=== PATIENT | male | born 1950 | race Caucasian/White ===

== ENCOUNTER 2021-06-19 17:12 | Emergency (ER) | payer MEDICARE, MEDICAID, SELFPAY ==
--- NOTE | 2021-06-19 17:31 | ED_ITS ---
HPI - Overdose General Chief Complaint: Overdose Stated Complaint: OD Time Seen by Provider: 06/19/21 17:31 History of Present Illness HPI Narrative: Patient is a 70-year-old male presents today with having overdose on heroin. Patient noted to be apnea. Given Narcan by PD. Patient subs equently woke up sent to [facility] for further evaluation. Patient from home. No fever no chills no cough no congestion or upper respiratory symptoms. Has no complaints at this time. Related Data Allergies Allergy/AdvReac Type Severity Reaction Status Date / Time No Known Allergies Allergy Verified 06/19/21 17:35 Review of Systems Review of Systems: No fever no chills no chest pain No shortness of breath no diaphoresis All systems reviewed otherwise negative [facility] Past Medical History Attestation statement: The following information was validated with the patient. Social History Social History Advance Directives: No Advance Directives Information Provided: Yes Physical Exam Vital Signs: Vital Signs: Last Vital Signs Temp 98.1 F 06/19/21 17:32 Pulse 101 H 06/19/21 17:32 Resp 120 H 06/19/21 17:32 BP 154/71 H 06/19/21 17:32 Pulse Ox 97 06/19/21 17:32 Body Mass Index 34.2 Appearance: Alert. Oriented X3. No acute distress. Eyes: Pupils equal, round and reactive to light. ENT: Pharynx normal. Neck: Normal inspection. Neck supple. No lymph nodes noted. No crepitus CVS: Normal heart rate and rhythm. Pulses normal. Normal S1 and S2 Respiratory: No respiratory distress. Breath sounds normal. No Wheezing. No rales Abdomen: Soft and nontender. No rigidity. No distention. good BS x4 Skin: Skin warm and dry. Normal skin color. Normal skin turgor. Extremities: No lower extremity edema. Neurovascular intact to all extremities. No Lacerations. No Rash Neuro: Oriented X 3. No motor deficit. No sensory deficit. Moving all extermities. No slurred speech MDM - Overdose MDM Narrative Medical decision making narrative: Explained to patient the need to stop using heroin. Patient also need to be monitored for approximately 2 hours. Currently in stable condition. Discharge Plan Discharge Clinical Impression: Opioid abuse Patient Disposition: Home, Self-Care Instructions: Polysubstance Abuse (ED), Narcotic Use Disorder (ED) Additional Instructions: Please stop using heroin. He almost by using heroin tonight. Please go to detox. Referrals: [facility] [Physician] - 2 days
[2021-06-19 17:32] VITALS: BP 154/71; PULSE 101; RESP 120; TEMP 36.7; O2SAT 97; BMI 34.2
--- NOTE | 2021-06-19 17:51 | MHC.RECOVSUP ---
? Reason for consult Recovery Support o Current location: ED18H o Identified substance use concern: Heroin - Overdose - Support ? Intervention: o Community resources provided o Harm reduction discussion ? Plan: <del>o</del> <del>Referral</del> <del>to</del> <del>[facility]</del> <del>o</del> <del>Bed</del> <del>search</del> <del>in</del> <del>progress</del> <del>to</del> <del>o</del> <del>Follow</del> <del>up</del> <del>tomorrow</del> <del>o</del> <del>Patient</del> <del>awaiting</del> <del>crisis</del> <del>evaluation</del> o Patient to follow up with [facility] after discharge ? Additional information:We talk recovery and Harm reduction.. Patient stated that he was lonely.. I gave patient [facility] info and we talk about what goes on there.. Seem interested and stated that he would check it out..
[2021-06-19 18:19] VITALS: BP 166/98; PULSE 74; RESP 16; TEMP 36.6; O2SAT 99
--- NOTE | 2021-06-19 18:32 | MHC.CARE ---
SUDE: Pt is pleasant and cooperative. Pt states he does not use heroin daily and states he is not detoxing therefore wouldn't be interested in detox. Pt reports he is feeling lonely and shares that he lives in [place] with a roommate but they have different lifestyles . Pt reports he has medical issues and a previous failed surgery. He reports he was at [facility] for two years recovering. pt states he has been in a lot of pain and this triggered his use. Pt met with our recovery team, he is interested in [facility] and states he would be interested in therapy.
[2021-06-19] MEDS: Naloxone HCl Nasal TAKE HOME 4 MG SPRAY NOSTRILALT (18:36)
== END 2021-06-19 18:39 | disposition home or self-care (01) ==
LOC: HO.ED 17:48
PROVIDERS: Emergency Provider Emergency Medicine Emergency Medical Services
DX: F11.10 Opioid abuse, uncomplicated (principal)
CPT/HCPCS: 99283

== ENCOUNTER 2024-06-12 06:45 | Outpatient (REF) | payer MEDICARE, MEDICAID, SELFPAY ==
[2024-06-12 07:10] LABS: Basophils Absolute Auto 0.1 X10*3/uL (0.0-0.2); Basophils Percent Auto 0.6 % (0-2); Eosinophils Absolute Auto 0.5 X10*3/uL (0.0-0.4); Eosinophils Percent Auto 3.4 % (0-4); Hematocrit 28.3 % (42.0-52.0); Hemoglobin 9.4 g/dl (14.0-18.0); Imm Gran Abs Auto 0.05 X10*3/uL (0.00-0.03); Imm Gran Pct Auto 0.4 % (0.0-0.4); Lymphocytes Absolute Auto 1.4 X10*3/uL (1.2-4.9); Lymphocytes Percent Auto 10.3 % (20-40); MANUAL DIFF FLAG SCAN; Mean Corpuscular HGB Conc 33.2 g/dl (31.0-36.0); Mean Corpuscular Hemoglobin 32.2 pg (27.0-33.0); Mean Corpuscular Volume 96.9 fL (80.0-98.0); Mean Platelet Volume 10.4 fL (9.4-12.4); Monocytes Percent Auto 14.4 % (2-11); Neutrophils Absolute Auto 9.7 x10*3/uL (2.0-8.3); Neutrophils Percent Auto 70.9 % (45-73); Platelet Count 403 X10*3/uL (160-400); Red Blood Count 2.92 X10*6/uL (4.60-5.80); Red Cell Distribution Width 12.6 % (11.0-16.0); SCAN SMEAR FLAG 1; White Blood Count 13.7 X10*3/uL (4.8-10.8)
[2024-06-12 07:31] LABS: Alanine Aminotransferase 43 U/L (0-40); Albumin Level 2.8 g/dL (3.5-5.0); Alkaline Phosphatase 128 U/L (39-117); Anion Gap 12 (12-20); Aspartate Amino Transferase 36 U/L (5-37); Bilirubin Total 0.5 mg/dL (0.0-1.0); Blood Urea Nitrogen 33 mg/dL (9-16); Calcium 9.1 mg/dL (8.4-10.2); Carbon Dioxide 19 mmol/L (22-29); Chloride 114 mmol/L (96-108); Estimated Glomerular Filt Rate 29; Glucose Random 63 mg/dL (60-115); Potassium 4.5 mmol/L (3.3-5.1); Sodium 140 mmol/L (135-145); Total Protein 5.6 g/dL (6.5-8.0)
[2024-06-12 07:36] LABS: SLIDE REVIEW VERIFIED
== END 2024-06-12 06:46 | disposition home or self-care (01) ==
LOC: HO.MMNH1L 06:45
PROVIDERS: Visit Provider Hospitalist
DX: I10 Essential (primary) hypertension (principal)
CPT/HCPCS: 36415; 80053; 85025

== ENCOUNTER 2024-06-16 06:10 | Outpatient (REF) | payer MEDICARE, MEDICAID, SELFPAY ==
[2024-06-16 06:13] LABS: MANUAL DIFF FLAG NO
[2024-06-16 06:44] LABS: Basophils Absolute Auto 0.1 X10*3/uL (0.0-0.2); Eosinophils Absolute Auto 0.4 X10*3/uL (0.0-0.4); Eosinophils Percent Auto 3.7 % (0-4); Hematocrit 25.8 % (42.0-52.0); Hemoglobin 8.9 g/dl (14.0-18.0); Imm Gran Abs Auto 0.11 X10*3/uL (0.00-0.03); Imm Gran Pct Auto 1.1 % (0.0-0.4); Lymphocytes Absolute Auto 2.3 X10*3/uL (1.2-4.9); Lymphocytes Percent Auto 22.1 % (20-40); Mean Corpuscular HGB Conc 34.5 g/dl (31.0-36.0); Mean Corpuscular Hemoglobin 32.4 pg (27.0-33.0); Mean Corpuscular Volume 93.8 fL (80.0-98.0); Monocytes Absolute Auto 1.5 X10*3/uL (0.1-1.2); Monocytes Percent Auto 14.1 % (2-11); Neutrophils Absolute Auto 6.1 x10*3/uL (2.0-8.3); Platelet Count 507 X10*3/uL (160-400); Red Blood Count 2.75 X10*6/uL (4.60-5.80); Red Cell Distribution Width 12.4 % (11.0-16.0); White Blood Count 10.4 X10*3/uL (4.8-10.8)
[2024-06-16 06:50] LABS: Alanine Aminotransferase 51 U/L (0-40); Albumin Level 2.9 g/dL (3.5-5.0); Alkaline Phosphatase 176 U/L (39-117); Anion Gap 14 (12-20); Aspartate Amino Transferase 42 U/L (5-37); Bilirubin Total 0.5 mg/dL (0.0-1.0); Blood Urea Nitrogen 32 mg/dL (9-16); Calcium 8.9 mg/dL (8.4-10.2); Carbon Dioxide 18 mmol/L (22-29); Chloride 110 mmol/L (96-108); Estimated Glomerular Filt Rate 29; Glucose Random 80 mg/dL (60-115); Potassium 4.4 mmol/L (3.3-5.1); Sodium 138 mmol/L (135-145); Total Protein 5.7 g/dL (6.5-8.0)
[2024-06-16 06:53] LABS: Estimated Average Glucose 94 mg/dL; Hemoglobin A1C 137.3698 umol/L; Hemoglobin A1c % 4.9 % (<6.0); Total Hemoglobin (HGBA1C) 4585.4014 umol/L
== END 2024-06-16 06:11 | disposition home or self-care (01) ==
LOC: HO.MMNH1L 06:10
PROVIDERS: Visit Provider Hospitalist
DX: E11.22 Type 2 diabetes mellitus with diabetic chronic kidney disease (principal); N18.4 Chronic kidney disease, stage 4 (severe); I73.9 Peripheral vascular disease, unspecified
CPT/HCPCS: 36415; 80053; 83036; 85025

== ENCOUNTER 2024-06-19 06:47 | Outpatient (REF) | payer MEDICARE, MEDICAID, SELFPAY ==
[2024-06-19 06:04] LABS: MANUAL DIFF FLAG NO
[2024-06-19 07:23] LABS: Basophils Absolute Auto 0.1 X10*3/uL (0.0-0.2); Basophils Percent Auto 0.8 % (0-2); Eosinophils Absolute Auto 0.5 X10*3/uL (0.0-0.4); Eosinophils Percent Auto 4.4 % (0-4); Hematocrit 27.2 % (42.0-52.0); Hemoglobin 9.2 g/dl (14.0-18.0); Imm Gran Abs Auto 0.11 X10*3/uL (0.00-0.03); Lymphocytes Absolute Auto 2.7 X10*3/uL (1.2-4.9); Lymphocytes Percent Auto 23.6 % (20-40); Mean Corpuscular HGB Conc 33.8 g/dl (31.0-36.0); Mean Corpuscular Hemoglobin 32.2 pg (27.0-33.0); Mean Corpuscular Volume 95.1 fL (80.0-98.0); Mean Platelet Volume 9.8 fL (9.4-12.4); Monocytes Absolute Auto 1.4 X10*3/uL (0.1-1.2); Monocytes Percent Auto 12.1 % (2-11); Neutrophils Absolute Auto 6.6 x10*3/uL (2.0-8.3); Neutrophils Percent Auto 58.1 % (45-73); Platelet Count 644 X10*3/uL (160-400); Red Blood Count 2.86 X10*6/uL (4.60-5.80); Red Cell Distribution Width 12.5 % (11.0-16.0); White Blood Count 11.3 X10*3/uL (4.8-10.8)
[2024-06-19 07:24] LABS: Anion Gap 14 (12-20); Blood Urea Nitrogen 27 mg/dL (9-16); Calcium 9.1 mg/dL (8.4-10.2); Carbon Dioxide 23 mmol/L (22-29); Chloride 109 mmol/L (96-108); Estimated Glomerular Filt Rate 33; Glucose Random 108 mg/dL (60-115); Potassium 4.8 mmol/L (3.3-5.1); Sodium 141 mmol/L (135-145)
[2024-06-19 07:57] LABS: Estimated Average Glucose 94 mg/dL; Hemoglobin A1C 69.5185 umol/L; Hemoglobin A1c % 4.9 % (<6.0); Total Hemoglobin (HGBA1C) 2348.0818 umol/L
== END 2024-06-19 06:48 | disposition home or self-care (01) ==
LOC: HO.MMNH1L 06:47
PROVIDERS: Visit Provider Hospitalist
DX: M48.061 Spinal stenosis, lumbar region without neurogenic claudication (principal); E11.22 Type 2 diabetes mellitus with diabetic chronic kidney disease; N18.9 Chronic kidney disease, unspecified
CPT/HCPCS: 36415; 80048; 83036; 85025

== ENCOUNTER 2024-06-26 06:32 | Outpatient (REF) | payer MEDICARE, MEDICAID, SELFPAY ==
[2024-06-26 07:11] LABS: Basophils Absolute Auto 0.1 X10*3/uL (0.0-0.2); Basophils Percent Auto 0.9 % (0-2); Eosinophils Absolute Auto 0.7 X10*3/uL (0.0-0.4); Eosinophils Percent Auto 5.6 % (0-4); Hematocrit 25.3 % (42.0-52.0); Hemoglobin 8.2 g/dl (14.0-18.0); Imm Gran Abs Auto 0.11 X10*3/uL (0.00-0.03); Imm Gran Pct Auto 0.9 % (0.0-0.4); Lymphocytes Absolute Auto 3.4 X10*3/uL (1.2-4.9); Lymphocytes Percent Auto 26.7 % (20-40); MANUAL DIFF FLAG SCAN; Mean Corpuscular HGB Conc 32.4 g/dl (31.0-36.0); Mean Corpuscular Hemoglobin 31.3 pg (27.0-33.0); Mean Corpuscular Volume 96.6 fL (80.0-98.0); Monocytes Absolute Auto 1.6 X10*3/uL (0.1-1.2); Monocytes Percent Auto 12.4 % (2-11); Neutrophils Absolute Auto 6.8 x10*3/uL (2.0-8.3); Neutrophils Percent Auto 53.5 % (45-73); Platelet Count 590 X10*3/uL (160-400); Red Blood Count 2.62 X10*6/uL (4.60-5.80); Red Cell Distribution Width 12.3 % (11.0-16.0); SCAN SMEAR FLAG 1; White Blood Count 12.8 X10*3/uL (4.8-10.8)
[2024-06-26 07:20] LABS: Anion Gap 13 (12-20); Blood Urea Nitrogen 39 mg/dL (9-16); Calcium 8.6 mg/dL (8.4-10.2); Carbon Dioxide 21 mmol/L (22-29); Chloride 109 mmol/L (96-108); Estimated Glomerular Filt Rate 23; Glucose Random 88 mg/dL (60-115); Potassium 5.2 mmol/L (3.3-5.1); Sodium 138 mmol/L (135-145)
[2024-06-26 07:50] LABS: SLIDE REVIEW VERIFIED
== END 2024-06-26 06:33 | disposition home or self-care (01) ==
LOC: HO.MMNH1L 06:32
PROVIDERS: Visit Provider Hospitalist
DX: I10 Essential (primary) hypertension (principal)
CPT/HCPCS: 36415; 80048; 85025

== ENCOUNTER 2024-06-28 05:39 | Outpatient (REF) | payer MEDICARE, MEDICAID, SELFPAY ==
[2024-06-28 05:41] LABS: MANUAL DIFF FLAG NO
[2024-06-28 06:09] LABS: Basophils Absolute Auto 0.1 X10*3/uL (0.0-0.2); Basophils Percent Auto 1.1 % (0-2); Eosinophils Absolute Auto 0.7 X10*3/uL (0.0-0.4); Eosinophils Percent Auto 6.5 % (0-4); Hematocrit 25.5 % (42.0-52.0); Hemoglobin 8.4 g/dl (14.0-18.0); Imm Gran Abs Auto 0.07 X10*3/uL (0.00-0.03); Imm Gran Pct Auto 0.6 % (0.0-0.4); Lymphocytes Absolute Auto 2.8 X10*3/uL (1.2-4.9); Lymphocytes Percent Auto 25.1 % (20-40); Mean Corpuscular HGB Conc 32.9 g/dl (31.0-36.0); Mean Corpuscular Volume 94.1 fL (80.0-98.0); Mean Platelet Volume 9.9 fL (9.4-12.4); Monocytes Absolute Auto 1.4 X10*3/uL (0.1-1.2); Monocytes Percent Auto 12.4 % (2-11); Neutrophils Percent Auto 54.3 % (45-73); Platelet Count 555 X10*3/uL (160-400); Red Blood Count 2.71 X10*6/uL (4.60-5.80); Red Cell Distribution Width 12.3 % (11.0-16.0)
[2024-06-28 06:47] LABS: Alanine Aminotransferase 17 U/L (0-40); Albumin Level 3.1 g/dL (3.5-5.0); Alkaline Phosphatase 167 U/L (39-117); Anion Gap 14 (12-20); Aspartate Amino Transferase 19 U/L (5-37); Bilirubin Total 0.4 mg/dL (0.0-1.0); Blood Urea Nitrogen 37 mg/dL (9-16); Carbon Dioxide 21 mmol/L (22-29); Chloride 109 mmol/L (96-108); Estimated Glomerular Filt Rate 25; Glucose Random 90 mg/dL (60-115); Potassium 5.5 mmol/L (3.3-5.1); Sodium 138 mmol/L (135-145); Total Protein 5.9 g/dL (6.5-8.0)
== END 2024-06-28 05:40 | disposition home or self-care (01) ==
LOC: HO.MMNH1L 05:39
PROVIDERS: Visit Provider Hospitalist
DX: M48.061 Spinal stenosis, lumbar region without neurogenic claudication (principal); Z47.89 Encounter for other orthopedic aftercare
CPT/HCPCS: 36415; 80053; 85025

== ENCOUNTER 2024-07-03 06:20 | Outpatient (REF) | payer MEDICARE, MEDICAID, SELFPAY ==
[2024-07-03 07:02] LABS: Basophils Absolute Auto 0.1 X10*3/uL (0.0-0.2); Eosinophils Absolute Auto 0.8 X10*3/uL (0.0-0.4); Eosinophils Percent Auto 6.8 % (0-4); Hematocrit 25.3 % (42.0-52.0); Hemoglobin 8.4 g/dl (14.0-18.0); Imm Gran Abs Auto 0.05 X10*3/uL (0.00-0.03); Imm Gran Pct Auto 0.5 % (0.0-0.4); Lymphocytes Absolute Auto 2.1 X10*3/uL (1.2-4.9); Lymphocytes Percent Auto 19.3 % (20-40); MANUAL DIFF FLAG SCAN; Mean Corpuscular HGB Conc 33.2 g/dl (31.0-36.0); Mean Corpuscular Hemoglobin 31.9 pg (27.0-33.0); Mean Corpuscular Volume 96.2 fL (80.0-98.0); Mean Platelet Volume 10.5 fL (9.4-12.4); Monocytes Percent Auto 17.7 % (2-11); Neutrophils Absolute Auto 6.1 x10*3/uL (2.0-8.3); Neutrophils Percent Auto 54.7 % (45-73); Platelet Count 355 X10*3/uL (160-400); Red Blood Count 2.63 X10*6/uL (4.60-5.80); Red Cell Distribution Width 12.2 % (11.0-16.0); SCAN SMEAR FLAG 1; White Blood Count 11.1 X10*3/uL (4.8-10.8)
[2024-07-03 07:12] LABS: Anion Gap 15 (12-20); Blood Urea Nitrogen 48 mg/dL (9-16); Calcium 8.6 mg/dL (8.4-10.2); Carbon Dioxide 17 mmol/L (22-29); Chloride 109 mmol/L (96-108); Estimated Glomerular Filt Rate 23; Glucose Random 78 mg/dL (60-115); Potassium 4.8 mmol/L (3.3-5.1); Sodium 136 mmol/L (135-145)
[2024-07-03 07:36] LABS: SLIDE REVIEW VERIFIED
== END 2024-07-03 06:21 | disposition home or self-care (01) ==
LOC: HO.MMNH1L 06:20
PROVIDERS: Visit Provider Hospitalist
DX: I10 Essential (primary) hypertension (principal)
CPT/HCPCS: 36415; 80048; 85025

== ENCOUNTER 2024-07-06 05:26 | Outpatient (REF) | payer MEDICARE, MEDICAID, SELFPAY ==
[2024-07-06 05:53] LABS: Basophils Absolute Auto 0.1 X10*3/uL (0.0-0.2); Basophils Percent Auto 0.7 % (0-2); Eosinophils Absolute Auto 0.8 X10*3/uL (0.0-0.4); Eosinophils Percent Auto 5.9 % (0-4); Hemoglobin 7.6 g/dl (14.0-18.0); Imm Gran Abs Auto 0.07 X10*3/uL (0.00-0.03); Imm Gran Pct Auto 0.5 % (0.0-0.4); Lymphocytes Absolute Auto 2.3 X10*3/uL (1.2-4.9); Lymphocytes Percent Auto 18.1 % (20-40); MANUAL DIFF FLAG SCAN; Mean Corpuscular Hemoglobin 31.1 pg (27.0-33.0); Mean Corpuscular Volume 94.3 fL (80.0-98.0); Mean Platelet Volume 10.4 fL (9.4-12.4); Monocytes Absolute Auto 1.9 X10*3/uL (0.1-1.2); Monocytes Percent Auto 14.3 % (2-11); Neutrophils Absolute Auto 7.8 x10*3/uL (2.0-8.3); Neutrophils Percent Auto 60.5 % (45-73); Platelet Count 307 X10*3/uL (160-400); Red Blood Count 2.44 X10*6/uL (4.60-5.80); Red Cell Distribution Width 12.2 % (11.0-16.0); SCAN SMEAR FLAG 1
[2024-07-06 06:03] LABS: Anion Gap 14 (12-20); Blood Urea Nitrogen 51 mg/dL (9-16); Calcium 8.1 mg/dL (8.4-10.2); Carbon Dioxide 19 mmol/L (22-29); Chloride 111 mmol/L (96-108); Estimated Glomerular Filt Rate 19; Glucose Random 92 mg/dL (60-115); Potassium 4.8 mmol/L (3.3-5.1); Sodium 139 mmol/L (135-145)
[2024-07-06 06:18] LABS: SLIDE REVIEW VERIFIED
== END 2024-07-06 05:27 | disposition home or self-care (01) ==
LOC: HO.MMNH1L 05:26
PROVIDERS: Visit Provider Internal Medicine
DX: N18.4 Chronic kidney disease, stage 4 (severe) (principal); I73.9 Peripheral vascular disease, unspecified; K21.9 Gastro-esophageal reflux disease without esophagitis
CPT/HCPCS: 36415; 80048; 85025

== ENCOUNTER 2024-07-07 05:27 | Outpatient (REF) | payer MEDICARE, MEDICAID, SELFPAY ==
[2024-07-07 05:53] LABS: Basophils Absolute Auto 0.1 X10*3/uL (0.0-0.2); Eosinophils Absolute Auto 0.8 X10*3/uL (0.0-0.4); Eosinophils Percent Auto 6.3 % (0-4); Hematocrit 23.3 % (42.0-52.0); Hemoglobin 7.7 g/dl (14.0-18.0); Imm Gran Abs Auto 0.05 X10*3/uL (0.00-0.03); Imm Gran Pct Auto 0.4 % (0.0-0.4); Lymphocytes Percent Auto 23.8 % (20-40); MANUAL DIFF FLAG SCAN; Mean Corpuscular Hemoglobin 30.9 pg (27.0-33.0); Mean Corpuscular Volume 93.6 fL (80.0-98.0); Mean Platelet Volume 10.2 fL (9.4-12.4); Monocytes Absolute Auto 1.8 X10*3/uL (0.1-1.2); Monocytes Percent Auto 14.2 % (2-11); Neutrophils Absolute Auto 6.8 x10*3/uL (2.0-8.3); Neutrophils Percent Auto 54.3 % (45-73); Platelet Count 306 X10*3/uL (160-400); Red Blood Count 2.49 X10*6/uL (4.60-5.80); SCAN SMEAR FLAG 1; White Blood Count 12.5 X10*3/uL (4.8-10.8)
[2024-07-07 06:09] LABS: Alanine Aminotransferase 11 U/L (0-40); Albumin Level 2.8 g/dL (3.5-5.0); Alkaline Phosphatase 119 U/L (39-117); Anion Gap 14 (12-20); Aspartate Amino Transferase 17 U/L (5-37); Bilirubin Total 0.5 mg/dL (0.0-1.0); Blood Urea Nitrogen 42 mg/dL (9-16); Calcium 8.5 mg/dL (8.4-10.2); Carbon Dioxide 19 mmol/L (22-29); Chloride 111 mmol/L (96-108); Estimated Glomerular Filt Rate 21; Glucose Random 100 mg/dL (60-115); Potassium 4.6 mmol/L (3.3-5.1); Sodium 139 mmol/L (135-145); Total Protein 5.4 g/dL (6.5-8.0)
[2024-07-07 06:10] LABS: SLIDE REVIEW VERIFIED
== END 2024-07-07 05:28 | disposition home or self-care (01) ==
LOC: HO.MMNH1L 05:27
PROVIDERS: Visit Provider Hospitalist
DX: M48.061 Spinal stenosis, lumbar region without neurogenic claudication (principal); E11.22 Type 2 diabetes mellitus with diabetic chronic kidney disease
CPT/HCPCS: 36415; 80053; 85025

== ENCOUNTER 2024-07-10 06:27 | Outpatient (REF) | payer MEDICARE, MEDICAID, SELFPAY ==
[2024-07-10 07:09] LABS: Basophils Absolute Auto 0.1 X10*3/uL (0.0-0.2); Basophils Percent Auto 0.7 % (0-2); Eosinophils Absolute Auto 1.3 X10*3/uL (0.0-0.4); Eosinophils Percent Auto 9.8 % (0-4); Hematocrit 24.2 % (42.0-52.0); Hemoglobin 8.2 g/dl (14.0-18.0); Imm Gran Abs Auto 0.09 X10*3/uL (0.00-0.03); Imm Gran Pct Auto 0.7 % (0.0-0.4); Lymphocytes Absolute Auto 2.4 X10*3/uL (1.2-4.9); Lymphocytes Percent Auto 17.7 % (20-40); MANUAL DIFF FLAG SCAN; Mean Corpuscular HGB Conc 33.9 g/dl (31.0-36.0); Mean Corpuscular Hemoglobin 31.7 pg (27.0-33.0); Mean Corpuscular Volume 93.4 fL (80.0-98.0); Mean Platelet Volume 10.3 fL (9.4-12.4); Monocytes Absolute Auto 2.2 X10*3/uL (0.1-1.2); Monocytes Percent Auto 15.8 % (2-11); Neutrophils Absolute Auto 7.5 x10*3/uL (2.0-8.3); Neutrophils Percent Auto 55.3 % (45-73); Platelet Count 346 X10*3/uL (160-400); Red Blood Count 2.59 X10*6/uL (4.60-5.80); Red Cell Distribution Width 12.1 % (11.0-16.0); SCAN SMEAR FLAG 1; White Blood Count 13.6 X10*3/uL (4.8-10.8)
[2024-07-10 07:35] LABS: SLIDE REVIEW VERIFIED
[2024-07-10 08:19] LABS: Anion Gap 12 (12-20); Blood Urea Nitrogen 30 mg/dL (9-16); Calcium 8.7 mg/dL (8.4-10.2); Carbon Dioxide 23 mmol/L (22-29); Chloride 108 mmol/L (96-108); Estimated Glomerular Filt Rate 28; Glucose Random 75 mg/dL (60-115); Potassium 4.2 mmol/L (3.3-5.1); Sodium 139 mmol/L (135-145)
== END 2024-07-10 06:28 | disposition home or self-care (01) ==
LOC: HO.MMNH1L 06:27
PROVIDERS: Visit Provider Hospitalist
DX: I10 Essential (primary) hypertension (principal)
CPT/HCPCS: 36415; 80048; 85025

== ENCOUNTER 2024-07-11 05:32 | Outpatient (REF) | payer MEDICARE, MEDICAID, SELFPAY ==
[2024-07-11 05:50] LABS: Basophils Absolute Auto 0.1 X10*3/uL (0.0-0.2); Basophils Percent Auto 0.7 % (0-2); Eosinophils Absolute Auto 1.2 X10*3/uL (0.0-0.4); Eosinophils Percent Auto 8.7 % (0-4); Hematocrit 24.9 % (42.0-52.0); Hemoglobin 8.6 g/dl (14.0-18.0); Imm Gran Abs Auto 0.08 X10*3/uL (0.00-0.03); Imm Gran Pct Auto 0.6 % (0.0-0.4); Lymphocytes Absolute Auto 2.4 X10*3/uL (1.2-4.9); Lymphocytes Percent Auto 17.9 % (20-40); MANUAL DIFF FLAG SCAN; Mean Corpuscular HGB Conc 34.5 g/dl (31.0-36.0); Mean Corpuscular Hemoglobin 31.9 pg (27.0-33.0); Mean Corpuscular Volume 92.2 fL (80.0-98.0); Mean Platelet Volume 10.1 fL (9.4-12.4); Monocytes Absolute Auto 1.9 X10*3/uL (0.1-1.2); Monocytes Percent Auto 14.2 % (2-11); Neutrophils Absolute Auto 7.8 x10*3/uL (2.0-8.3); Neutrophils Percent Auto 57.9 % (45-73); Platelet Count 364 X10*3/uL (160-400); Red Cell Distribution Width 12.1 % (11.0-16.0); SCAN SMEAR FLAG 1; White Blood Count 13.4 X10*3/uL (4.8-10.8)
[2024-07-11 06:06] LABS: Alanine Aminotransferase 15 U/L (0-40); Albumin Level 2.9 g/dL (3.5-5.0); Alkaline Phosphatase 139 U/L (39-117); Anion Gap 10 (12-20); Aspartate Amino Transferase 23 U/L (5-37); Bilirubin Total 0.7 mg/dL (0.0-1.0); Blood Urea Nitrogen 27 mg/dL (9-16); Calcium 8.6 mg/dL (8.4-10.2); Carbon Dioxide 22 mmol/L (22-29); Chloride 110 mmol/L (96-108); Estimated Glomerular Filt Rate 30; Glucose Random 86 mg/dL (60-115); Potassium 4.2 mmol/L (3.3-5.1); Sodium 138 mmol/L (135-145)
[2024-07-11 06:16] LABS: SLIDE REVIEW VERIFIED
== END 2024-07-11 05:33 | disposition home or self-care (01) ==
LOC: HO.MMNH1L 05:32
DX: M48.061 Spinal stenosis, lumbar region without neurogenic claudication (principal); Z47.89 Encounter for other orthopedic aftercare
CPT/HCPCS: 36415; 80053; 85025

== ENCOUNTER 2024-07-14 05:38 | Outpatient (REF) | payer MEDICARE, MEDICAID, SELFPAY ==
[2024-07-14 06:48] LABS: Vancomycin Trough 23.5 mcg/mL (10.0-20.0)
== END 2024-07-14 05:39 | disposition home or self-care (01) ==
LOC: HO.MMNH1L 05:38
PROVIDERS: Visit Provider Internal Medicine
DX: M48.061 Spinal stenosis, lumbar region without neurogenic claudication (principal); Z47.89 Encounter for other orthopedic aftercare
CPT/HCPCS: 36415; 80202; 87040

== ENCOUNTER 2024-07-15 07:57 | Outpatient (REF) | payer MEDICARE, MEDICAID, SELFPAY | END 2024-07-15 07:58 | disposition home or self-care (01) | LOC: HO.MMNH1L 07:57 | DX: M48.061 Spinal stenosis, lumbar region without neurogenic claudication (principal); E11.22 Type 2 diabetes mellitus with diabetic chronic kidney disease | CPT/HCPCS: 36415; 80202 ==

== ENCOUNTER 2024-07-17 06:06 | Outpatient (REF) | payer MEDICARE, MEDICAID, SELFPAY ==
[2024-07-17 06:37] LABS: Basophils Absolute Auto 0.1 X10*3/uL (0.0-0.2); Basophils Percent Auto 1.1 % (0-2); Eosinophils Absolute Auto 0.8 X10*3/uL (0.0-0.4); Eosinophils Percent Auto 6.6 % (0-4); Hematocrit 24.5 % (42.0-52.0); Hemoglobin 8.2 g/dl (14.0-18.0); Imm Gran Abs Auto 0.12 X10*3/uL (0.00-0.03); Lymphocytes Absolute Auto 2.6 X10*3/uL (1.2-4.9); Lymphocytes Percent Auto 21.5 % (20-40); MANUAL DIFF FLAG SCAN; Mean Corpuscular HGB Conc 33.5 g/dl (31.0-36.0); Mean Corpuscular Hemoglobin 31.2 pg (27.0-33.0); Mean Corpuscular Volume 93.2 fL (80.0-98.0); Mean Platelet Volume 9.9 fL (9.4-12.4); Monocytes Absolute Auto 1.7 X10*3/uL (0.1-1.2); Monocytes Percent Auto 14.3 % (2-11); Neutrophils Absolute Auto 6.7 x10*3/uL (2.0-8.3); Neutrophils Percent Auto 55.5 % (45-73); Platelet Count 492 X10*3/uL (160-400); Red Blood Count 2.63 X10*6/uL (4.60-5.80); Red Cell Distribution Width 12.6 % (11.0-16.0); SCAN SMEAR FLAG 1
[2024-07-17 06:56] LABS: Vancomycin Trough 22.9 mcg/mL (10.0-20.0)
[2024-07-17 06:59] LABS: Anion Gap 12 (12-20); Blood Urea Nitrogen 31 mg/dL (9-16); C Reactive Protein 4.44 mg/dL (< or = 0.50); Calcium 8.1 mg/dL (8.4-10.2); Carbon Dioxide 18 mmol/L (22-29); Chloride 114 mmol/L (96-108); Estimated Glomerular Filt Rate 28; Glucose Random 183 mg/dL (60-115); Potassium 3.7 mmol/L (3.3-5.1); Sodium 140 mmol/L (135-145)
[2024-07-17 07:15] LABS: Erythrocyte Sedimentation Rate 91 MM/HR (0-15)
[2024-07-17 07:38] LABS: SLIDE REVIEW VERIFIED
== END 2024-07-17 06:07 | disposition home or self-care (01) ==
LOC: HO.MMNH1L 06:06
DX: M48.061 Spinal stenosis, lumbar region without neurogenic claudication (principal); Z47.89 Encounter for other orthopedic aftercare
CPT/HCPCS: 36415; 80048; 80202; 82550; 85025; 85652; 86140

== ENCOUNTER 2024-07-19 06:54 | Outpatient (REF) | payer MEDICARE, MEDICAID, SELFPAY ==
[2024-07-19 14:39] LABS: Basophils Absolute Auto 0.1 X10*3/uL (0.0-0.2); Basophils Percent Auto 0.8 % (0-2); Eosinophils Absolute Auto 0.4 X10*3/uL (0.0-0.4); Eosinophils Percent Auto 2.6 % (0-4); Hematocrit 24.6 % (42.0-52.0); Hemoglobin 8.3 g/dl (14.0-18.0); Imm Gran Abs Auto 0.09 X10*3/uL (0.00-0.03); Imm Gran Pct Auto 0.6 % (0.0-0.4); Lymphocytes Absolute Auto 2.4 X10*3/uL (1.2-4.9); Lymphocytes Percent Auto 15.1 % (20-40); MANUAL DIFF FLAG SCAN; Mean Corpuscular HGB Conc 33.7 g/dl (31.0-36.0); Mean Corpuscular Hemoglobin 31.4 pg (27.0-33.0); Mean Corpuscular Volume 93.2 fL (80.0-98.0); Mean Platelet Volume 9.6 fL (9.4-12.4); Monocytes Absolute Auto 1.5 X10*3/uL (0.1-1.2); Monocytes Percent Auto 9.7 % (2-11); Neutrophils Absolute Auto 11.1 x10*3/uL (2.0-8.3); Neutrophils Percent Auto 71.2 % (45-73); Platelet Count 557 X10*3/uL (160-400); Red Blood Count 2.64 X10*6/uL (4.60-5.80); Red Cell Distribution Width 12.5 % (11.0-16.0); SCAN SMEAR FLAG 1; White Blood Count 15.6 X10*3/uL (4.8-10.8)
[2024-07-19 14:55] LABS: Alanine Aminotransferase 8 U/L (0-40); Albumin Level 3.1 g/dL (3.5-5.0); Alkaline Phosphatase 129 U/L (39-117); Anion Gap 13 (12-20); Aspartate Amino Transferase 19 U/L (5-37); Bilirubin Total 0.5 mg/dL (0.0-1.0); Blood Urea Nitrogen 36 mg/dL (9-16); C Reactive Protein 5.98 mg/dL (< or = 0.50); Carbon Dioxide 19 mmol/L (22-29); Chloride 111 mmol/L (96-108); Estimated Glomerular Filt Rate 26; Glucose Random 83 mg/dL (60-115); Potassium 4.5 mmol/L (3.3-5.1); Sodium 138 mmol/L (135-145); Total Protein 6.5 g/dL (6.5-8.0)
[2024-07-19 15:01] LABS: Vancomycin Trough 26.1 mcg/mL (10.0-20.0)
[2024-07-19 15:16] LABS: SLIDE REVIEW VERIFIED
[2024-07-19 15:20] LABS: Erythrocyte Sedimentation Rate 119 MM/HR (0-15)
== END 2024-07-19 06:55 | disposition home or self-care (01) ==
LOC: HO.MMNH1L 06:54
DX: M48.061 Spinal stenosis, lumbar region without neurogenic claudication (principal); Z47.89 Encounter for other orthopedic aftercare; N18.4 Chronic kidney disease, stage 4 (severe)
CPT/HCPCS: 36415; 80053; 80202; 82550; 85025; 85652; 86140

== ENCOUNTER 2024-07-21 05:31 | Outpatient (REF) | payer MEDICARE, MEDICAID, SELFPAY ==
[2024-07-21 05:54] LABS: Vancomycin Trough 21.3 mcg/mL (10.0-20.0)
== END 2024-07-21 05:32 | disposition home or self-care (01) ==
LOC: HO.MMNH1L 05:31
DX: M48.061 Spinal stenosis, lumbar region without neurogenic claudication (principal); Z47.89 Encounter for other orthopedic aftercare
CPT/HCPCS: 36415; 80202

== ENCOUNTER 2024-07-24 | Outpatient (REF) | payer MEDICARE, MEDICAID, SELFPAY ==
[2024-07-24 05:39] LABS: MANUAL DIFF FLAG NO
[2024-07-24 06:32] LABS: C Reactive Protein 3.05 mg/dL (< or = 0.50)
[2024-07-24 07:07] LABS: Basophils Absolute Auto 0.1 X10*3/uL (0.0-0.2); Eosinophils Absolute Auto 0.5 X10*3/uL (0.0-0.4); Eosinophils Percent Auto 4.5 % (0-4); Hematocrit 22.4 % (42.0-52.0); Hemoglobin 7.3 g/dl (14.0-18.0); Imm Gran Abs Auto 0.05 X10*3/uL (0.00-0.03); Imm Gran Pct Auto 0.4 % (0.0-0.4); Lymphocytes Absolute Auto 2.7 X10*3/uL (1.2-4.9); Lymphocytes Percent Auto 22.9 % (20-40); Mean Corpuscular HGB Conc 32.6 g/dl (31.0-36.0); Mean Corpuscular Hemoglobin 30.7 pg (27.0-33.0); Mean Corpuscular Volume 94.1 fL (80.0-98.0); Mean Platelet Volume 9.9 fL (9.4-12.4); Monocytes Absolute Auto 1.4 X10*3/uL (0.1-1.2); Monocytes Percent Auto 12.4 % (2-11); Neutrophils Absolute Auto 6.8 x10*3/uL (2.0-8.3); Neutrophils Percent Auto 58.8 % (45-73); Platelet Count 496 X10*3/uL (160-400); Red Blood Count 2.38 X10*6/uL (4.60-5.80); Red Cell Distribution Width 12.7 % (11.0-16.0); White Blood Count 11.6 X10*3/uL (4.8-10.8)
[2024-07-24 07:22] LABS: Anion Gap 12 (12-20); Blood Urea Nitrogen 31 mg/dL (9-16); Calcium 8.6 mg/dL (8.4-10.2); Carbon Dioxide 16 mmol/L (22-29); Chloride 115 mmol/L (96-108); Estimated Glomerular Filt Rate 26; Glucose Random 91 mg/dL (60-115); Potassium 3.8 mmol/L (3.3-5.1); Sodium 139 mmol/L (135-145)
[2024-07-24 07:59] LABS: Erythrocyte Sedimentation Rate 95 MM/HR (0-15)
--- OUTSIDE RECORDS SUMMARY | 2024-08-28 12:06 | XMS_ITS | Patient Health Record ---
Author Organization Vega Ricks MD Address [address] [place] [address] Care Team Providers Care Credit Collection Associate Name Role Phone Katheryn Oliver MD Primary Care Provider Unavailable Vega Ricks Unavailable [phone] REASON FOR REFERRAL No Information MEDICATIONS Medication [...] overlapping lesion of connective and soft tissue (839801862) Problem Cervical spondylosis (M47.812) Active confirmed Cervical spondylosis (810870626) Problem Lumbar spondylosis (M47.816) Active confirmed 950525535 Problem Thoracic spondylosis (M47.814) Active confirmed Thoracic spondylosis (820267225) Problem 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) Active confirmed 724902822 Problem 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) Active confirmed 5530593 Problem 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) Active confirmed 249260208 Problem Flat back syndrome (M40.30) Active confirmed PLAN OF TREATMENT Pending Test Test Name Order Date MRI : Cervical Spines 02/26/2021 MRI : Cervical Spines 07/24/2021 MRI : Cervical Spines 03/19/2021 MRI : Cervical Spines 01/20/2022 X ray : Shoulder, right 05/19/2022 X [...] RATE - ESR 08/15/2020 PROTIME - PT 08/15/2020 PROTIME - PT 08/14/2020 PROTIME - PT 08/16/2020 PROTIME - PT 08/10/2020 PROTIME - PT 2020 PROTIME - PT 08/12/2020 PROTIME - PT 08/11/2020 PROTIME - PT 08/09/2020 PARTIAL THROMBOPLASTIN TIME - PTT 2019 CMP 01/26/2022 CMP 02/10/2022 ELECTROLYTES - LYTES 08/12/2020 PASU PANEL - PASU PANEL 11/21/2020 PASU PANEL - PASU PANEL 06/12/2020 PASU PANEL - PASU PANEL 07/26/2020 PASU PANEL - PASU PANEL 04/28/2022 PASU PANEL - PASU PANEL 08/06/2022 BASIC METABOLIC PANEL - BMP 05/07/2022 BASIC METABOLIC PANEL - BMP 07/07/2018 BASIC METABOLIC PANEL - BMP 08/16/2020 BASIC METABOLIC PANEL - BMP 08/10/2020 BASIC METABOLIC PANEL - BMP 2020 SODIUM - NA 08/09/2020 SODIUM - NA 08/08/2020 SODIUM - NA 05/06/2022 SODIUM - NA 12/02/2020 SODIUM - NA 11/30/2020 SODIUM - NA 11/28/2020 POTASSIUM - K 11/28/2020 POTASSIUM - K 11/30/2020 POTASSIUM - K 12/02/2020 POTASSIUM - K 05/06/2022 POTASSIUM - K 05/06/2022 POTASSIUM - K 08/08/2020 POTASSIUM - K 08/08/2020 POTASSIUM - K 08/09/2020 GLUCOSE - GLU 08/08/2020 BUN - BUN 08/08/2020 BUN - BUN 08/09/2020 BUN - BUN 08/12/2020 BUN - BUN 05/06/2022 BUN - BUN 02/10/2022 BUN - BUN 12/02/2020 BUN - BUN 11/28/2020 CREATININE - CR 11/28/2020 CREATININE - CR 12/02/2020 CREATININE - CR 11/30/2020 CREATININE - CR 02/10/2022 CREATININE - CR 12/01/2020 CREATININE - CR 05/06/2022 CREATININE - CR 08/12/2020 CREATININE - CR 08/09/2020 CREATININE - CR 08/08/2020 CALCIUM - CA 08/09/2020 MAGNESIUM - MG 08/09/2020 MAGNESIUM - MG 08/08/2020 MAGNESIUM - MG 08/12/2020 MAGNESIUM - MG 08/10/2020 MAGNESIUM - MG 2020 MAGNESIUM - MG 08/16/2020 MAGNESIUM - MG 08/14/2020 MAGNESIUM - MG 05/06/2022 MAGNESIUM - MG 11/30/2020 MAGNESIUM - MG 12/02/2020 MAGNESIUM - MG 11/28/2020 MAGNESIUM - MG 11/29/2020 MAGNESIUM - MG 05/07/2022 PHOSPHORUS\,INORGANIC - IP 12/02/2020 HEPATIC PANEL - LFT 11/21/2020 HEPATIC PANEL - LFT 2020 HEPATIC PANEL - LFT 08/09/2020 HEPATIC PANEL - LFT 07/26/2020 ALBUMIN - ALB 08/10/2020 ALBUMIN - ALB 08/12/2020 CREATINE PHOSPHOKINASE - CPK 2020 CREATINE PHOSPHOKINASE - CPK 08/15/2020 URINALYSIS - UA 08/10/2020 URINALYSIS - UA 06/12/2020 URINE SEDIMENT - KUAM 06/12/2020 URINE SEDIMENT - KUAM 08/10/2020 C-REACTIVE PROTEIN - CRPR 08/15/2020 GRAM STAIN - KGST 2020 GRAM STAIN - KGST 08/08/2020 GRAM STAIN - KGST 08/08/2020 BLOOD CULTURE - KB 08/10/2020 BLOOD CULTURE - [facility] 08/10/2020 RED BLOOD CELLS 11/28/2020 GLYCOHGB 04/28/2022 GLYCOHGB 08/06/2022 GLYCOHGB 11/21/2020 GLYCOHGB 07/26/2020 GLYCOHGB 08/09/2020 GLYCOHGB 06/12/2020 BBK SPECIMEN 11/28/2020 BEDSIDE GLUCOSE 11/28/2020 BEDSIDE GLUCOSE 11/29/2020 BEDSIDE GLUCOSE 11/29/2020 BEDSIDE GLUCOSE 11/29/2020 BEDSIDE GLUCOSE 11/29/2020 BEDSIDE GLUCOSE 11/30/2020 BEDSIDE GLUCOSE 11/29/2020 BEDSIDE GLUCOSE 12/02/2020 BEDSIDE GLUCOSE 11/30/2020 BEDSIDE GLUCOSE 11/30/2020 BEDSIDE GLUCOSE 11/30/2020 BEDSIDE GLUCOSE 12/01/2020 BEDSIDE GLUCOSE 12/01/2020 BEDSIDE GLUCOSE 12/01/2020 BEDSIDE GLUCOSE 12/01/2020 BEDSIDE GLUCOSE 12/02/2020 BEDSIDE GLUCOSE 05/05/2022 BEDSIDE GLUCOSE 05/05/2022 BEDSIDE GLUCOSE 05/05/2022 BEDSIDE GLUCOSE 05/05/2022 BEDSIDE GLUCOSE 05/07/2022 BEDSIDE GLUCOSE 05/07/2022 BEDSIDE GLUCOSE 05/06/2022 BEDSIDE GLUCOSE 05/07/2022 BEDSIDE GLUCOSE 05/06/2022 BEDSIDE GLUCOSE 05/06/2022 BEDSIDE GLUCOSE 05/06/2022 BEDSIDE GLUCOSE 07/06/2018 BEDSIDE GLUCOSE 07/07/2018 BEDSIDE GLUCOSE 07/07/2018 BEDSIDE GLUCOSE 07/07/2018 BEDSIDE GLUCOSE 07/07/2018 BEDSIDE GLUCOSE 07/08/2018 BEDSIDE GLUCOSE 07/08/2018 BEDSIDE GLUCOSE 07/08/2018 BEDSIDE GLUCOSE 08/09/2020 BEDSIDE GLUCOSE 08/09/2020 BEDSIDE GLUCOSE 08/09/2020 BEDSIDE GLUCOSE 08/10/2020 BEDSIDE GLUCOSE 08/09/2020 BEDSIDE GLUCOSE 08/08/2020 BEDSIDE GLUCOSE 08/08/2020 BEDSIDE GLUCOSE 11/28/2020 BEDSIDE GLUCOSE 08/16/2020 BEDSIDE GLUCOSE 08/15/2020 BEDSIDE GLUCOSE 08/15/2020 BEDSIDE GLUCOSE 08/16/2020 BEDSIDE GLUCOSE 08/15/2020 BEDSIDE GLUCOSE 08/15/2020 BEDSIDE GLUCOSE 08/14/2020 BEDSIDE GLUCOSE 08/14/2020 BEDSIDE GLUCOSE 08/14/2020 BEDSIDE GLUCOSE 08/14/2020 BEDSIDE GLUCOSE 08/11/2020 BEDSIDE GLUCOSE 08/10/2020 BEDSIDE GLUCOSE 08/10/2020 BEDSIDE GLUCOSE 08/10/2020 BEDSIDE GLUCOSE 08/11/2020 BEDSIDE GLUCOSE 08/11/2020 BEDSIDE GLUCOSE 08/11/2020 BEDSIDE GLUCOSE 2020 BEDSIDE GLUCOSE 2020 BEDSIDE GLUCOSE 2020 BEDSIDE GLUCOSE 2020 BEDSIDE GLUCOSE 2020 BEDSIDE GLUCOSE 2020 BEDSIDE GLUCOSE 08/12/2020 BEDSIDE GLUCOSE 08/12/2020 BEDSIDE GLUCOSE 08/12/2020 BEDSIDE GLUCOSE 08/12/2020 MANUAL DIFF 06/12/2020 MANUAL DIFF 05/06/2022 MRSA/MSSA PCR 04/28/2022 MRSA/MSSA PCR 08/06/2022 MRSA/MSSA PCR 06/12/2020 MRSA/MSSA PCR 07/26/2020 MRSA/MSSA PCR 07/06/2018 MRSA/MSSA PCR 11/21/2020 CT Scan : Cervical Spine 10/12/2022 TS Automated 08/08/2020 TS Automated 05/05/2022 TS Automated 11/28/2020 BMPGFR 11/29/2020 BMPGFR 08/14/2020 BMPGFR 08/15/2020 BMPGFR 08/11/2020 XM 08/08/2020 XM 11/28/2020 TSAPASU 04/28/2022 TSAPASU 08/06/2022 TSAPASU 06/12/2020 TSAPASU 07/26/2020 TSAPASU 11/21/2020 KORT 2020 KORT 08/08/2020 KORT 08/08/2020 KANASTER 08/08/2020 KANASTER 08/08/2020 KANASTER 2020 CERVICAL SPINE 2-3 VIEWS 05/06/2022 PORTABLE CHEST ONE VIEW 08/15/2020 PORTABLE CHEST ONE VIEW 08/15/2020 LUMBAR SPINE 2-3 VIEWS 02/26/2021 MRI SPINE-LUMBAR W _ WO GADO 08/09/2020 MRI SPINE-LUMBAR 02/10/2022 CT CERVICAL SPINE WO CONTRAST 05/22/2022 FLUORO C ARM OR 11/28/2020 FLUORO C ARM OR 05/05/2022 FLUORO C ARM OR 08/08/2020 MRI SPINE,CERVICAL 02/10/2022 DIFFA5 07/26/2020 DIFFA5 11/21/2020 AOT 08/11/2020 AOT 08/08/2020 AOT 08/09/2020 AOT 12/02/2020 AOT 05/06/2022 AOT 05/06/2022 SURG 11/28/2020 SURG 05/05/2022 [id number] 11/28/2020 XR SHOULDER RIGHT 3 VIEWS 05/22/2022 RAPID COVID-19 05/03/2022 RAPID COVID-19 12/01/2020 RAPID COVID-19 08/06/2020 RAPID COVID-19 08/15/2020 Insurance Providers Payer Name Payer Address Payer Phone Subscriber Number Group Number Insured Name Patient Relationship to Insured Coverage Start Date Coverage End Date MEDICARE [address] [place] [address] [phone] [id number] Aleksandr Perez Self - patient is the insured Medicare Advantage through [facility] [id number] Aleksandr Perez Self - patient is the insured [facility] [id number] Aleksandr Perez Self - patient is the insured
== END 2024-07-24 00:01 | disposition home or self-care (01) ==
LOC: HO.MMNH1L
DX: I12.9 Hypertensive chronic kidney disease with stage 1 through stage 4 chronic kidney disease, or unspecified chronic kidney disease (principal); E11.22 Type 2 diabetes mellitus with diabetic chronic kidney disease; N18.9 Chronic kidney disease, unspecified
CPT/HCPCS: 36415; 80048; 82550; 85025; 85652; 86140

== ENCOUNTER 2024-07-25 15:58 | Outpatient (REF) | payer MEDICARE, MEDICAID, SELFPAY ==
[2024-07-25 16:47] LABS: Vancomycin Trough 15.3 mcg/mL (10.0-20.0)
== END 2024-07-25 15:59 | disposition home or self-care (01) ==
LOC: HO.MMNH1L 15:58
DX: M48.061 Spinal stenosis, lumbar region without neurogenic claudication (principal); E11.22 Type 2 diabetes mellitus with diabetic chronic kidney disease
CPT/HCPCS: 36415; 80202

== ENCOUNTER 2024-08-04 05:23 | Outpatient (REF) | payer MEDICARE, MEDICAID, SELFPAY ==
[2024-08-04 05:26] LABS: MANUAL DIFF FLAG NO
[2024-08-04 05:45] LABS: Basophils Absolute Auto 0.1 X10*3/uL (0.0-0.2); Basophils Percent Auto 0.7 % (0-2); Eosinophils Absolute Auto 0.7 X10*3/uL (0.0-0.4); Eosinophils Percent Auto 5.7 % (0-4); Hematocrit 24.3 % (42.0-52.0); Hemoglobin 8.5 g/dl (14.0-18.0); Imm Gran Abs Auto 0.08 X10*3/uL (0.00-0.03); Imm Gran Pct Auto 0.7 % (0.0-0.4); Lymphocytes Absolute Auto 2.8 X10*3/uL (1.2-4.9); Lymphocytes Percent Auto 23.3 % (20-40); Mean Corpuscular Hemoglobin 31.4 pg (27.0-33.0); Mean Corpuscular Volume 89.7 fL (80.0-98.0); Monocytes Absolute Auto 1.5 X10*3/uL (0.1-1.2); Monocytes Percent Auto 12.4 % (2-11); Neutrophils Absolute Auto 6.8 x10*3/uL (2.0-8.3); Neutrophils Percent Auto 57.2 % (45-73); Platelet Count 339 X10*3/uL (160-400); Red Blood Count 2.71 X10*6/uL (4.60-5.80); Red Cell Distribution Width 13.5 % (11.0-16.0); White Blood Count 11.9 X10*3/uL (4.8-10.8)
[2024-08-04 06:02] LABS: Alanine Aminotransferase < 6 U/L (0-40); Albumin Level 2.6 g/dL (3.5-5.0); Alkaline Phosphatase 106 U/L (39-117); Anion Gap 12 (12-20); Aspartate Amino Transferase 21 U/L (5-37); Bilirubin Total 0.3 mg/dL (0.0-1.0); Blood Urea Nitrogen 24 mg/dL (9-16); Calcium 8.3 mg/dL (8.4-10.2); Carbon Dioxide 19 mmol/L (22-29); Chloride 113 mmol/L (96-108); Estimated Glomerular Filt Rate 26; Glucose Random 174 mg/dL (60-115); Potassium 3.6 mmol/L (3.3-5.1); Sodium 140 mmol/L (135-145); Total Protein 5.4 g/dL (6.5-8.0)
== END 2024-08-04 05:24 | disposition home or self-care (01) ==
LOC: HO.MMNH1L 05:23
DX: I10 Essential (primary) hypertension (principal)
CPT/HCPCS: 36415; 80053; 85025

== ENCOUNTER 2024-08-24 05:57 | Outpatient (REF) | payer MEDICARE, MEDICAID, SELFPAY ==
--- OUTSIDE RECORDS SUMMARY | 2024-08-24 06:01 | XMS_ITS | Patient Health Record ---
Author Organization Vega Ricks MD Address [address] [place] [address] Care Team Providers Care Process Engineering Manager Name Role Phone Katheryn Oliver MD Primary Care Provider Unavailable Vega Ricks Unavailable [phone] REASON FOR REFERRAL No Information MEDICATIONS Medication SIG (Take, Route, Fr equency, Duration) Notes Start Date End Date Status Soma Active glipiZIDE Active metFORMIN HCl Active Cartia XT Active KlonoPIN Active oxyCODONE HCl 5 MG 1 tablet as needed O rally every 6 hrs 06/18/2022 Active PROBLEMS Problem Type ICD Code Onset Dates Problem Status W/U Status Risk SNOMED Code Notes Problem 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, 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) Active confirmed Malignant neoplasm, overlapping lesion of connective and soft tissue (244302778) Problem Cervical spondylosis (M47.812) Active confirmed Cervical spondylosis (543666262) Problem Lumbar spondylosis (M47.816) Active confirmed 833730649 Problem Thoracic spondylosis (M47.814) Active confirmed Thoracic spondylosis (270268749) Problem 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) Active confirmed 000218211 Problem 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) Active confirmed 5607557 Problem 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) Active confirmed 879863348 Problem Flat back syndrome (M40.30) Active confirmed PLAN OF TREATMENT Pending Test Test Name Order Date MRI : Cervical Spines 07/24/2021 MRI : Cervical Spines 03/19/2021 MRI : Cervical Spines 01/20/2022 MRI : Cervical Spines 02/26/2021 X ray : Shoulder, right 05/19/2022 X ray : Shoulder, right 10/12/2022 MRI : Lumbar with and without Gadolinium 01/20/2022 COMPLETE BLOOD COUNT W PLT - CBC 020 COMPLETE BLOOD COUNT W PLT - CBC 020 COMPLETE BLOOD COUNT W PLT - CBC 020 COMPLETE BLOOD COUNT W PLT - CBC 020 COMPLETE BLOOD COUNT W PLT - CBC 020 COMPLETE BLOOD COUNT W PLT - CBC 020 COMPLETE BLOOD COUNT W PLT - CBC 020 COMPLETE BLOOD COUNT W PLT - CBC 020 COMPLETE BLOOD COUNT W PLT - CBC 020 COMPLETE BLOOD COUNT W PLT - CBC 021 COMPLETE BLOOD COUNT W PLT - CBC 021 COMPLETE BLOOD COUNT W PLT - CBC 021 COMPLETE BLOOD COUNT W PLT - CBC 021 COMPLETE BLOOD COUNT W PLT - CBC 021 COMPLETE BLOOD COUNT W PLT - CBC 021 COMPLETE BLOOD COUNT W PLT - CBC 021 COMPLETE BLOOD COUNT W PLT - CBC 022 COMPLETE BLOOD COUNT W PLT - CBC 022 CBC WITH AUTO-DIFF - CBCAD 05/07/2022 CBC WITH AUTO-DIFF - CBCAD 02/10/2022 CBC WITH AUTO-DIFF - CBCAD 04/28/2022 CBC WITH AUTO-DIFF - CBCAD 08/14/2020 CBC WITH AUTO-DIFF - CBCAD 01/26/2022 CBC WITH AUTO-DIFF - CBCAD 06/12/2020 SEDIMENTATION RATE - ESR 08/15/2020 PROTIME - PT 08/14/2020 PROTIME - PT 08/16/2020 PROTIME - PT 08/15/2020 PROTIME - PT 2020 PROTIME - PT 08/12/2020 PROTIME - PT 08/11/2020 PROTIME - PT 08/10/2020 PROTIME - PT 08/09/2020 PARTIAL THROMBOPLASTIN TIME - PTT 2019 CMP 01/26/2022 CMP 02/10/2022 ELECTROLYTES - LYTES 08/12/2020 PASU PANEL - PASU PANEL 11/21/2020 PASU PANEL - PASU PANEL 07/26/2020 PASU PANEL - PASU PANEL 06/12/2020 PASU PANEL - PASU PANEL 04/28/2022 PASU PANEL - PASU PANEL 08/06/2022 BASIC METABOLIC PANEL - BMP 05/07/2022 BASIC METABOLIC PANEL - BMP 07/07/2018 BASIC METABOLIC PANEL - BMP 08/16/2020 BASIC METABOLIC PANEL - BMP 2020 BASIC METABOLIC PANEL - BMP 08/10/2020 SODIUM - NA 08/09/2020 SODIUM - NA 08/08/2020 SODIUM - NA 12/02/2020 SODIUM - NA 05/06/2022 SODIUM - NA 11/30/2020 SODIUM - NA 11/28/2020 POTASSIUM - K 11/28/2020 POTASSIUM - K 11/30/2020 POTASSIUM - K 05/06/2022 POTASSIUM - K 12/02/2020 POTASSIUM - K 05/06/2022 POTASSIUM - K 08/08/2020 POTASSIUM - K 08/08/2020 POTASSIUM - K 08/09/2020 GLUCOSE - GLU 08/08/2020 BUN - BUN 08/08/2020 BUN - BUN 08/09/2020 BUN - BUN 08/12/2020 BUN - BUN 12/02/2020 BUN - BUN 02/10/2022 BUN - BUN 05/06/2022 BUN - BUN 11/28/2020 CREATININE - CR 11/28/2020 CREATININE - CR 11/30/2020 CREATININE - CR 12/01/2020 CREATININE - CR 05/06/2022 CREATININE - CR 02/10/2022 CREATININE - CR 12/02/2020 CREATININE - CR 08/12/2020 CREATININE - CR 08/09/2020 CREATININE - CR 08/08/2020 CALCIUM - CA 08/09/2020 MAGNESIUM - MG 08/09/2020 MAGNESIUM - MG 08/08/2020 MAGNESIUM - MG 08/12/2020 MAGNESIUM - MG 2020 MAGNESIUM - MG 08/10/2020 MAGNESIUM - MG 08/16/2020 MAGNESIUM - MG 08/14/2020 MAGNESIUM - MG 12/02/2020 MAGNESIUM - MG 05/06/2022 MAGNESIUM - MG 11/30/2020 MAGNESIUM - MG 11/28/2020 MAGNESIUM - MG 11/29/2020 MAGNESIUM - MG 05/07/2022 PHOSPHORUS\,INORGANIC - IP 12/02/2020 HEPATIC PANEL - LFT 11/21/2020 HEPATIC PANEL - LFT 2020 HEPATIC PANEL - LFT 07/26/2020 HEPATIC PANEL - LFT 08/09/2020 ALBUMIN - ALB 08/12/2020 ALBUMIN - ALB 08/10/2020 CREATINE PHOSPHOKINASE - CPK 2020 CREATINE PHOSPHOKINASE - CPK 08/15/2020 URINALYSIS - UA 08/10/2020 URINALYSIS - UA 06/12/2020 URINE SEDIMENT - KUAM 06/12/2020 URINE SEDIMENT - KUAM 08/10/2020 C-REACTIVE PROTEIN - CRPR 08/15/2020 GRAM STAIN - KGST 2020 GRAM STAIN - KGST 08/08/2020 GRAM STAIN - KGST 08/08/2020 BLOOD CULTURE - KB 08/10/2020 BLOOD CULTURE - [facility] 08/10/2020 RED BLOOD CELLS 11/28/2020 GLYCOHGB 11/21/2020 GLYCOHGB 04/28/2022 GLYCOHGB 08/06/2022 GLYCOHGB 08/09/2020 GLYCOHGB 06/12/2020 GLYCOHGB 07/26/2020 BBK SPECIMEN 11/28/2020 BEDSIDE GLUCOSE 11/28/2020 BEDSIDE GLUCOSE 11/29/2020 BEDSIDE GLUCOSE 11/29/2020 BEDSIDE GLUCOSE 11/29/2020 BEDSIDE GLUCOSE 11/29/2020 BEDSIDE GLUCOSE 11/29/2020 BEDSIDE GLUCOSE 11/30/2020 BEDSIDE GLUCOSE 11/30/2020 BEDSIDE GLUCOSE 11/30/2020 BEDSIDE GLUCOSE 11/30/2020 BEDSIDE GLUCOSE 12/01/2020 BEDSIDE GLUCOSE 12/01/2020 BEDSIDE GLUCOSE 12/01/2020 BEDSIDE GLUCOSE 12/01/2020 BEDSIDE GLUCOSE 12/02/2020 BEDSIDE GLUCOSE 12/02/2020 BEDSIDE GLUCOSE 05/05/2022 BEDSIDE GLUCOSE 05/05/2022 BEDSIDE GLUCOSE 05/05/2022 BEDSIDE GLUCOSE 05/05/2022 BEDSIDE GLUCOSE 05/06/2022 BEDSIDE GLUCOSE 05/07/2022 BEDSIDE GLUCOSE 05/07/2022 BEDSIDE GLUCOSE 05/06/2022 BEDSIDE GLUCOSE 05/07/2022 BEDSIDE GLUCOSE 05/06/2022 BEDSIDE GLUCOSE 05/06/2022 BEDSIDE GLUCOSE 07/06/2018 BEDSIDE GLUCOSE 07/07/2018 BEDSIDE GLUCOSE 07/07/2018 BEDSIDE GLUCOSE 07/07/2018 BEDSIDE GLUCOSE 07/07/2018 BEDSIDE GLUCOSE 07/08/2018 BEDSIDE GLUCOSE 07/08/2018 BEDSIDE GLUCOSE 07/08/2018 BEDSIDE GLUCOSE 08/09/2020 BEDSIDE GLUCOSE 08/09/2020 BEDSIDE GLUCOSE 08/09/2020 BEDSIDE GLUCOSE 08/10/2020 BEDSIDE GLUCOSE 08/09/2020 BEDSIDE GLUCOSE 08/08/2020 BEDSIDE GLUCOSE 08/11/2020 BEDSIDE GLUCOSE 08/11/2020 BEDSIDE GLUCOSE 08/11/2020 BEDSIDE GLUCOSE 08/11/2020 BEDSIDE GLUCOSE 08/10/2020 BEDSIDE GLUCOSE 08/10/2020 BEDSIDE GLUCOSE 08/10/2020 BEDSIDE GLUCOSE 08/08/2020 BEDSIDE GLUCOSE 2020 BEDSIDE GLUCOSE 2020 BEDSIDE GLUCOSE 2020 BEDSIDE GLUCOSE 2020 BEDSIDE GLUCOSE 2020 BEDSIDE GLUCOSE 2020 BEDSIDE GLUCOSE 08/12/2020 BEDSIDE GLUCOSE 08/12/2020 BEDSIDE GLUCOSE 08/12/2020 BEDSIDE GLUCOSE 08/12/2020 BEDSIDE GLUCOSE 08/14/2020 BEDSIDE GLUCOSE 08/14/2020 BEDSIDE GLUCOSE 08/14/2020 BEDSIDE GLUCOSE 08/14/2020 BEDSIDE GLUCOSE 11/28/2020 BEDSIDE GLUCOSE 08/16/2020 BEDSIDE GLUCOSE 08/15/2020 BEDSIDE GLUCOSE 08/15/2020 BEDSIDE GLUCOSE 08/16/2020 BEDSIDE GLUCOSE 08/15/2020 BEDSIDE GLUCOSE 08/15/2020 MANUAL DIFF 06/12/2020 MANUAL DIFF 05/06/2022 MRSA/MSSA PCR 04/28/2022 MRSA/MSSA PCR 08/06/2022 MRSA/MSSA PCR 06/12/2020 MRSA/MSSA PCR 07/26/2020 MRSA/MSSA PCR 07/06/2018 MRSA/MSSA PCR 11/21/2020 CT Scan : Cervical Spine 10/12/2022 TS Automated 08/08/2020 TS Automated 05/05/2022 TS Automated 11/28/2020 BMPGFR 11/29/2020 BMPGFR 08/14/2020 BMPGFR 08/15/2020 BMPGFR 08/11/2020 XM 08/08/2020 XM 11/28/2020 TSAPASU 04/28/2022 TSAPASU 08/06/2022 TSAPASU 07/26/2020 TSAPASU 06/12/2020 TSAPASU 11/21/2020 KORT 2020 KORT 08/08/2020 KORT 08/08/2020 KANASTER 08/08/2020 KANASTER 08/08/2020 KANASTER 2020 CERVICAL SPINE 2-3 VIEWS 05/06/2022 PORTABLE CHEST ONE VIEW 08/15/2020 PORTABLE CHEST ONE VIEW 08/15/2020 LUMBAR SPINE 2-3 VIEWS 02/26/2021 MRI SPINE-LUMBAR W _ WO GADO 08/09/2020 MRI SPINE-LUMBAR 02/10/2022 CT CERVICAL SPINE WO CONTRAST 05/22/2022 FLUORO C ARM OR 05/05/2022 FLUORO C ARM OR 11/28/2020 FLUORO C ARM OR 08/08/2020 MRI SPINE,CERVICAL 02/10/2022 DIFFA5 07/26/2020 DIFFA5 11/21/2020 AOT 08/11/2020 AOT 08/08/2020 AOT 08/09/2020 AOT 12/02/2020 AOT 05/06/2022 AOT 05/06/2022 SURG 05/05/2022 SURG 11/28/2020 [id number] 11/28/2020 XR SHOULDER RIGHT 3 VIEWS 05/22/2022 RAPID COVID-19 12/01/2020 RAPID COVID-19 05/03/2022 RAPID COVID-19 08/06/2020 RAPID COVID-19 08/15/2020 Insurance Providers Payer Name Payer Address Payer Phone Subscriber Number Group Number Insured Name Patient Relationship to Insured Coverage Start Date Coverage End Date MEDICARE [address] [place] [address] [phone] [id number] Aleksandr Perez Self - patient is the insured Medicare Advantage through [facility] [id number] Aleksandr Perez Self - patient is the insured [facility] [id number] Aleksandr Perez Self - patient is the insured
[2024-08-24 06:25] LABS: Alanine Aminotransferase 18 U/L (0-40); Albumin Level 2.9 g/dL (3.5-5.0); Alkaline Phosphatase 116 U/L (39-117); Anion Gap 13 (12-20); Aspartate Amino Transferase 34 U/L (5-37); Bilirubin Total 0.4 mg/dL (0.0-1.0); Blood Urea Nitrogen 36 mg/dL (9-16); Calcium 8.1 mg/dL (8.4-10.2); Carbon Dioxide 22 mmol/L (22-29); Chloride 112 mmol/L (96-108); Estimated Glomerular Filt Rate 32; Glucose Random 149 mg/dL (60-115); Potassium 3.4 mmol/L (3.3-5.1); Sodium 144 mmol/L (135-145); Total Protein 5.9 g/dL (6.5-8.0)
[2024-08-24 07:03] LABS: Basophils Absolute Auto 0.1 X10*3/uL (0.0-0.2); Basophils Percent Auto 1.1 % (0-2); Eosinophils Absolute Auto 0.7 X10*3/uL (0.0-0.4); Eosinophils Percent Auto 6.9 % (0-4); Hematocrit 25.1 % (42.0-52.0); Hemoglobin 8.5 g/dl (14.0-18.0); Imm Gran Abs Auto 0.03 X10*3/uL (0.00-0.03); Imm Gran Pct Auto 0.3 % (0.0-0.4); Lymphocytes Absolute Auto 2.7 X10*3/uL (1.2-4.9); Lymphocytes Percent Auto 26.1 % (20-40); MANUAL DIFF FLAG SCAN; Mean Corpuscular HGB Conc 33.9 g/dl (31.0-36.0); Mean Corpuscular Hemoglobin 30.5 pg (27.0-33.0); Mean Platelet Volume 10.1 fL (9.4-12.4); Monocytes Absolute Auto 1.5 X10*3/uL (0.1-1.2); Monocytes Percent Auto 14.6 % (2-11); Neutrophils Absolute Auto 5.3 x10*3/uL (2.0-8.3); Platelet Count 357 X10*3/uL (160-400); Red Blood Count 2.79 X10*6/uL (4.60-5.80); Red Cell Distribution Width 12.9 % (11.0-16.0); SCAN SMEAR FLAG 1; White Blood Count 10.5 X10*3/uL (4.8-10.8)
[2024-08-24 07:33] LABS: SLIDE REVIEW VERIFIED
== END 2024-08-24 05:58 | disposition home or self-care (01) ==
LOC: HO.MMNH1L 05:57
PROVIDERS: Visit Provider Nurse Practitioner
DX: I10 Essential (primary) hypertension (principal)
CPT/HCPCS: 36415; 80053; 85025

== ENCOUNTER 2024-08-28 07:06 | Outpatient (REF) | payer MEDICARE, MEDICAID, SELFPAY ==
[2024-08-28 06:17] LABS: MANUAL DIFF FLAG NO
[2024-08-28 06:50] LABS: Basophils Absolute Auto 0.1 X10*3/uL (0.0-0.2); Basophils Percent Auto 1.3 % (0-2); Eosinophils Absolute Auto 0.6 X10*3/uL (0.0-0.4); Eosinophils Percent Auto 6.4 % (0-4); Hemoglobin 8.9 g/dl (14.0-18.0); Imm Gran Abs Auto 0.02 X10*3/uL (0.00-0.03); Imm Gran Pct Auto 0.2 % (0.0-0.4); Lymphocytes Absolute Auto 2.8 X10*3/uL (1.2-4.9); Lymphocytes Percent Auto 29.8 % (20-40); Mean Corpuscular Hemoglobin 30.1 pg (27.0-33.0); Mean Corpuscular Volume 91.2 fL (80.0-98.0); Mean Platelet Volume 10.2 fL (9.4-12.4); Monocytes Absolute Auto 1.5 X10*3/uL (0.1-1.2); Monocytes Percent Auto 15.7 % (2-11); Neutrophils Absolute Auto 4.5 x10*3/uL (2.0-8.3); Neutrophils Percent Auto 46.6 % (45-73); Platelet Count 378 X10*3/uL (160-400); Red Blood Count 2.96 X10*6/uL (4.60-5.80); Red Cell Distribution Width 12.9 % (11.0-16.0); White Blood Count 9.5 X10*3/uL (4.8-10.8)
[2024-08-28 07:14] LABS: Alanine Aminotransferase 21 U/L (0-40); Albumin Level 2.9 g/dL (3.5-5.0); Alkaline Phosphatase 136 U/L (39-117); Anion Gap 15 (12-20); Aspartate Amino Transferase 28 U/L (5-37); Bilirubin Total 0.6 mg/dL (0.0-1.0); Blood Urea Nitrogen 29 mg/dL (9-16); Carbon Dioxide 25 mmol/L (22-29); Chloride 108 mmol/L (96-108); Estimated Glomerular Filt Rate 34; Glucose Random 70 mg/dL (60-115); Potassium 3.5 mmol/L (3.3-5.1); Sodium 144 mmol/L (135-145); Total Protein 5.9 g/dL (6.5-8.0)
== END 2024-08-28 07:07 | disposition home or self-care (01) ==
LOC: HO.MMNH1L 07:06
PROVIDERS: Visit Provider Nurse Practitioner
DX: I10 Essential (primary) hypertension (principal)
CPT/HCPCS: 36415; 80053; 85025

== ENCOUNTER 2024-09-04 06:31 | Outpatient (REF) | payer MEDICARE, MEDICAID, SELFPAY ==
[2024-09-04 06:06] LABS: MANUAL DIFF FLAG NO
[2024-09-04 06:23] LABS: Basophils Absolute Auto 0.1 X10*3/uL (0.0-0.2); Basophils Percent Auto 0.6 % (0-2); Eosinophils Absolute Auto 0.1 X10*3/uL (0.0-0.4); Eosinophils Percent Auto 0.5 % (0-4); Hematocrit 24.8 % (42.0-52.0); Hemoglobin 8.4 g/dl (14.0-18.0); Imm Gran Abs Auto 0.07 X10*3/uL (0.00-0.03); Imm Gran Pct Auto 0.6 % (0.0-0.4); Lymphocytes Absolute Auto 1.8 X10*3/uL (1.2-4.9); Lymphocytes Percent Auto 15.9 % (20-40); Mean Corpuscular HGB Conc 33.9 g/dl (31.0-36.0); Mean Corpuscular Hemoglobin 30.5 pg (27.0-33.0); Mean Corpuscular Volume 90.2 fL (80.0-98.0); Mean Platelet Volume 9.8 fL (9.4-12.4); Monocytes Absolute Auto 1.5 X10*3/uL (0.1-1.2); Monocytes Percent Auto 13.3 % (2-11); Neutrophils Absolute Auto 7.8 x10*3/uL (2.0-8.3); Neutrophils Percent Auto 69.1 % (45-73); Platelet Count 352 X10*3/uL (160-400); Red Blood Count 2.75 X10*6/uL (4.60-5.80); Red Cell Distribution Width 12.8 % (11.0-16.0); White Blood Count 11.3 X10*3/uL (4.8-10.8)
[2024-09-04 06:32] LABS: Alanine Aminotransferase 8 U/L (0-40); Albumin Level 2.9 g/dL (3.5-5.0); Alkaline Phosphatase 114 U/L (39-117); Anion Gap 12 (12-20); Aspartate Amino Transferase 16 U/L (5-37); Bilirubin Total 0.3 mg/dL (0.0-1.0); Blood Urea Nitrogen 31 mg/dL (9-16); Carbon Dioxide 25 mmol/L (22-29); Chloride 110 mmol/L (96-108); Estimated Glomerular Filt Rate 35; Glucose Random 136 mg/dL (60-115); Sodium 143 mmol/L (135-145); Total Protein 5.8 g/dL (6.5-8.0)
--- OUTSIDE RECORDS SUMMARY | 2024-09-04 06:33 | XMS_ITS | Patient Health Record ---
Author Organization Vega Ricks MD Address [address] [place] [address] Care Team Providers Care Trust And Estates Attorney Name Role Phone Katheryn Oliver MD Primary Care Provider Unavailable Vega Ricks Unavailable [phone] REASON FOR REFERRAL No Information MEDICATIONS Medication [...] overlapping lesion of connective and soft tissue (044161362) Problem Cervical spondylosis (M47.812) Active confirmed Cervical spondylosis (818975268) Problem Lumbar spondylosis (M47.816) Active confirmed 219448351 Problem Thoracic spondylosis (M47.814) Active confirmed Thoracic spondylosis (982750166) Problem 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) Active confirmed 332840174 Problem 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) Active confirmed 4879070 Problem 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) Active confirmed 937206550 Problem Flat back syndrome (M40.30) Active confirmed PLAN OF TREATMENT Pending Test Test Name Order Date MRI : Cervical Spines 03/19/2021 MRI : Cervical Spines 01/20/2022 MRI : Cervical Spines 07/24/2021 MRI : Cervical Spines 02/26/2021 X ray : Shoulder, right 10/12/2022 X ray : Shoulder, right 05/19/2022 MRI : Lumbar with and without Gadolinium [...] CBCAD 08/14/2020 CBC WITH AUTO-DIFF - CBCAD 06/12/2020 CBC WITH AUTO-DIFF - CBCAD 01/26/2022 SEDIMENTATION RATE - ESR 08/15/2020 PROTIME - [...] CULTURE - KB 08/10/2020 BLOOD CULTURE - [facility] 08/10/2020 RED BLOOD CELLS 11/28/2020 GLYCOHGB 04/28/2022 GLYCOHGB 08/06/2022 GLYCOHGB 11/21/2020 GLYCOHGB 08/09/2020 GLYCOHGB 06/12/2020 GLYCOHGB 07/26/2020 BBK [...] GLUCOSE 05/06/2022 BEDSIDE GLUCOSE 05/06/2022 BEDSIDE GLUCOSE 07/07/2018 BEDSIDE GLUCOSE 07/07/2018 BEDSIDE GLUCOSE 07/07/2018 BEDSIDE GLUCOSE 07/08/2018 BEDSIDE GLUCOSE 07/08/2018 BEDSIDE GLUCOSE 07/08/2018 BEDSIDE GLUCOSE 07/06/2018 BEDSIDE GLUCOSE 07/07/2018 BEDSIDE GLUCOSE 08/09/2020 BEDSIDE GLUCOSE 08/09/2020 BEDSIDE [...] Date MEDICARE [address] [place] [address] [phone] [id number] Aleksandr Perez Self - patient is the insured Medicare Advantage through [facility] [id number] Aleksandr Perez Self - patient is the insured [facility] [id number] Aleksandr Perez Self - patient is the insured
== END 2024-09-04 06:32 | disposition home or self-care (01) ==
LOC: HO.MMNH1L 06:31
PROVIDERS: Visit Provider Nurse Practitioner
DX: I10 Essential (primary) hypertension (principal)
CPT/HCPCS: 36415; 80053; 85025

== ENCOUNTER 2024-09-11 06:06 | Outpatient (REF) | payer MEDICARE, MEDICAID, SELFPAY ==
[2024-09-11 06:06] LABS: MANUAL DIFF FLAG NO
[2024-09-11 06:36] LABS: Basophils Absolute Auto 0.1 X10*3/uL (0.0-0.2); Basophils Percent Auto 0.6 % (0-2); Eosinophils Absolute Auto 0.3 X10*3/uL (0.0-0.4); Hematocrit 24.8 % (42.0-52.0); Hemoglobin 8.3 g/dl (14.0-18.0); Imm Gran Abs Auto 0.05 X10*3/uL (0.00-0.03); Imm Gran Pct Auto 0.5 % (0.0-0.4); Lymphocytes Absolute Auto 2.3 X10*3/uL (1.2-4.9); Lymphocytes Percent Auto 21.2 % (20-40); Mean Corpuscular HGB Conc 33.5 g/dl (31.0-36.0); Mean Corpuscular Hemoglobin 30.2 pg (27.0-33.0); Mean Corpuscular Volume 90.2 fL (80.0-98.0); Mean Platelet Volume 9.6 fL (9.4-12.4); Monocytes Absolute Auto 1.4 X10*3/uL (0.1-1.2); Monocytes Percent Auto 13.1 % (2-11); Neutrophils Absolute Auto 6.8 x10*3/uL (2.0-8.3); Neutrophils Percent Auto 61.6 % (45-73); Platelet Count 354 X10*3/uL (160-400); Red Blood Count 2.75 X10*6/uL (4.60-5.80); Red Cell Distribution Width 13.2 % (11.0-16.0)
[2024-09-11 06:52] LABS: Alanine Aminotransferase 7 U/L (0-40); Albumin Level 2.9 g/dL (3.5-5.0); Alkaline Phosphatase 106 U/L (39-117); Anion Gap 9 (12-20); Aspartate Amino Transferase 16 U/L (5-37); Bilirubin Total 0.4 mg/dL (0.0-1.0); Blood Urea Nitrogen 37 mg/dL (9-16); Calcium 7.8 mg/dL (8.4-10.2); Carbon Dioxide 24 mmol/L (22-29); Chloride 114 mmol/L (96-108); Estimated Glomerular Filt Rate 34; Glucose Random 127 mg/dL (60-115); Potassium 3.9 mmol/L (3.3-5.1); Sodium 143 mmol/L (135-145); Total Protein 5.6 g/dL (6.5-8.0)
== END 2024-09-11 06:07 | disposition home or self-care (01) ==
LOC: HO.MMNH3L 06:06
PROVIDERS: Visit Provider Nurse Practitioner
DX: I10 Essential (primary) hypertension (principal)
CPT/HCPCS: 36415; 80053; 85025

== ENCOUNTER 2024-09-25 06:09 | Outpatient (REF) | payer MEDICARE, MEDICAID, SELFPAY ==
[2024-09-25 06:00] LABS: MANUAL DIFF FLAG NO
[2024-09-25 07:01] LABS: Basophils Absolute Auto 0.1 X10*3/uL (0.0-0.2); Basophils Percent Auto 0.8 % (0-2); Eosinophils Absolute Auto 0.3 X10*3/uL (0.0-0.4); Eosinophils Percent Auto 2.8 % (0-4); Hematocrit 30.2 % (42.0-52.0); Hemoglobin 10.2 g/dl (14.0-18.0); Imm Gran Abs Auto 0.05 X10*3/uL (0.00-0.03); Imm Gran Pct Auto 0.4 % (0.0-0.4); Lymphocytes Absolute Auto 2.6 X10*3/uL (1.2-4.9); Lymphocytes Percent Auto 22.2 % (20-40); Mean Corpuscular HGB Conc 33.8 g/dl (31.0-36.0); Mean Corpuscular Hemoglobin 30.4 pg (27.0-33.0); Mean Corpuscular Volume 90.1 fL (80.0-98.0); Mean Platelet Volume 9.5 fL (9.4-12.4); Monocytes Absolute Auto 1.3 X10*3/uL (0.1-1.2); Monocytes Percent Auto 11.1 % (2-11); Neutrophils Absolute Auto 7.2 x10*3/uL (2.0-8.3); Neutrophils Percent Auto 62.7 % (45-73); Platelet Count 274 X10*3/uL (160-400); Red Blood Count 3.35 X10*6/uL (4.60-5.80); Red Cell Distribution Width 13.5 % (11.0-16.0); White Blood Count 11.5 X10*3/uL (4.8-10.8)
[2024-09-25 07:12] LABS: Alanine Aminotransferase 27 U/L (0-40); Albumin Level 3.4 g/dL (3.5-5.0); Alkaline Phosphatase 146 U/L (39-117); Anion Gap 12 (12-20); Aspartate Amino Transferase 29 U/L (5-37); Bilirubin Total 0.7 mg/dL (0.0-1.0); Blood Urea Nitrogen 48 mg/dL (9-16); Calcium 8.3 mg/dL (8.4-10.2); Carbon Dioxide 20 mmol/L (22-29); Chloride 116 mmol/L (96-108); Estimated Glomerular Filt Rate 37; Glucose Random 88 mg/dL (60-115); Potassium 4.3 mmol/L (3.3-5.1); Sodium 144 mmol/L (135-145); Total Protein 6.8 g/dL (6.5-8.0)
== END 2024-09-25 06:10 | disposition home or self-care (01) ==
LOC: HO.MMNH3L 06:09
PROVIDERS: Visit Provider Nurse Practitioner
DX: I10 Essential (primary) hypertension (principal)
CPT/HCPCS: 36415; 80053; 85025

== ENCOUNTER 2024-10-27 05:40 | Outpatient (REF) | payer MEDICARE, MEDICAID, SELFPAY ==
[2024-10-27 05:43] LABS: MANUAL DIFF FLAG NO
[2024-10-27 06:04] LABS: Basophils Absolute Auto 0.1 X10*3/uL (0.0-0.2); Basophils Percent Auto 0.9 % (0-2); Eosinophils Absolute Auto 0.4 X10*3/uL (0.0-0.4); Hematocrit 27.8 % (42.0-52.0); Hemoglobin 9.4 g/dl (14.0-18.0); Imm Gran Abs Auto 0.04 X10*3/uL (0.00-0.03); Imm Gran Pct Auto 0.4 % (0.0-0.4); Lymphocytes Absolute Auto 2.1 X10*3/uL (1.2-4.9); Lymphocytes Percent Auto 21.7 % (20-40); Mean Corpuscular HGB Conc 33.8 g/dl (31.0-36.0); Mean Corpuscular Hemoglobin 31.6 pg (27.0-33.0); Mean Corpuscular Volume 93.6 fL (80.0-98.0); Mean Platelet Volume 9.7 fL (9.4-12.4); Monocytes Absolute Auto 1.4 X10*3/uL (0.1-1.2); Monocytes Percent Auto 15.2 % (2-11); Neutrophils Absolute Auto 5.5 x10*3/uL (2.0-8.3); Neutrophils Percent Auto 57.8 % (45-73); Platelet Count 297 X10*3/uL (160-400); Red Blood Count 2.97 X10*6/uL (4.60-5.80); Red Cell Distribution Width 14.2 % (11.0-16.0); White Blood Count 9.5 X10*3/uL (4.8-10.8)
[2024-10-27 06:28] LABS: Alanine Aminotransferase 35 U/L (0-40); Albumin Level 2.9 g/dL (3.5-5.0); Alkaline Phosphatase 146 U/L (39-117); Anion Gap 11 (12-20); Aspartate Amino Transferase 36 U/L (5-37); Bilirubin Total 0.5 mg/dL (0.0-1.0); Blood Urea Nitrogen 55 mg/dL (9-16); Calcium 8.1 mg/dL (8.4-10.2); Carbon Dioxide 19 mmol/L (22-29); Chloride 117 mmol/L (96-108); Estimated Glomerular Filt Rate 29; Glucose Random 80 mg/dL (60-115); Potassium 4.2 mmol/L (3.3-5.1); Sodium 143 mmol/L (135-145)
[2024-10-27 07:24] LABS: Estimated Average Glucose 108 mg/dL; Hemoglobin A1C 86.5375 umol/L; Hemoglobin A1c % 5.4 % (<6.0); Total Hemoglobin (HGBA1C) 2404.0125 umol/L
== END 2024-10-27 05:41 | disposition home or self-care (01) ==
LOC: HO.MMNH3L 05:40
PROVIDERS: Visit Provider Student in an Organized Health Care Education/Training Program
DX: E11.9 Type 2 diabetes mellitus without complications (principal)
CPT/HCPCS: 36415; 80053; 83036; 85025

== ENCOUNTER 2024-10-30 06:27 | Outpatient (REF) | payer MEDICARE, MEDICAID, SELFPAY ==
--- OUTSIDE RECORDS SUMMARY | 2024-10-30 06:32 | XMS_ITS | Clinical Summary ---
Author Organization [facility], Address [address] [facility] [address] [place] [address] Phone Care Team Providers Care Administrative Liaison Name Role Phone Maico Garcia Primary Care Provider [phone] Allergies No known active allergies Medications amLODIPine (NORVASC) 2.5 MG tablet Take 2.5 mg by mouth in the morning. 2 Active carisoprodol (SOMA) 350 MG tablet (Schedule IV Drug) TK 1 T PO FIVE TIMES A DAY Oral for 30 0 Active clonazePAM (KlonoPIN) 0.125 MG dispersible tablet Active cloNIDine (CATAPRES) 0.1 MG tablet Active Dulaglutide (Trulicity) 0.75 MG/0.5ML solution pen-injector ADMINISTER 0.75 MG UNDER THE SKIN EVERY WEEK 2 Active furosemide (LASIX) 20 MG tablet Take 20 mg by mouth in the morning. 1 Active lisinopril 20 MG tablet Take 20 mg by mouth in the morning. 2 Active LORazepam (ATIVAN) 0.5 MG tablet Active omeprazole (PriLOSEC) [address] capsule 1 (one) time each day Active pregabalin (LYRICA) 100 MG capsule 1 capsule Active sildenafil (VIAGRA) 100 MG tablet 1 (one) time each day Active spironolactone (ALDACTONE) 25 MG tablet TK 1 T PO D Oral for 30 Active tamsulosin (FLOMAX) 0.4 MG 24 hr capsule Active Active Problems Problem Noted Date Diagnosed Date Hyperkalemia 10/01/2022 longterm use of nonsteroidal anti-inflammatorie s 10/01/2022 Type 2 diabetes mellitus 09/30/2022 Essential hypertension 09/30/2022 Hyperlipidemia 09/30/2022 Congestive heart failure 09/30/2022 Disorder of kidney due to diabetes mellitus 09/07 Chronic kidney disease, stage 4 (severe) 023 Immunizations Name Administration Dates Next Due Influenza, Unspecified 08/19/2018 Family History Medical History Relation Comments Heart disease Father Other Mother Cerebral artery occulsion Relation Status Comments Father Mother Social History Tobacco Use Types Packs/Day Years Used Date Smoking Tobacco: Never Tobacco Cessation:Counseling Given: Not Answered Alcohol Use Standard Drinks/Week Comments Yes 0 (1 standard drink = 0.6 oz pure alcohol) Alcoholic Drinks/day: Occasional social drink Sex and Gender Information Value Date Recorded Sex Assigned at Not on file Legal Sex Male 4:45 PM EST Gender Identity Not on file Sexual Orientation Not on file Plan of Treatment Health Maintenance Due Date Last Done Comments Pneumococcal Vaccine: 65+ Ye ars (1 of 2 - PCV) 1958 Colorectal Cancer Screening: Annual FOBT 2001 Colorectal Cancer Screening: Colonoscopy 2001 Colorectal Cancer Screening: Sigmoidoscopy 2001 Diabetes: Hemoglobin A1C 09/30/2022 Diabetes: Ophthalmology Exam 09/30/2022 Diabetes: Pedal Pulse Checked 09/30/2022 Diabetes: Sensory Foot Exam 09/30/2022 Diabetes: Visual Foot Exam 09/30/2022 Influenza Vaccine (#1) 2024 08/19/2018 Hepatitis B Vaccine Aged Out No longe r eligible based on patient's age to complete this topic Insurance MEDICARE [facility] MEDICARE MEDICAID [place] Care Teams Administrative Liaison Relationship Specialty Start Date End Date Maico Garcia PA [address] [place] [address] [phone] PCP - General Physician Transformation Coach 08/03/22
--- OUTSIDE RECORDS SUMMARY | 2024-10-30 06:32 | XMS_ITS ---
Author Organization [facility] Address [address] [place] [id number] Care Team Providers Care Administrative Job Titles Name Role Phone Gordo Lanier DO Primary Care Provider Emily Chauhan [phone] Encounters Encounter Location Date Provider Diagnosis [address] [address] 09/04/2024 Emily Madrid Plan Of Treatment Next Appt Details Provider Name:Emily cross, 12/28/2024 03:00:00 PM, [address] [place] [address], [phone], Progress Notes * Aleksandr PEREZ ODOB:1950 (74 yo M)Acc No.[id number]:09/04/2024 Progress Note Patient:?Aleksandr PEREZ Megan Provider:?Emily Madrid DPM :1950???Age:74 Y???Sex:Male Edson e:09/04/2024 Address:[address] [place] [address], [place], [place] Pcp:Gordo Lanier DO Subjective: * Chief Complaints: * ??? * Medical History:? Objective: * Vitals:? Assessment: Plan: * Treatment: * Images: * The named appointment provid er may or may not be the originator of this progress note, and it is not deemed complete until electronically signed by the appointment provider. Sign off status: Pending * Provider:?Emily Madrid DPM Date:?1 Generated for Demian august/Cordell/Robertoitting on:?10/30/2024 06:32 AM EST
--- OUTSIDE RECORDS SUMMARY | 2024-10-30 06:32 | XMS_ITS ---
Author Organization [facility] Address [address] [place] [address] Care Team Providers Care Superintendent Circus Name Role Phone Gordo Lanier DO Primary Care Provider Emily Chauhan Unavailable [phone] BrooksJames Unavailable [phone] Allergies No Known Allergies REASON FOR VISIT Painful nail(s) aggrevated by shoes and causing difficulty standing/walking. Medications Medication SIG (Take, Route, Frequency, Duration) Notes Start Date End Date Status Morphine Not-Taking Extra Depth Diabetic Shoes with 3 Pair Custom heat-molded multi-density innersoles for 1 year Dx: 06/22/2017 Not-Taking Extra Depth Diabetic Shoes with 3 Pair Custom heat-molded multi-density innersoles for 1 year Dx: 10/25/2020 Not-Taking Antibiotic Not-Takin g cloNIDine HCl Not-Ta sen Trulicity Active Extra Depth Orthopedic Shoes (1 Pair) with Customized Heat Molded Multidensity Innersoles (3 Pair) as directed Dx: NIDDM/Polyneuropathy (E11.42), Hammertoe Foot Deformity (M20.41,M20.42), Preulcerative Skin Lesion(s) (L85.1 07/24/2016 Active Sertraline HCl 25 MG 1 tablet Orally Onc e a day Active Soma 250 MG 1 tablet as needed Orally Four times a day PRN Active Extra Depth Diabetic Shoes with 3 Pair Custom heat-molded multi-density innersoles for 1 year Dx: Not-Taking oxyCODONE HCl 20 MG 1 tablet as needed Orally three times a day Active clonazePAM Active Flomax Active Furosemide Active Lyrica 100 MG 1 capsule Orally Three a day Active metFORMIN HCl 500 MG TK 2 TS PO BID Oral for 90 Not-Taking Spironolactone 25 MG TK 1 T PO D Oral fo r 30 Not-Taking Omeprazole 20 MG 2 capsules Orally Once a day Not-Taking Sildenafil Citrate 100 MG 1 tablet as needed Orally Once a day Not-Taking Extra Depth Diabetic Shoes with 3 Pair Custom heat-molded multi-density innersoles for 1 year Dx: Active Ergocalciferol 39747 UNIT 1 capsule Orally Once a day Not-Taking Afrezza 8 (60)& 12 (30) UNIT U TID UTD Inhalation for 30 Not-Taking Carisoprodol 350 MG (Schedule IV Drug) TK 1 T PO FIVE TIMES A DAY Oral for 30 Not-Taking clonazePAM 1 MG (Schedule IV Drug) TK 1 T PO BID Oral for 30 Not-Taking Morphine Sulfate ER 60 MG (Schedule II Drug) TK 2 TS PO BID Oral for 30 Not-Taking Toujeo SoloStar 70 units a day Not-Taking Insulin Not-Taking MS Contin Not-Taking Vitamin D Not-Taking Labetalol HCl Not-Ta sen Ativan PRN Not-Taking Cartia XT 240 MG TK 1 C PO D Oral for 30 Not-Taking Social History Tobacco Use: Social History Observation Description Date Details (start date - stop date) Never Smoker NA - NA Tobacco Use/Smoking Question Answer Notes Are you a: nonsmoker Additional Findings: Tobacco Non-User Current no n-smoker Alcohol Screen Question Answer Notes Did you have a drink containing alcohol in the p ast year? No Points 0 Interpretation Negative Tobacco use other than smoking: Question Answer Notes Are you an other tobacco user? No Vital Signs Height 5 ft 10 in in 05/24/2024 Weight 202 lbs 05/24/2024 BMI 28.98 kg/m2 05/24/2024 Blood pressure systolic 118 mm Hg 05/24/20 24 Blood pressure diastolic 60 mm Hg 024 Encounters Encounter Location Date Provider Diagnosis [facility] [address] [place] [address] 05/24/2024 James Brooks Tinea unguium B35.1 ; Pain in right toe(s) M79.674 ; Type 1 diabetes mellitus with diabetic polyneuropathy E10.42 ; Pain in left toe(s) M79.675 ; Other hammer toe(s) (acquired), right foot M20.41 ; Other hammer toe(s) (acquired), left foot M20.42 ; Primary osteoarthritis, left ankle and foot M19.072 ; Primary osteoarthritis, right ankle and foot M19.071 ; Foot drop, right foot M21.371 and 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, bilateral legs I70.203 Assessments Encounter Date Diagnosis (ICD Code) Assessment Notes Treatment Notes Treatment Clinical Notes Section Notes 05/24/2024 Tinea unguium (ICD-10 - B35.1) 05/24/2024 Pain in right toe(s) (ICD-10 - M79.674) 05/24/2024 Type 1 diabetes mellitus with diabetic polyneuropathy (ICD-10 - E10.42) 05/24/2024 Pain in left toe(s) (ICD-10 - M79.675) 05/24/2024 Other hammer toe(s) (acquired), right foot (ICD-10 - M20.41) 05/24/2024 Other hammer toe(s) (acquired), left foot (ICD-10 - M20.42) 05/24/2024 Primary osteoarthritis, 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) 05/24/2024 Primary osteoarthritis, right ankle and foot (ICD-10 - M19.071) 05/24/2024 Foot drop, right foot (ICD-10 - M21.371) 05/24/2024 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, bilateral legs (ICD-10 - I70.203) Plan Of Treatment Medication Medication Name Sig Start Date Stop Date Notes Extra Depth Diabetic Shoes w ith 3 Pair Custom heat-molded multi-density innersoles for 1 year Dx: Next Appt Details Follow Up: 3 Months, Reason: Provider Name:Emily cross, 12/28/2024 03:00:00 PM, [address] [place] [address], [place], [address], Procedure Notes * Category Sub-Category Detail Notes Debride Nail 6-10 Nail debridement Nail debridem ent performed extensively to reduce/remove overall nail length and girth, subungual debris, and necrotic tissue, by manual and electrical means with use of a nail nipper and/or dremel, to more viable healthy nail plate or bed tissue 6-10. Silver nitrate used for any petechial bleeding as necessary. Patient chooses, no pharmaceutical tx (34808) Keratoma Treatment Parring or Cutting o f Benign Hyperkeratotic Lesion(s) 03745 (2-4 Lesions) - The Benign hyperkeratotic lesions, as described above were pared, and/or cut utilizing a sterile #15 blade, tissue nippers, and/or dremel Progress Notes * Aleksandr PEREZ ODOB:1950 (73 yo M)Acc No.[id number]:05/24/2024 Progress Note Patient:?Aleksandr Perez Provider:?James Brooks DPM :1950???Age:73 Y???Sex:Male Edson e:05/24/2024 Address:[place] [address] Pcp:Gordo Lanier DO Subjective: * Chief Complaints: * ??? Painful nail(s) aggrevat ed by shoes and causing difficulty standing/walking. * HPI: ???Painful Nails:?Pt States Last PCP Visit:?Date:?11/26/2023 ?Misc:?recent hospitalization at [facility] 11/11/[address] Campos --14th spinal sx; pt will have another sx on 06/05/24.? * ROS:?General/Constitutional:?Nausea?denies.?Vomiting?denies.?Hunger Thirst?denies.?Loss appetite?denies.?Chills?denies.?Fatigue?denies.?Fever?denies.?Night Sweats?denies.?Unexplained weight loss?denies.?Ophthalmologic:?Blurred vision?denies.?Red eye?denies.?HEENTM:?Dentures?denies.?Dizziness?denies.?Glasses/contacts?admits.?Retinopathy?de nies.?Blurred/double vision?denies.?TMJ?denies.?Discharge/drainage?denies.?Implants?admits.?Hard of hearing denies.?Difficulty chewing/swallowing/speaking?denies.?Nose bleeds?denies.?Sore mouth?denies.?Swollen glands?denies.?Respiratory:?On Oxygen?denies.?Pneumonia/pleurisy?denies.?Bronchitis?denies.?Emphysema?denies.?C oughing?denies.?Cough blood?denies.?Shortness of breath?denies.?Wheezing?denies.?Cardiovascular:?Pacemaker?denies.?MVP?denies.?WPW?denies.?CHF?denies.?Heart attack?denies.?Septal defect?denies.?Rapid beat?denies.?Chest pain ?denies.?Atrial Fib.?denies.?Murmur/Palpitations?denies.?Gastrointestinal:?Hemorrhoids?denies.?Stomach/Abdominal pain?denies.?Dark blood stool?denies.?Irritable bowel ?denies.?Constipation?denies.?Diarrhea?denies.?Vomiting?denies.?Hematology:?Swelling?denies.?Bruising?denies.?Bleeding problem?denies.?Genitourinary:?Blood urine?denies.?Frequent/Painfu/urination/bladder control?denies.?Kidney stones?denies.?Infection (UTI)?denies.?Nephropathy?denies.?Musculoskeletal:?Hammertoes?denies.?Bunions?denies.?Scoliosis/kyphosis?denies.?Muscle cramps / walking?admits.?Generalized aches and pains?denies.?Weakness?admits.?Integ.:?Roberts?denies.?Scars?denies.?Corns/calluses?denies.?Ingrown nails?denies.?Painful nails?denies.?Rashes?denies.?Neurologic:?Difficulty sleeping?denies.?Bipolar?denies.?Brain disorder?denies.?Balance trouble?admits.?Confusion?denies.?Fainting/blackouts?denies.?Headache?denies.?Tr emors?denies.? * Medical History:? * Surgical History:?spleen 196 spine rotater cuff ack wound ack surgery 07/2018suprapubic surgery 02/22/2019urology/implant sx 12/26/21spinal cord 05/05/22spinal cord 01/06/23 * Hospitalization/Major Diagno stic Procedure:?[facility] - Kidney Failure, had to be revived [facility] 03/2018[facility] collapsed at home 06/2018[facility] back sx 07/2018[facility]- Uti and 7 day stay, [facility] for 6 weeks 07/2019 * Family History:?Mother: dece ased, diagnosed with Unspecified cerebral artery occlusion with cerebral infarction.?Father: , diagnosed with Unspecified heart disease.?Daughter(s): alive.?Son(s): alive.?2 son(s) , 2 daughter(s) . .? * Social History:?Tobacco Use:?Tobacco Use/Smoking?Are you a:?nonsmoker ?Additional Findings: Tobacco Non-User?Current non-smoker ?Tobacco use other than smoking?Are you an other tobacco user??No ???Drugs/Alcohol:?Drugs?Have you used drugs other than those for medical reasons in the past 12 months??No ?Alcohol Screen?Did you have a drink containing alcohol in the past year??No ?Points?0 ?Interpretation?Negative ???Miscellaneous:?no Caffeine. ?Children: yes, 4. ?Exercise: yes, walking, weightlifting, PT. ?Marital status: . ?Occupation: retired. * Medications:?TakingExtra Dep th Diabetic Shoes with 3 Pair Custom heat-molded multi-density innersoles for 1 year Dx:clonazePAM Flomax Furosemide Lyrica 100 MG Capsule 1 capsule Orally Three a dayoxyCODONE HCl 20 MG Tablet 1 tablet as needed Orally three times a daySertraline HCl 25 MG Tablet 1 tablet Orally Once a daySoma 250 MG Tablet 1 tablet as needed Orally Four times a day, Notes: PRNTrulicity Extra Depth Orthopedic Shoes (1 Pair) with Customized Heat Molded Multidensity Innersoles (3 Pair) as directed Dx: NIDDM/Polyneuropathy (E11.42), Hammertoe Foot Deformity (M20.41,M20.42), Preulcerative Skin Lesion(s) (L85.1Taking Extra Depth Diabetic Shoes with 3 Pair Custom heat-molded multi-density innersoles for 1 year Dx:Taking clonazePAM Taking Flomax Taking Furosemide Taking Lyrica 100 MG Capsule 1 capsule Orally Three a dayTaking oxyCODONE HCl 20 MG Tablet 1 tablet as needed Orally three times a dayTaking Sertraline HCl 25 MG Tablet 1 tablet Orally Once a dayTaking Soma 250 MG Tablet 1 tablet as needed Orally Four times a day, Notes: PRNTaking Trulicity Taking Extra Depth Orthopedic Shoes (1 Pair) with Customized Heat Molded Multidensity Innersoles (3 Pair) as directed Dx: NIDDM/Polyneuropathy (E11.42), Hammertoe Foot Deformity (M20.41,M20.42), Preulcerative Skin Lesion(s) (L85.1Not- Taking/PRNExtra Depth Diabetic Shoes with 3 Pair Custom heat-molded multi-density innersoles for 1 year Dx:Antibiotic Extra Depth Diabetic Shoes with 3 Pair Custom heat-molded multi-density innersoles for 1 year Dx:Extra Depth Diabetic Shoes with 3 Pair Custom heat-molded multi-density innersoles for 1 year Dx:cloNIDine HCl Morphine Ativan , Notes: PRNCartia XT 240 MG Capsule Extended Release 24 Hour TK 1 C PO D Oral MS Contin Toujeo SoloStar , Notes: 70 units a dayInsulin Vitamin D Labetalol HCl clonazePAM 1 MG Tablet (Schedule IV Drug) TK 1 T PO BID Oral Morphine Sulfate ER 60 MG Tablet Extended Release (Schedule II Drug) TK 2 TS PO BID Oral Carisoprodol 350 MG Tablet (Schedule IV Drug) TK 1 T PO FIVE TIMES A DAY Oral Ergocalciferol 57308 UNIT Capsule 1 capsule Orally Once a dayAfrezza 8 (60)& 12 (30) UNIT Powder U TID UTD Inhalation Omeprazole 20 MG Capsule Delayed Release 2 capsules Orally Once a daySildenafil Citrate 100 MG Tablet 1 tablet as needed Orally Once a daymetFORMIN HCl 500 MG Tablet TK 2 TS PO BID Oral Spironolactone 25 MG Tablet TK 1 T PO D Oral Medication List reviewed and reconciled with the patientNot-Taking/PRN Extra Depth Diabetic Shoes with 3 Pair Custom heat-molded multi-density innersoles for 1 year Dx:Not-Taking/PRN Antibiotic Not-Taking/PRN Extra Depth Diabetic Shoes with 3 Pair Custom heat-molded multi-density innersoles for 1 year Dx:Not-Taking/PRN Extra Depth Diabetic Shoes with 3 Pair Custom heat-molded multi-density innersoles for 1 year Dx:Not-Taking/PRN cloNIDine HCl Not-Taking/PRN Morphine Not-Taking/PRN Ativan , Notes: PRNNot-Taking/PRN Cartia XT 240 MG Capsule Extended Release 24 Hour TK 1 C PO D Oral Not-Taking/PRN MS Contin Not-Taking/PRN Toujeo SoloStar , Notes: 70 units a dayNot-Taking/PRN Insulin Not-Taking/PRN Vitamin D Not-Taking/PRN Labetalol HCl Not-Taking/PRN clonazePAM 1 MG Tablet (Schedule IV Drug) TK 1 T PO BID Oral Not-Taking/PRN Morphine Sulfate ER 60 MG Tablet Extended Release (Schedule II Drug) TK 2 TS PO BID Oral Not-Taking/PRN Carisoprodol 350 MG Tablet (Schedule IV Drug) TK 1 T PO FIVE TIMES A DAY Oral Not-Taking/PRN Ergocalciferol 70093 UNIT Capsule 1 capsule Orally Once a dayNot-Taking/PRN Afrezza 8 (60)& 12 (30) UNIT Powder U TID UTD Inhalation Not-Taking/PRN Omeprazole 20 MG Capsule Delayed Release 2 capsules Orally Once a dayNot-Taking/PRN Sildenafil Citrate 100 MG Tablet 1 tablet as needed Orally Once a dayNot-Taking/PRN metFORMIN HCl 500 MG Tablet TK 2 TS PO BID Oral Not-Taking/PRN Spironolactone 25 MG Tablet TK 1 T PO D Oral Medication List reviewed and reconciled with the patient * Allergies:?N.K.D.A.yes[Aller gies Verified] Objective: * Vitals:?Ht: 5 ft 10 in, Wt:2 02, BMI:28.98, Shoe size:11, BP:118/60 mm Hg, BS:not taken. * ???Past Orders: ???Lab:HEMOGLOBIN A1C (GLYCO HEMOGLOBIN) (Order Date - 12/01/2023) (Collection Date - 11/26/2023) ? Value Reference Range ?HEMOGLOBIN A1C % (HH) 6.1 * Examination: ???Neurological: ?SENSORY:?Neurological exam demonstrates, reduced light touch sensation, reduced sharp/dull discrimination lower extremity, reduced vibration lower extremity left more advanced than right.?TINEL'S COMPRESSION:?Negative tarsal tunnel, samantha pedis, and medial calcaneal nerves B/L.?BABINSKI REFLEX:?absent.?Dermatologic: ?SKIN FINDINGS:? Skin exam reveals Keratotic lesion(s) located at, Plantar, T7, SUB MTH (s), 1, Right, Heel(s), Left.?Vascular: ?DP PULSES(B):?0/4, B/L.?PT PULSES(B):?0/4, B/L.?CAPILLARY FILL TIME:?3 secs. per digit, B/L.?TROPHIC CONDITION-TEXTURE/ELASTICITY/TURGOR/HAIR GROWTH(B):?normal, B/L.?TEMPERTURE GRADIENT(C):?warm to cool, proximal to distal, B/L.?PIGMENTATION:?normal, B/L.?EDEMA(C):? 1/4, Left, Ankle(s), Leg(s).?TELANGECTASIA:?absent.?VARICOSITIES:?absent.?Nails: ?NAILS are:?Elongated, overgrown, dystrophic, greater than 3mm thick, discolored and friable with crumbly malodorous subungual debris, with dull to no pain on palpation due to neuropathy, 1-5 B/L.?Neuroma Pain: ?PALPATION:?No interspace pain noted on palpation.?Orthopedic: ?FOOT MORPHOLOGY:? dropfoot charline left more advanced than right with flaccid left hallux and pf contracture left hallux ipj.?DIGITAL DEFORMITIES:? Digital contracture, PIPJ, 2-5 B/L, incompl- reducable to push-up test, no over, nor underlapping--right more severe than left.?Ophthalmology Referral: ?DIABETES EYE EXAM?General Examination: ?GENERAL APPEARANCE:?Reveals a pleasant, alert, well nourished, well developed, well hydrated individual, who demonstrates proper attention to hygene/body habitus, and is in no acute distress.?ORIENTED:?person, place, and time.?FOOT EXAM:? Assessment: * Assessment: 1.?Tinea unguium - B35.1 (Pr imary)?2.?Pain in right toe(s) - M79.674?3.?Type 1 diabetes mellitus with diabetic polyneuropathy - E10.42?4.?Pain in left toe(s) - M79.675?5.?Other hammer toe(s) (acquired), right foot - M20.41?6.?Other hammer toe(s) (acquired), left foot - M20.42?7.?Primary osteoarthritis, left ankle and foot - M19.072?8.?Primary osteoarthritis, right ankle and foot - M19.071?9.?Foot drop, right foot - M21.371?10.?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, bilateral legs - I70.203? Plan: * Treatment: * Procedures:?Debride Nail 6-10:?Nail debridement?Nail debridement performed extensively to reduce/remove overall nail length and girth, subungual debris, and necrotic tissue, by manual and electrical means with use of a nail nipper and/or dremel, to more viable healthy nail plate or bed tissue 6-10. Silver nitrate used for any petechial bleeding as necessary. Patient chooses, no pharmaceutical tx (07368).?Keratoma Treatment:?Parring or Cutting of Benign Hyperkeratotic Lesion(s)?05233 (2-4 Lesions) - The Benign hyperkeratotic lesions, as described above were pared, and/or cut utilizing a sterile #15 blade, tissue nippers, and/or dremel.? * Procedure Codes:?95460 DEBRI DE NAIL, 6 OR MORE, Modifiers: XS 09683 TRIM SKIN LESIONS, 2 TO 4, Modifiers: XS * Follow Up:?3 Months * Images: * Sign off status: Completed true * Provider:?James Brooks DPM Date:? 024 Generated for Demian august/Cordell/eTransmitting on:?10/30/2024 06:32 AM EST History and Physical Notes * HPI (History of Present Illness) Category Sub-Category Detail Notes Category Not es Painful Nails Misc: recent hospitali zation at [facility] 11/11/[address] Campos --14th spinal sx; pt will have another sx on 06/05/24 Pt States Last PCP Visit: Date:: 11/26/2023 Examination Category Sub-Category Detail Notes Category Not es Neuroma Pain PALPATION: No interspace pain noted on palpation Neurological SENSORY: Neurological exa m demonstrates, reduced light touch sensation, reduced sharp/dull discrimination lower extremity, reduced vibration lower extremity left more advanced than right BABINSKI REFLEX: absent TINEL'S COMPRESSION: Negative tarsal yoanna gomez, samantha pedis, and medial calcaneal nerves B/L Dermatologic SKIN FINDINGS: Skin exam reveal s Keratotic lesion(s) located at, Plantar, T7, SUB MTH (s), 1, Right, Heel(s), Left Orthopedic FOOT MORPHOLOGY: dropfoot charline le ft more advanced than right with flaccid left hallux and pf contracture left hallux ipj DIGITAL DEFORMITIES: Digital contracture , PIPJ, 2-5 B/L, incompl-reducable to push-up test, no over, nor underlapping--right more severe than left General Examination GENERAL APPEARANCE: Reveals a pleasant, alert, well nourished, well developed, well hydrated individual, who demonstrates proper attention to hygene/body habitus, and is in no acute distress FOOT EXAM: Lower Extremity Neurological Exa m performed:: Yes Visual exam of foot performed:: Yes Date: 05/24/2024 Sensory testing performed:: sensations d iminished Pedal pulse taking performed:: 1+ ORIENTED: person, place, and t marianne Ophthalmology Referral DIABETES EYE EXAM Diabeti c Retinopathy Screening:: Yes 04/13/2022 Vascular DP PULSES (B): 0/4, B/L PT PULSES (B): 0/4, B/L CAPILLARY FILL TIME: 3 secs. per digit, B/L TEMPERTURE GRADIENT (C): warm to cool, p roximal to distal, B/L TROPHIC CONDITION-TEXTURE/ELASTICITY/TURGOR/HAIR GROWTH (B): normal, B/L EDEMA (C): 1/4, Left, Ankle(s), Leg(s) TELANGECTASIA: absent VARICOSITIES: absent PIGMENTATION: normal, B/L Nails NAILS are: Elongated, overg rown, dystrophic, greater than 3mm thick, discolored and friable with crumbly malodorous subungual debris, with dull to no pain on palpation due to neuropathy, 1-5 B/L
--- OUTSIDE RECORDS SUMMARY | 2024-10-30 06:32 | XMS_ITS | Patient Health Record ---
Author Organization Vega Ricks MD Address [address] [place] [address] Care Team Providers Care Sugar House Supervisor Name Role Phone Katheryn Oliver MD Primary Care Provider Unavailable Vega Ricks Unavailable [phone] REASON FOR REFERRAL No Information MEDICATIONS Medication [...] overlapping lesion of connective and soft tissue (204077527) Problem Cervical spondylosis (M47.812) Active confirmed Cervical spondylosis (508883017) Problem Lumbar spondylosis (M47.816) Active confirmed [id number] Problem Thoracic spondylosis (M47.814) Active confirmed Thoracic spondylosis (115417225) Problem 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) Active confirmed [id number] Problem 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) Active confirmed 5334987 Problem 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) Active confirmed 407893645 Problem Flat back syndrome (M40.30) Active confirmed PLAN OF TREATMENT Pending Test Test Name Order Date MRI : Cervical Spines 01/20/2022 MRI : Cervical Spines 03/19/2021 MRI : Cervical Spines 07/24/2021 MRI : [...] BLOOD COUNT W PLT - CBC 020 CBC WITH AUTO-DIFF - CBCAD 08/14/2020 CBC WITH AUTO-DIFF - CBCAD 02/10/2022 CBC WITH AUTO-DIFF - CBCAD 04/28/2022 CBC WITH AUTO-DIFF - CBCAD 05/07/2022 CBC WITH AUTO-DIFF - CBCAD 06/12/2020 CBC WITH AUTO-DIFF - CBCAD 01/26/2022 SEDIMENTATION RATE - ESR 08/15/2020 PROTIME - PT 08/16/2020 PROTIME - PT 08/14/2020 PROTIME - PT 08/15/2020 PROTIME - PT 2020 PROTIME - PT 08/09/2020 PROTIME - PT 08/10/2020 PROTIME - PT 08/11/2020 PROTIME - PT 08/12/2020 PARTIAL THROMBOPLASTIN TIME - PTT 2019 CMP 01/26/2022 CMP 02/10/2022 ELECTROLYTES - LYTES 08/12/2020 PASU PANEL - PASU PANEL 06/12/2020 PASU PANEL - PASU PANEL 04/28/2022 PASU PANEL - PASU PANEL 08/06/2022 PASU PANEL - PASU PANEL 07/26/2020 PASU PANEL - PASU PANEL 11/21/2020 BASIC METABOLIC PANEL - BMP 2020 BASIC METABOLIC PANEL - BMP 08/16/2020 BASIC METABOLIC PANEL - BMP 05/07/2022 BASIC METABOLIC PANEL - BMP 08/10/2020 BASIC METABOLIC PANEL - BMP 07/07/2018 SODIUM - NA 08/09/2020 SODIUM - NA 08/08/2020 SODIUM - NA 05/06/2022 SODIUM - NA 12/02/2020 SODIUM - NA 11/28/2020 SODIUM - NA 11/30/2020 POTASSIUM - K 11/30/2020 POTASSIUM - K 11/28/2020 POTASSIUM - K 12/02/2020 POTASSIUM - K 05/06/2022 POTASSIUM - K 05/06/2022 POTASSIUM - K 08/08/2020 POTASSIUM - K 08/08/2020 POTASSIUM - K 08/09/2020 GLUCOSE - GLU 08/08/2020 BUN - BUN 08/08/2020 BUN - BUN 08/09/2020 BUN - BUN 08/12/2020 BUN - BUN 05/06/2022 BUN - BUN 12/02/2020 BUN - BUN 02/10/2022 BUN - BUN 11/28/2020 CREATININE - CR 11/28/2020 CREATININE - CR 11/30/2020 CREATININE - CR 02/10/2022 CREATININE - CR 12/02/2020 CREATININE - CR 12/01/2020 CREATININE - CR 05/06/2022 CREATININE - CR 08/12/2020 CREATININE - CR 08/09/2020 CREATININE - CR 08/08/2020 CALCIUM - CA 08/09/2020 MAGNESIUM - MG 08/09/2020 MAGNESIUM - MG 08/10/2020 MAGNESIUM - MG 08/12/2020 MAGNESIUM - MG 08/08/2020 MAGNESIUM - MG 05/06/2022 MAGNESIUM - MG 05/07/2022 MAGNESIUM - MG 12/02/2020 MAGNESIUM - MG 11/30/2020 MAGNESIUM - MG 11/29/2020 MAGNESIUM - MG 11/28/2020 MAGNESIUM - MG 08/16/2020 MAGNESIUM - MG 2020 MAGNESIUM - MG 08/14/2020 PHOSPHORUS\,INORGANIC - IP 12/02/2020 HEPATIC PANEL - LFT 07/26/2020 HEPATIC PANEL - LFT 2020 HEPATIC PANEL - LFT 11/21/2020 HEPATIC PANEL - LFT 08/09/2020 ALBUMIN - ALB 08/10/2020 ALBUMIN - ALB 08/12/2020 CREATINE PHOSPHOKINASE - CPK 2020 CREATINE PHOSPHOKINASE - CPK 08/15/2020 URINALYSIS - UA 06/12/2020 URINALYSIS - UA 08/10/2020 URINE SEDIMENT - KUAM 08/10/2020 URINE SEDIMENT - KUAM 06/12/2020 C-REACTIVE PROTEIN - CRPR 08/15/2020 GRAM STAIN - KGST 08/08/2020 GRAM STAIN - KGST 08/08/2020 GRAM STAIN - KGST 2020 BLOOD CULTURE - KBC 08/10/2020 BLOOD CULTURE - [facility] 08/10/2020 RED BLOOD CELLS 11/28/2020 GLYCOHGB 11/21/2020 GLYCOHGB 07/26/2020 GLYCOHGB 08/06/2022 GLYCOHGB 04/28/2022 GLYCOHGB 08/09/2020 GLYCOHGB 06/12/2020 BBK SPECIMEN 11/28/2020 BEDSIDE GLUCOSE 11/28/2020 BEDSIDE GLUCOSE 11/28/2020 BEDSIDE GLUCOSE 08/16/2020 BEDSIDE GLUCOSE 08/16/2020 BEDSIDE GLUCOSE 12/02/2020 BEDSIDE GLUCOSE 11/30/2020 BEDSIDE GLUCOSE 11/30/2020 BEDSIDE GLUCOSE 11/30/2020 BEDSIDE GLUCOSE 11/30/2020 BEDSIDE GLUCOSE 11/29/2020 BEDSIDE GLUCOSE 11/29/2020 BEDSIDE GLUCOSE 11/29/2020 BEDSIDE GLUCOSE 11/29/2020 BEDSIDE GLUCOSE 11/29/2020 BEDSIDE GLUCOSE 08/15/2020 BEDSIDE GLUCOSE 08/15/2020 BEDSIDE GLUCOSE 08/15/2020 BEDSIDE GLUCOSE 2020 BEDSIDE GLUCOSE 2020 BEDSIDE GLUCOSE 2020 BEDSIDE GLUCOSE 2020 BEDSIDE GLUCOSE 2020 BEDSIDE GLUCOSE 2020 BEDSIDE GLUCOSE 08/15/2020 BEDSIDE GLUCOSE 08/14/2020 BEDSIDE GLUCOSE 08/14/2020 BEDSIDE GLUCOSE 08/14/2020 BEDSIDE GLUCOSE 08/14/2020 BEDSIDE GLUCOSE 05/06/2022 BEDSIDE GLUCOSE 05/05/2022 BEDSIDE GLUCOSE 12/02/2020 BEDSIDE GLUCOSE 12/01/2020 BEDSIDE GLUCOSE 12/01/2020 BEDSIDE GLUCOSE 12/01/2020 BEDSIDE GLUCOSE 12/01/2020 BEDSIDE GLUCOSE 05/07/2022 BEDSIDE GLUCOSE 05/07/2022 BEDSIDE GLUCOSE 05/07/2022 BEDSIDE GLUCOSE 05/06/2022 BEDSIDE GLUCOSE 05/06/2022 BEDSIDE GLUCOSE 05/06/2022 BEDSIDE GLUCOSE 05/05/2022 BEDSIDE GLUCOSE 05/05/2022 BEDSIDE GLUCOSE 05/05/2022 BEDSIDE GLUCOSE 07/08/2018 BEDSIDE GLUCOSE 07/08/2018 BEDSIDE GLUCOSE 07/08/2018 BEDSIDE GLUCOSE 07/07/2018 BEDSIDE GLUCOSE 07/07/2018 BEDSIDE GLUCOSE 07/07/2018 BEDSIDE GLUCOSE 07/07/2018 BEDSIDE GLUCOSE 08/09/2020 BEDSIDE GLUCOSE 08/09/2020 BEDSIDE GLUCOSE 08/09/2020 BEDSIDE GLUCOSE 08/08/2020 BEDSIDE GLUCOSE 08/08/2020 BEDSIDE GLUCOSE 08/10/2020 BEDSIDE GLUCOSE 08/10/2020 BEDSIDE GLUCOSE 08/10/2020 BEDSIDE GLUCOSE 08/10/2020 BEDSIDE GLUCOSE 08/09/2020 BEDSIDE GLUCOSE 08/12/2020 BEDSIDE GLUCOSE 08/12/2020 BEDSIDE GLUCOSE 08/12/2020 BEDSIDE GLUCOSE 08/12/2020 BEDSIDE GLUCOSE 08/11/2020 BEDSIDE GLUCOSE 08/11/2020 BEDSIDE GLUCOSE 08/11/2020 BEDSIDE GLUCOSE 08/11/2020 BEDSIDE GLUCOSE 07/06/2018 MANUAL DIFF 06/12/2020 MANUAL DIFF 05/06/2022 MRSA/MSSA PCR 08/06/2022 MRSA/MSSA PCR 07/26/2020 MRSA/MSSA PCR 04/28/2022 MRSA/MSSA PCR 11/21/2020 MRSA/MSSA PCR 06/12/2020 MRSA/MSSA PCR 07/06/2018 CT Scan : Cervical Spine 10/12/2022 TS Automated 08/08/2020 TS Automated 11/28/2020 TS Automated 05/05/2022 BMPGFR 11/29/2020 BMPGFR 08/14/2020 BMPGFR 08/15/2020 BMPGFR 08/11/2020 XM 08/08/2020 XM 11/28/2020 TSAPASU 11/21/2020 TSAPASU 08/06/2022 TSAPASU 07/26/2020 TSAPASU 04/28/2022 TSAPASU 06/12/2020 KORT 08/08/2020 KORT 08/08/2020 KORT 2020 KANASTER 2020 KANASTER 08/08/2020 KANASTER 08/08/2020 CERVICAL SPINE 2-3 VIEWS 05/06/2022 PORTABLE CHEST ONE VIEW 08/15/2020 PORTABLE CHEST ONE VIEW 08/15/2020 LUMBAR SPINE 2-3 VIEWS 02/26/2021 MRI SPINE-LUMBAR W _ WO GADO 08/09/2020 MRI SPINE-LUMBAR 02/10/2022 CT CERVICAL SPINE WO CONTRAST 05/22/2022 FLUORO C ARM OR 05/05/2022 FLUORO C ARM OR 11/28/2020 FLUORO C ARM OR 08/08/2020 MRI SPINE,CERVICAL 02/10/2022 DIFFA5 07/26/2020 DIFFA5 11/21/2020 AOT 05/06/2022 AOT 05/06/2022 AOT 12/02/2020 AOT 08/08/2020 AOT 08/09/2020 AOT 08/11/2020 SURG 05/05/2022 SURG 11/28/2020 [id number] 11/28/2020 XR SHOULDER RIGHT 3 VIEWS 05/22/2022 RAPID COVID-19 05/03/2022 RAPID COVID-19 12/01/2020 RAPID COVID-19 08/15/2020 RAPID COVID-19 08/06/2020 Insurance Providers Payer Name Payer Address Payer Phone Subscriber Number Group Number Insured Name Patient Relationship to Insured Coverage Start Date Coverage End Date MEDICARE [address] [place] [address] [phone] [id number] Aleksandr Perez Self - patient is the insured Medicare Advantage through [facility] [id number] Aleksandr Perez Self - patient is the insured [facility] [id number] Aleksandr Perez Self - patient is the insured
--- OUTSIDE RECORDS SUMMARY | 2024-10-30 06:32 | XMS_ITS | Encounter Summary ---
Author Organization [facility], Address [address] [place] [address] Phone Care Team Providers Care Cloth Printing Back Tender Name Role Phone Maico Garcia Primary Care Provider [phone] Encounter Details Date Type Department Care Team (Late st Contact Info) Description 10/01/2022 Office Communication [facility], [address] [phone] Jose M Martinez MD [address] [place] [address] Social History Tobacco Use Types Packs/Day Years Used Date Smoking Tobacco: Never Alcohol Use Standard Drinks/Week Comments Yes 0 (1 standard drink = 0.6 oz pure alcohol) Alcoholic Drinks/day: Occasional social drink Sex and Gender Information Value Date Recorded Sex Assigned at Not on file Legal Sex Male 4:45 PM EST Gender Identity Not on file Sexual Orientation Not on file COVID-19 Exposure Response Date Recorded In the last 10 days, have yo u been in contact with someone who was confirmed or suspected to have Coronavirus/COVID-19? No / Unsure 10/01/2022 3:12 PM EST documented as of this encounter Miscellaneous Notes * Telephone Encounter - Marla Peters - 10/02/2022 8:34 AM EST Faxed to [phone] documented in this encounter Plan of Treatment Not on file documented as of this encounter Visit Diagnoses Not on filedocumented in this encounter Care Teams Cloth Printing Back Tender Relationship Specialty Start Date End Date Maico Garcia PA [address] [place] [id number] PCP - General Physician Product Designer 08/03/22 documented as of this encounter
--- OUTSIDE RECORDS SUMMARY | 2024-10-30 06:33 | XMS_ITS | Clinical Summary ---
Author Organization [facility] Address [address] [place] [address] Phone Care Team Providers Care Registered Massage Therapist Name Role Phone Physician, No Pcp Primary Care Provider Unavaila ble Allergies No known active allergies Medications carisoprodoL (SOMA) 350 mg tablet Take 1 tablet (350 mg total) by mouth 2 (two) times a day if needed for muscle spasms. Active Lactobacillus acidophilus 25 million cell capsule Take 1 capsule by mouth 1 (one) time each day. Active melatonin 3 mg tablet Take 2 tablets (6 mg total) by mouth once daily as needed. 06/11/2024 Active pregabalin (LYRICA) 100 mg capsule Take 1 capsule (100 mg total) by mouth 3 times daily. Active traZODone (DESYREL) 50 mg tablet Take 1 tablet (50 mg total) by mouth daily. 09/13/2023 Active omeprazole (PriLOSEC) [address] capsule Take 1 capsule (20 mg total) by mouth daily. 05/01/2021 Active atorvastatin (LIPITOR) 40 mg tablet Take 1 tablet (40 mg total) by mouth at bedtime. 08/02/2024 11/27/20 25 Active clonazePAM (KlonoPIN) 0.5 mg tabletIndication s:anxiety Take 1 tablet (0.5 mg total) by mouth 2 (two) times a day if needed for anxiety. Max Daily Amount: 1 mg 0 08/02/2024 Active lisinopriL (PRINIVIL,ZESTRI L) 20 mg tablet Take 1 tablet (20 mg total) by mouth 1 (one) time each day. Active dulaglutide (Trulicity) 0.75 mg/0.5 mL pen injector injection Inject 0.5 mL (0.75 mg total) under the skin every 7 (seven) days. Active aspirin 81 mg EC tablet Take 1 tablet (81 mg total) by mouth 1 (one) time each day. 08/10/2024 08/10/20 25 Active metoprolol succinate (TOPROL-XL) 25 mg 24 hr tablet Take 1 tablet (25 mg total) by mouth 1 (one) time each day. Do not crush or chew. 08/10/2024 08/10/20 25 Active Active Problems Problem Noted Date Diagnosed Date NSTEMI (non-ST elevated myocardial infarction) 1 10/10/2023 Troponin I above reference range 08/06/2024 Spinal stenosis of lumbar region 07/21/2024 T2DM (type 2 diabetes mellitus) 07/21/2024 Essential hypertension 07/21/2024 Benign prostatic hyperplasia 07/21/2024 Anxiety disorder 07/21/2024 Depression 07/21/2024 GERD (gastroesophageal reflux disease) Peripheral vascular disease 07/21/2024 Stage 3b chronic kidney disease (CKD) 07/21/2024 Resolved Problems Problem Noted Date Diagnosed Date Resolved Date Sepsis 08/06/2024 08/09/2024 Osteomyelitis 07/25/2024 08/02/2024 Encounters Date Type Department Care Team Description 08/15/2024 Telephone Orthopedic Surgery - [place] [address] [address] Neftali Laguerre DPM order 08/06/2024 1:29 PM EST - 08/10/2024 7:35 PM EST Hospital Encounter [facility] [address] [place] [address] Roland Kauffman MD Jones, Christopher, MD Zipagan, James T, MD Kulkarni, John A, MD Hypoxia (Primary Dx); Troponin I above reference range; SIRS (systemic inflammatory response syndrome) (CMS/HCC); Troponin level elevated; Bilateral lower extremity edema; Sepsis (CMS/HCC) Discharge Disposition: Care Home Facility 07/25/2024 5:34 PM EST - 08/02/2024 3:39 PM EST Hospital Encounter [facility] [address] [place] [address] Roland Kauffman MD Ishtiaq, Rizwan, MD Rasul, Yar M, MD Osteomyelitis of great toe of left foot (CMS/HCC) (Primary Dx); Osteomyelitis of foot, left, acute (CMS/HCC); Osteomyelitis (CMS/HCC) Discharge Disposition: Care Home Facility from Last 3 Months Surgical History Surgery Date Site/Laterality Comments OTHER SURGICAL HISTORY PROCEDURE:SPLENECTOMY BACK SURGERY PROCEDURE:BACK SURGERY, 16 back surgeries APPENDECTOMY CHOLECYSTECTOMY ROTATOR CUFF REPAIR Bilateral TOE AMPUTATION Left left hallux Medical History Medical History Date Comments GERD (gastroesophageal reflux disease) DX:GERD (gastroesophageal reflux disease) Hypertension DX:Hypertension Anxiety DX:Anxiety Depression DX:Depression Diabetes mellitus (CMS/HCC) DX:D iabetes mellitus ([facility]) Chronic kidney disease BPH (benign prostatic hyperplasia) Peripheral vascular disease (CMS/HCC) GERD (gastroesophageal reflux disease) Diabetes, polyneuropathy ([facility]/HCC) Spinal stenosis Neurogenic bladder Family History Medical History Relation Name Comments Heart attack Father Stroke Mother Relation Name Status Comments Father Mother Social History Tobacco Use Types Packs/Day Years Used Date Smoking Tobacco: Never Smokeless Tobacco: Never Alcohol Use Standard Drinks/Week Comments Not Currently 0 (1 standard drink = 0.6 oz pur e alcohol) Housing Instability Answer Date Recorde d Are you worried that in the next 2 months you may not have stable housing? Yes 07/27/2024 Food Access & Nutrition Answer Date Rec orded Do you have access to a vari ety of food including fruits and vegetables? Yes 07/27/2024 Access to Healthcare Answer Date Record ed Within the last 3 months, henry w many times did you visit the emergency department for your medical care? 1 07/27/2024 Health Literacy Answer Date Recorded How often do you need to hav e someone help you when you read instructions, pamphlets, or other written material from your doctor or pharmacy? Patient declined 07/27/2024 Caregiver: How often do you need to have someone help you when you read instructions, pamphlets, or other written material from your doctor or pharmacy? Not on file 024 Financial Risk Answer Date Recorded How hard is it for you to pa y for the very basics like food, housing, medical care, and air conditioning / heating? Somewhat hard 07/27/2024 Transportation Answer Date Recorded Has the lack of transportati on kept you from meetings, work, or from getting things needed for daily living? No Has the lack of transportati on kept you from medical appointments or from getting medications? No 07/27/2024 Social Isolation Answer Date Recorded How often do you feel lonely or isolated from those around you? Patient declined 07/27/2024 Food Risk Answer Date Recorded Within the past 12 months we worried whether our food would run out before we got money to buy more. Patient declined 024 Within the past 12 months th e food we bought just didn't last and we didn't have money to get more. Patient declined 07/08 Dependent Care Answer Date Recorded Do you need help finding or paying for care for your loved ones. For example, child welfare social worker or elderly care for an older adult? Patient declined 07/27/2024 Education Answer Date Recorded Do you think completing more education or training, like finishing a GED, going to college, or learning a trade, would be helpful for you? Patient declined 07/27/2024 Employment and Income Answer Date Recor ded During the last four weeks, have you been actively looking for work? Patient declined 07/27/2024 Living Situation Answer Date Recorded What is your living situation? 1 09/26/2023 Interpersonal Safety Answer Date Record ed Physical Abuse 08/07/2024 Verbal Abuse 08/07/2024 Sex and Gender Information Value Date Recorded Sex Assigned at Male 07/25/2024 11:57 PM EST Legal Sex Male 7:14 PM EST Gender Identity Male 07/25/2024 11:57 PM EST Sexual Orientation Straight 07/25/2024 11 :57 PM EST Obstetrics History Last Filed Vital Signs Vital Sign Reading Time Taken Comments Blood Pressure 157/79 08/10/2024 3:02 PM EST Pulse 68 08/10/2024 3:02 PM EST Temperature 36.8 ??C (98.2 ??F) 08/10/2024 3:02 PM ES T Respiratory Rate 15 08/10/2024 3:02 PM EST Oxygen Saturation 97% 08/10/2024 3:02 PM EST Inhaled Oxygen Concentration - - Weight 106 kg (233 lb 6.4 oz) 08/07/2024 10:43 A M EST Height 177.8 cm (5' 10 ) 08/07/2024 10:43 AM EST Body Mass Index 33.49 08/07/2024 10:43 AM EST Plan of Treatment Health Maintenance Due Date Last Done Comments HIB Vaccines (1 of 1 - Risk 1-dose series) [birth year]11/1951 Meningococcal ACWY Vaccine (1 - Risk 2-dose series) 1954 Diabetes: Annual Retina Eye Exam 1962 Meningococcal B Vacine (1 of 5 - Increased Risk) 1962 Zoster Vaccines (1 of 2) 2002 RSV Immunization Patients 60+ Years Old (1 - Risk 60-74 years 1-dose series) 2012 Cholesterol Screening (Lipid Panel) 08/08/2022 06/05/1999 Colorectal Cancer Screening: Colonoscopy 08/08/2022 Depression Screening 08/08/2022 Hepatitis C Screening 08/08/2022 Medicare Annual Wellness Visit 08/08/2022 COVID-19 Vaccine ( season) 2024 06/24/2022, 07/23/2021, 10/22/2020, Additional history exists Diabetes: Annual Urine Albumin-Creatinine Ratio (uACR) 07/21/2024 Diabetes: Blood Sugar Control Test (HGBA1C) 01/23/2025 07/26/2024, 08/06/2022 Social Influencers of Health Screening 07/27/2025 07/27/2024 Diabetes: Annual Foot Exam 08/07/2025 08/07/2024, Diabetes: Annual GFR (Glomerular Filtration Rate) 08/10/2025 08/10/2024, 08/09/2024, 08/08/2024, Additional history exists Falls Risk Assessment 08/10/2025 08/10/2024 Hypertension/CHF/CAD Annual BMP Blood Test 08/10/2025 08/10/2024, 08/09/2024, 08/08/2024, Additional history exists DTaP,Tdap,and Td Vaccines (2 - Td or Tdap) 03/31/2033 03/31/2023 Pneumococcal Vaccine: 50+ Years Completed 04/20/2022, 07/14/2018 Influenza Vaccine Completed 05/12/2024, , 06/28/2021, Additional history exists HPV Vaccines Aged Out No longer eligi ble based on patient's age to complete this topic Hepatitis A Vaccines Aged Out No long er eligible based on patient's age to complete this topic Hepatitis B Vaccines Aged Out No long er eligible based on patient's age to complete this topic IPV Vaccines Aged Out No longer eligi ble based on patient's age to complete this topic MMR Vaccines Aged Out No longer eligi ble based on patient's age to complete this topic RSV Immunization Patients Under 20 months Aged Out No longer eligible based on patient's age to complete this topic Varicella Vaccines Aged Out No longer eligible based on patient's age to complete this topic Procedures Procedure Name Priority Date/Time Associated Diagnosis Comments POCT GLUCOSE BLOOD Routine 08/10/2024 10 :59 AM EST POCT GLUCOSE BLOOD Routine 08/10/2024 8: 28 AM EST CBC WITH AUTO DIFFERENTIAL Routine 08/10/2024 6:39 AM EST BASIC METABOLIC PANEL Routine 08/10/2024 6:39 AM EST CBC AND DIFFERENTIAL Routine 08/10/2024 6:39 AM EST POCT GLUCOSE BLOOD Routine 08/10/2024 3: 54 AM EST POCT GLUCOSE BLOOD Routine 08/09/2024 9: 38 PM EST POCT GLUCOSE BLOOD Routine 08/09/2024 11 :16 AM EST NM TUMOR LOCALIZATION WHOLE BODY 1 DAY Routine 08/09/2024 10:06 AM EST POCT GLUCOSE BLOOD Routine 08/09/2024 8: 13 AM EST MAGNESIUM Add-On 08/09/2024 6:17 AM EST PROCALCITONIN Add-On 08/09/2024 6:17 AM EST SEDIMENTATION RATE Add-On 08/09/2024 6: 17 AM EST C-REACTIVE PROTEIN Add-On 08/09/2024 6: 17 AM EST CBC WITH AUTO DIFFERENTIAL Routine 08/09/2024 6:17 AM EST BASIC METABOLIC PANEL Routine 08/09/2024 6:17 AM EST CBC AND DIFFERENTIAL Routine 08/09/2024 6:17 AM EST POCT GLUCOSE BLOOD Routine 08/08/2024 8: 08 PM EST POCT GLUCOSE BLOOD Routine 08/08/2024 4: 21 PM EST POCT GLUCOSE BLOOD Routine 08/08/2024 11 :04 AM EST POCT GLUCOSE BLOOD Routine 08/08/2024 8: 10 AM EST CBC WITH AUTO DIFFERENTIAL Routine 08/08/2024 6:38 AM EST BASIC METABOLIC PANEL Routine 08/08/2024 6:38 AM EST CBC AND DIFFERENTIAL Routine 08/08/2024 6:38 AM EST RESPIRATORY VIRUS PANEL MOLECULAR STUDY Routine 08/08/2024 2:57 AM EST POCT GLUCOSE BLOOD Routine 08/07/2024 8: 23 PM EST POCT GLUCOSE BLOOD Routine 08/07/2024 4: 37 PM EST POCT GLUCOSE BLOOD Routine 08/07/2024 12 :02 PM EST TRANSTHORACIC ECHOCARDIOGRAM (TTE) COMPLETE W/ CONTRAST Routine 08/07/2024 10:43 AM EST Troponin I above reference range POCT GLUCOSE BLOOD Routine 08/07/2024 8: 23 AM EST MANUAL DIFFERENTIAL - SYSMEX WAM Routine 08/07/2024 5:52 AM EST CREATINE KINASE Add-On 08/07/2024 5:52 AM EST CBC WITH AUTO DIFFERENTIAL Routine 08/07/2024 5:52 AM EST PHOSPHORUS Routine 08/07/2024 5:52 AM EST TROPONIN I HIGH SENSITIVITY Routine 08/07/2024 5:52 AM EST C-REACTIVE PROTEIN Routine 08/07/2024 5: 52 AM EST SEDIMENTATION RATE Routine 08/07/2024 5: 52 AM EST CBC AND DIFFERENTIAL Routine 08/07/2024 5:52 AM EST BASIC METABOLIC PANEL Routine 08/07/2024 5:52 AM EST VAS US DUPLEX LOWER EXT VENOUS BILAT STAT 08/07/2024 1:02 AM EST Bilateral lower extremity edema POCT GLUCOSE BLOOD Routine 08/06/2024 11 :13 PM EST XR FOOT 3+ VIEWS LEFT STAT 08/06/2024 8:12 PM EST TROPONIN I HIGH SENSITIVITY STAT 08/06/2024 6:48 PM EST BROOKE URINE CULTURE TUBE STAT 08/06/20 24 6:01 PM EST URINALYSIS WITH REFLEX MICROSCOPIC AND CULTURE STAT 08/06/2024 6:01 PM EST URINALYSIS WITH REFLEX MICROSCOPIC AND CULTURE STAT 08/06/2024 6:01 PM EST CULTURE URINE STAT 08/06/2024 6:01 PM EST HEPARIN ANTI XA STAT 08/06/2024 5:40 PM EST ACTIVATED PARTIAL THROMBOPLASTIN TIME STAT 08/06/2024 5:40 PM EST PROTHROMBIN TIME WITH INR STAT 08/06/2024 5:[address] ANGIO CHEST WO AND/OR W CONTRAST STAT 08/06/2024 5:15 PM EST Hypoxia RAPID [id number] SCREENING, MOLECULAR STAT 08/06/2024 4:45 PM EST D-DIMER STAT 08/06/2024 4:03 PM EST TROPONIN I HIGH SENSITIVITY STAT 08/06/2024 4:03 PM EST ECG 12-LEAD STAT 08/06/2024 3:33 PM EST CULTURE BLOOD STAT 08/06/2024 3:30 PM EST CULTURE BLOOD STAT 08/06/2024 3:10 PM EST MANUAL DIFFERENTIAL - SYSMEX WAM STAT 08/06/2024 2:48 PM EST PROCALCITONIN Add-On 08/06/2024 2:48 PM EST TROPONIN I HIGH SENSITIVITY STAT 08/06/2024 2:48 PM EST C-REACTIVE PROTEIN STAT 08/06/2024 2: 48 PM EST SEDIMENTATION RATE STAT 08/06/2024 2: 48 PM EST CBC WITH AUTO DIFFERENTIAL STAT 08/06/2024 2:48 PM EST CBC AND DIFFERENTIAL STAT 08/06/2024 2:48 PM EST COMPREHENSIVE METABOLIC PANEL STAT 08/06/2024 2:48 PM EST LACTATE, WITH REFLEX STAT 08/06/2024 2:48 PM EST POCT GLUCOSE BLOOD Routine 08/06/2024 1: 31 PM EST INSERT MIDLINE Routine 08/02/2024 2:19 PM EST POCT GLUCOSE BLOOD Routine 08/02/2024 11 :02 AM EST POCT GLUCOSE BLOOD Routine 08/02/2024 7: 50 AM EST POCT GLUCOSE BLOOD Routine 08/01/2024 8: 58 PM EST POCT GLUCOSE BLOOD Routine 08/01/2024 4: 18 PM EST POCT GLUCOSE BLOOD Routine 08/01/2024 11 :19 AM EST POCT GLUCOSE BLOOD Routine 08/01/2024 8: 12 AM EST CBC WITH AUTO DIFFERENTIAL Routine 08/01/2024 6:28 AM EST BASIC METABOLIC PANEL Routine 08/01/2024 6:28 AM EST CBC AND DIFFERENTIAL Routine 08/01/2024 6:28 AM EST POCT GLUCOSE BLOOD Routine 07/31/2024 9: 09 PM EST POCT GLUCOSE BLOOD Routine 07/31/2024 4: 30 PM EST POCT GLUCOSE BLOOD Routine 07/31/2024 11 :19 AM EST POCT GLUCOSE BLOOD Routine 07/31/2024 8: 16 AM EST CBC WITH AUTO DIFFERENTIAL Routine 07/31/2024 6:44 AM EST BASIC METABOLIC PANEL Routine 07/31/2024 6:44 AM EST CBC AND DIFFERENTIAL Routine 07/31/2024 6:44 AM EST POCT GLUCOSE BLOOD Routine 07/30/2024 7: 56 PM EST POCT GLUCOSE BLOOD Routine 07/30/2024 4: 43 PM EST TRANSFUSE RED BLOOD CELLS Routine 07/30/2024 1:08 PM EST POCT GLUCOSE BLOOD Routine 07/30/2024 11 :18 AM EST TYPE AND SCREEN Routine 07/30/2024 10:58 AM EST PREPARE RBC Routine 07/30/2024 9:23 AM EST POCT GLUCOSE BLOOD Routine 07/30/2024 7: 43 AM EST CBC WITH AUTO DIFFERENTIAL Routine 07/30/2024 5:58 AM EST BASIC METABOLIC PANEL Routine 07/30/2024 5:58 AM EST CBC AND DIFFERENTIAL Routine 07/30/2024 5:58 AM EST HEMOGLOBIN A1C Add-On 07/26/2024 5:37 AM EST LIPID PANEL Routine 06/05/1999 from Last 3 Months or Most Recently Relevant to Health Maintenance Results * POCT Glucose, blood (08/10/2024 10:59 AM EST) Only the most recent of30 resultswithin the time period is included. [facility] Glucose POCT 92 70 - 100 mg/dL 08/10/2024 11:00 AM EST [facility] Blood Capillary blood specimen / Unknown 08/10/2024 10:59 AM EST 08/10/2024 11:01 AM EST John Kulkarni MD LAB POINT OF CARE TE ST DOCKED DEVICE UNSOLICITED RESULTS Final Result [facility] [address] [place] [address], [place] [phone] * (ABNORMAL) CBC auto differential (08/10/2024 6:39 AM EST) Only the most recent of8 resultswithin the time period is included. [facility] WBC 10.3 4.8 - 10.8 K/mcL LAB HEMETOLOGY METHOD 08/10/2024 7:34 AM [facility] RBC 2.90(L) 4.50 - 5.50 M/mcL LAB HEMETOLOGY METHOD 08/10/2024 7:34 AM [facility] Hemoglobin 8.8(L) 13.5 - 17.5 g/dL LAB HEMETOLOGY METHOD 08/10/2024 7:34 AM [facility] Hematocrit 26.5(L) 42.0 - 54.0 % LAB HEMETOLOGY METHOD 08/10/2024 7:34 AM [facility] MCV 92.0 79.0 - 98.0 FL LAB HEMETOLOGY METHOD 08/10/2024 7:34 AM [facility] MCH 30.6 27.0 - 32.0 pcg LAB HEMETOLOGY METHOD 08/10/2024 7:34 AM [facility] MCHC 33.2 32.0 - 37.0 g/dL LAB HEMETOLOGY METHOD 08/10/2024 7:34 AM [facility] RDW 13.2 11.0 - 15.0 % LAB HEMETOLOGY METHOD 08/10/2024 7:34 AM [facility] Platelets 331 130 - 400 K/mcL LAB HEMETOLOGY METHOD 08/10/2024 7:34 AM [facility] MPV 10.5 7.0 - 11.0 FL LAB HEMETOLOGY METHOD 08/10/2024 7:34 AM [facility] NRBC 0.0 <1.0 % LAB HEMETOLOGY METHOD 08/10/2024 7:34 AM [facility] NRBC Absolute 0.00 <0.10 K/mcL LAB HEMETOLOGY METHOD 08/10/2024 7:34 AM [facility] Neutrophils Relative 56.8 % LAB HEMETOLOGY METHOD 08/10/2024 7:34 AM [facility] Lymphocytes Relative 22.4 % LAB HEMETOLOGY METHOD 08/10/2024 7:34 AM [facility] Monocytes Relative 13.1 % LAB HEMETOLOGY METHOD 08/10/2024 7:34 AM [facility] Eosinophils Relative 5.7 % LAB HEMETOLOGY METHOD 08/10/2024 7:34 AM [facility] Basophils Relative 1.5 % LAB HEMETOLOGY METHOD 08/10/2024 7:34 AM [facility] Immature Granulocytes Relative 0.5 % LAB HEMETOLOGY METHOD 08/10/2024 7:34 AM [facility] Neutrophils Absolute 5.84 1.50 - 7.00 K/mcL LAB HEMETOLOGY METHOD 08/10/2024 7:34 AM [facility] Lymphocytes Absolute 2.31 1.00 - 5.00 K/mcL LAB HEMETOLOGY METHOD 08/10/2024 7:34 AM [facility] Monocytes Absolute 1.35(H) 0.20 - 1.00 K/mcL LAB HEMETOLOGY METHOD 08/10/2024 7:34 AM EST [facility] Eosinophils Absolute 0.59(H) 0.00 - 0.50 K/[facility] LAB HEMETOLOGY METHOD 08/10/2024 7:34 AM EST [facility] Basophils Absolute 0.15 0.00 - 0.20 K/[facility] LAB HEMETOLOGY METHOD 08/10/2024 7:34 AM EST [facility] Immature Granulocytes Absolute 0.05(H) 0.00 - 0.03 K/[facility] LAB HEMETOLOGY METHOD 08/10/2024 7:34 AM [facility] Blood Venous blood specimen / Unknown Venipuncture / Unknown 08/10/2024 6:39 AM EST 08/10/2024 7:05 AM EST us John Kulkarni MD LAB BLOOD ORDERABLES Final Re sult [facility] [address] [place] [address], * (ABNORMAL) Basic metabolic panel (08/10/2024 6:39 AM EST) Only the most recent of7 resultswithin the time period is included. Sodium 143 133 - 145 mmol/L LAB CHEMISTRY METHOD 08/10/2024 7:50 AM [facility] Potassium 3.6 3.5 - 5.5 mmol/L LAB CHEMISTRY METHOD 08/10/2024 7:50 AM [facility] Chloride 113(H) 96 - 110 mmol/L LAB CHEMISTRY METHOD 08/10/2024 7:50 AM [facility] CO2 25 21 - 32 mmol/L LAB CHEMISTRY METHOD 08/10/2024 7:50 AM [facility] Anion Gap 5 3 - 11 LAB CHEMISTRY METHOD 08/10/2024 7:50 AM [facility] Glucose 78 70 - 100 mg/dL LAB CHEMISTRY METHOD 08/10/2024 7:50 AM [facility] BUN 29(H) 5 - 25 mg/dL LAB CHEMISTRY METHOD 08/10/2024 7:50 AM [facility] Creatinine 1.93(H) 0.70 - 1.30 mg/dL LAB CHEMISTRY METHOD 08/10/2024 7:50 AM [facility] eGFR 37(L) >=60 mL/min/1. 73m2 LAB CHEMISTRY METHOD 08/10/2024 7:50 AM EST [facility] Comment:Calculation based on the??Chronic Kidney Disease Epidemiology Collaboration (CKD-EPI) equation refit??without adjustment for race. BUN/Creatinine Ratio 15.0 LAB CHEMISTRY METHOD 08/10/2024 7:50 AM [facility] Calcium 8.6 8.5 - 10.5 mg/dL LAB CHEMISTRY METHOD 08/10/2024 7:50 AM EST [facility] Blood Venous blood specimen / Unknown Venipuncture / Unknown 08/10/2024 6:39 AM EST 08/10/2024 7:05 AM EST John Kulkarni MD LAB BLOOD ORDERABLES Final Re sult [facility] [address] [place] [address], * NM Tumor Localization Whole Body 1 Day (08/09/2024 10:06 AM EST) Anatomical Region Laterality Modality Body Nuclear Medicine 08/09/2024 10:4 3 AM EST Impressions 08/09/2024 10:47 AM EST Mild nonspecific lumbar activity. -------- FINAL REPORT -------- Dictated By: Roxi Wang Dictated Date: 08/09/2024 10:43 ET Assigned Physician: Roxi Wang Reviewed and Electronically Signed By: Roxi Wang Signed Date: 08/09/2024 10:47 ET Workstation ID: [id number] Transcribed By: Self Edit Transcribed Date: 08/09/2024 10:43 ET Narrative 08/09/2024 10:47 AM EST HISTORY: Fever of unknown origin FINDINGS: Routine whole-body scintigraphy was performed following intravenous administration of 24.2 mCi of technetium 90 9M Ceretec tagged white blood cells. There are imaging obtained with 24 imaging. Imaging was performed 3 and 24 hours after injection of radiopharmaceutical. There is physiologic uptake of radiopharmaceutical within the liver and bone marrow. Mild uptake noted in the lungs on the three-hour image which clears on the 24 hour image. There is no focal abnormal increased uptake to suggest active infection or abscess. Mild nonspecific activity noted along the mid and lower lumbar region. Procedure Note Roxi Wang MD - 08/09/2024 HISTORY: Fever of unknown origin FINDINGS: Routine whole-body scintigraphy was performed followingintravenous administration of 24.2 mCi of technetium 90 9M Ceretec taggedwhite blood cells. There are imaging obtained with 24 imaging. Imaging was performed 3 and 24 hours after injection ofradiopharmaceutical. There is physiologic uptake of radiopharmaceutical within the liver andbone marrow. Mild uptake noted in the lungs on the three-hour image whichclears on the 24 hour image. There is no focal abnormal increased uptake to suggest active infection orabscess. Mild nonspecific activity noted along the mid and lower lumbar region. IMPRESSION: Mild nonspecific lumbar activity. -------- FINAL REPORT -------- Dictated By: Roxi Wang Dictated Date: 08/09/2024 10:43 ET Assigned Physician: Roxi Wang Reviewed and Electronically Signed By: Roxi Wang Signed Date: 08/09/2024 10:47 ET Workstation ID: [id number] Transcribed By: Self Edit Transcribed Date: 08/09/2024 10:43 ET us John Kulkarni MD IMG NM PROCEDURES Final Resul t * (ABNORMAL) Procalcitonin (08/09/2024 6:17 AM EST) Only the most recent of2 resultswithin the time period is included. Procalcitonin 1.37(H) <=0.16 ng/mL LAB CHEMISTRY METHOD 08/09/2024 3:18 PM EST [facility] Blood Venous blood specimen / Unknown Venipuncture / Unknown 08/09/2024 6:17 AM EST 08/09/2024 7:07 AM EST Narrative [facility] - 08/09/2024 3:18 PM EST Procalcitonin > 2.00 ng/ml: Procalcitonin Levels above 2.00 ng/ml, on the first day of ICU admission represent a high risk for progression to severe sepsis and/or septic shock. Procalcitonin < 0.50 ng/ml: Procalcitonin levels below 0.50 ng/ml on the first day of ICU admission represent a low risk for progression to severe sepsis and/or septic shock. Concentrations <0.5 ng/mL do not exclude an infection, on account of local ized infections (without systemic signs) which can be associated with such low concentrations, or a systemic infection in its initial stages (<6 hours). Furthermore, increased procalcitonin can occur without infection. PCT concentrations between 0.5 and 2.0 ng/mL should be interpreted taking into account the patient's history. It is recommended to retest PCT within 6-24 hours if any concentrations <2.0 ng/mL are obtained. us Ryanne Evans MD LAB BLOOD ORDERABLES Final Resul t [facility] [address] [place] [address], * Sedimentation rate (08/09/2024 6:17 AM EST) Only the most recent of3 resultswithin the time period is included. Sed Rate 18 0 - 20 mm/hr LAB HEMETOLOGY METHOD 08/09/2024 11:38 AM EST [facility] Blood Venous blood specimen / Unknown Venipuncture / Unknown 08/09/2024 6:17 AM EST 08/09/2024 7:08 AM EST us Ryanne Evans MD LAB BLOOD ORDERABLES Final Resul t Performing Organization Address City/[facility]/ZIP Co de Phone Number [facility] [address] [place] [address], [place] [phone] * (ABNORMAL) C-reactive protein (08/09/2024 6:17 AM EST) Only the most recent of3 resultswithin the time period is included. C-Reactive Protein 2.18(H) <=0.50 mg/dL LAB CHEMISTRY METHOD 08/09/2024 1:46 PM EST [facility] Blood Venous blood specimen / Unknown Venipuncture / Unknown 08/09/2024 6:17 AM EST 08/09/2024 7:07 AM EST us Ryanne Evans MD LAB BLOOD ORDERABLES Final Resul t Performing Organization Address [facility]/ZIP Co de Phone Number [facility] [address] [place] [address], [place] [phone] * (ABNORMAL) Magnesium (08/09/2024 6:17 AM EST) Magnesium 1.6(L) 1.9 - 2.6 mg/dL LAB CHEMISTRY METHOD 08/09/2024 1:46 PM EST [facility] Blood Venous blood specimen / Unknown Venipuncture / Unknown 08/09/2024 6:17 AM EST 08/09/2024 7:07 AM EST us John Kulkarni MD LAB BLOOD ORDERABLES Final Re sult Performing Organization Address [facility]/ZIP Co de Phone Number [facility] [address] [place] [address], [place] [phone] * Respiratory virus panel molecular study (08/08/2024 2:57 AM EST) Pathologist [facility] [place] Adenovirus Detection by PCR Not Detected Not Detected LAB MICROBIOLOGY METHOD 08/08/2024 9:46 AM [facility] Influenza A PCR Not Detected Not Detected LAB MICROBIOLOGY METHOD 08/08/2024 9:46 AM [facility] Influenza B PCR Not Detected Not Detected LAB MICROBIOLOGY METHOD 08/08/2024 9:46 AM [facility] Coronavirus 229E Not Detected Not Detected LAB MICROBIOLOGY METHOD 08/08/2024 9:46 AM [facility] Coronavirus HKU1 Not Detected Not Detected LAB MICROBIOLOGY METHOD 08/08/2024 9:46 AM [facility] Coronavirus OC43 Not Detected Not Detected LAB MICROBIOLOGY METHOD 08/08/2024 9:46 AM [facility] Coronavirus NL63 Not Detected Not Detected LAB MICROBIOLOGY METHOD 08/08/2024 9:46 AM [facility] Parainfluenza Virus 1 Not Detected Not Detected LAB MICROBIOLOGY METHOD 08/08/2024 9:46 AM [facility] Parainfluenza Virus 2 Not Detected Not Detected LAB MICROBIOLOGY METHOD 08/08/2024 9:46 AM [facility] Parainfluenza Virus 3 Not Detected Not Detected LAB MICROBIOLOGY METHOD 08/08/2024 9:46 AM [facility] Parainfluenza Virus 4 Not Detected Not Detected LAB MICROBIOLOGY METHOD 08/08/2024 9:46 AM [facility] RSV PCR Not Detected Not Detected LAB MICROBIOLOGY METHOD 08/08/2024 9:46 AM [facility] Human Metapneumovirus A and B Not Detected Not Detected LAB MICROBIOLOGY METHOD 08/08/2024 9:46 AM [facility] Rhinovirus/Entero virus Not Detected Not Detected LAB MICROBIOLOGY METHOD 08/08/2024 9:46 AM [facility] Bordetella pertussis Not Detected Not Detected LAB MICROBIOLOGY METHOD 08/08/2024 9:46 AM EST [facility] Bordetella parapertussis Not Detected Not Detected LAB MICROBIOLOGY METHOD 08/08/2024 9:46 AM [facility] Mycoplasma pneumo by PCR Not Detected Not Detected LAB MICROBIOLOGY METHOD 08/08/2024 9:46 AM [facility] Chlamydia pneumoniae Not Detected Not Detected LAB MICROBIOLOGY METHOD 08/08/2024 9:46 AM [facility] SARS COV-2 Not Detected Not Detected LAB MICROBIOLOGY METHOD 08/08/2024 9:46 AM [facility] Swab Both anterior nares / Unknown Non-blood Collection / Unknown 08/08/2024 2:57 AM EST 08/08/2024 8:52 AM EST [facility] - 08/08/2024 9:46 AM EST Testing was performed using the [employer] Respiratory Pathogen PCR Assay. All results must be correlated with the clinical findings. Results should not be used as the sole basis for diagnosis. False Negative results may occur from the presence of sequence variants in the region targeted by the assay or the presence of inhibitors. Results may be affected by concurrent antiviral/antimicrobial therapy or levels of organisms that are below the limit of detection. us Kimmy MCCAIN LAB MICROBIOLOGY - GENERAL O RDERABLES Final Result [facility] [address] [place] [address], * (ABNORMAL) TRANSTHORACIC ECHOCARDIOGRAM (TTE) COMPLETE W/ CONTRAST (08/07/2024 10:43 AM EST) Left Atrium Minor [place] 6.5 cm CV PACS Left Atrium Major [place] 6.9 cm CV PACS LA Area Sys (A2C) 27 cm2 CV PACS LA Area Sys (A4C) 26 cm2 CV PACS LA Volume (BP) 81 mL CV PACS RA Area 18.1 cm2 CV PACS RA 2D Volume 49 mL CV PACS AV Mean Gradient 7 mmHg CV PACS Ao VTI 42.0 cm CV PACS AV Peak Jerzy 1.9 m/s CV PACS AV Peak Gradient 15 mmHg CV PACS AV Area Continuity Equation 2.9 cm2 CV PACS AV Area Peak Velocity 2.6 cm2 CV PACS Aortic Sinus Valsalva 3.8 cm CV PACS Ascending Aorta 4.1 cm CV PACS IVSD 1.0 0.6 - 1.0 cm CV PACS LVIDD 4.0(A) 4.2 - 5.8 cm CV PACS LVIDS 2.1(A) 2.5 - 4.0 cm CV PACS LVOT Diameter 2.3 cm CV PACS LVOT Mean Jerzy 0.9 m/s CV PACS LVOT Mean Grad 3 mmHg CV PACS LVOT Peak VTI 29.7 cm CV PACS LVOT Peak Jerzy 1.2 m/s CV PACS LVOT Peak Gradient 6 mmHg CV PACS LVPWD 1.1(A) 0.6 - 1.0 cm CV PACS MV E' Tissue Velocity Lateral 11 cm/s CV PACS MV E' Tissue Velocity Septal 8 cm/s CV PACS LVOT Area 4.2 cm2 CV PACS LVOT Stroke Volume 123 mL CV PACS MV Deceleration Falls 4.6 m/s2 CV PACS E Wave Deceleration Time 218 119 - 242 ms CV PACS MV PHT 63 ms CV PACS MV Peak A Jerzy 1.00 m/s CV PACS MV Peak E Jerzy 1.00 m/s CV PACS MV Area PHT 3.4 cm2 CV PACS RV Diastolic Basal Dimension 3.4 2.5 - 4.1 cm CV PACS RV S' 11 cm/s CV PACS TAPSE 25 mm CV PACS E/E' Ratio Septal 13 CV PACS E/E' Ratio Averaged 11 CV PACS LVOT Stroke Index 0 mL/m2 CV PACS Relative Wall Thickness ratio 0.54(A) 0.24 - 0.42 CV PACS LVOT:AV VTI Index 0.71 CV PACS FS 48 % CV PACS LV Mass 2D 141 96 - 200 g CV PACS Ascending Aorta Index 1.84 cm/m2 CV PACS LVOT flow 374 mL/s CV PACS RA 2D Volume Index 22 18 - 32 mL/m2 CV PACS NICHOL Index (VTI) 1.32 cm2/m2 CV PACS NICHOL Index (Pk Jerzy) 1.17 cm2/m2 CV PACS LVIDD Index 1.79 cm/m2 CV PACS LVIDS Index 0.94 cm/m2 CV PACS AV Velocity Ratio 0.62 CV PACS E/A Ratio 1.0 0.8 - 2.0 CV PACS E/E' Ratio Lateral 9 CV PACS LA Volume Index (BP) 35 mL/m2 CV PACS LV Mass Index 2D 61 50 - 102 g/m2 CV PACS BSA 2.29 m2 CV PACS Est. RA Pressure 8 mmHg CV PACS LVOT Cardiac Output 0.0 L/min CV PACS LVOT Cardiac Index 3.3 L/min/m2 CV PACS RV Free Wall Peak S' 11 cm/s CV PACS RA Major [place] 5.5 cm CV PACS RA Major [place] Index 2.5 2.1 - 2.7 cm/m2 CV PACS AV Area 2D 2.6 cm2 CV PACS NICHOL Index (2D) 1.17 cm2/m2 CV PACS AV Area Index 1.1 CV PACS Anatomical Region Laterality Modality Ultrasound Narrative 08/07/2024 11:04 AM EST ?Left ventricle cavity size is normal. ??There is normal left ventricular wall thickness. ??Left ventricular systolic function is low normal with an ejection fraction of 50-55%. ??There is akinesis of the mid anterior, apical septal, apical anterior, and apical dawson. ??There is no evidence of left ventricular apical thrombus. ?Right ventricle cavity is normal. Right ventricular systolic function is normal. ?No hemodynamically significant valve disease. ??Mild valvular abnormalities as below. ?The ascending aorta is mildly dilated (4.1 cm). ?Mild left atrial enlargement. Overall low normal systolic function of the left ventricle with wall motion abnormalities described above. Left Ventricle Left ventricle cavity size is normal. Wall thickness is normal. Systolic function is low normal with an ejection fraction of 50-55%. There is akinesis of the mid anterior, apical septal, apical anterior, and apical dawson. There is no evidence of left ventricular apical thrombus. Unable to assess diastolic function. Right Ventricle Right ventricle cavity appears normal. Systolic function is normal. Left Atrium Left atrium cavity is mildly dilated. Right Atrium Right atrium cavity is normal. IVC/SVC RA pressures is estimated to be 8 mmHg (IVC diameter >21 mm and decreases >50% during inspiration). Mitral Valve The leaflets are mildly thickened. There is mild annular calcification. There is trace regurgitation. There is no evidence of mitral valve stenosis. Tricuspid Valve The leaflets exhibit normal excursion. There is no regurgitation or stenosis. Cannot assess RVSP. Aortic Valve The aortic valve is trileaflet. The leaflets are mildly thickened. There is mild regurgitation. There is no evidence of aortic valve stenosis. Pulmonic Valve There is no regurgitation or stenosis. Ascending Aorta The ascending aorta is mildly dilated (4.1 cm). The aortic root is likely upper normal for age and body surface area. Pericardium Pericardium appears normal. There is no pericardial effusion. Study Details Overall the study quality was adequate. Definity contrast was given to enhance imaging. us Bud Davalos MD CV ECHO PROCEDURES Final Re sult * (ABNORMAL) Troponin I high sensitivity (08/07/2024 5:52 AM EST) Only the most recent of4 resultswithin the time period is included. High Sensitivity Troponin I 3,643(HH) <=79 ng/L LAB CHEMISTRY METHOD 08/07/2024 7:32 AM EST [facility] Blood Venous blood specimen / Unknown Venipuncture / Unknown 08/07/2024 5:52 AM EST 08/07/2024 6:44 AM EST Narrative [facility] - 08/07/2024 7:32 AM EST High levels of biotin in samples may falsely decrease hsTroponin values. ??Use caution when interpreting hsTroponin results in patients taking biotin who exhibit renal impairment (eGFR <60) or in patients taking more than 20 mg/day of biotin. us Kimmy MCCAIN LAB BLOOD ORDERABLES Final R esult [facility] [address] [place] [address], [place] [phone] * (ABNORMAL) Manual differential (08/07/2024 5:52 AM EST) Only the most recent of2 resultswithin the time period is included. Neutrophils % 83.0 % LAB HEMETOLOGY METHOD 08/07/2024 7:46 AM [facility] Lymphocytes % 6.0 % LAB HEMETOLOGY METHOD 08/07/2024 7:46 AM [facility] Monocytes % 6.0 % LAB HEMETOLOGY METHOD 08/07/2024 7:46 AM [facility] Eosinophils % 4.0 % LAB HEMETOLOGY METHOD 08/07/2024 7:46 AM [facility] Basophils % 0.0 % LAB HEMETOLOGY METHOD 08/07/2024 7:46 AM [facility] Metamyelocytes % 1.0(H) % LAB HEMETOLOGY METHOD 08/07/2024 7:46 AM [facility] Myelocytes % 1.0(H) % LAB HEMETOLOGY METHOD 08/07/2024 7:46 AM [facility] Neutrophils Absolute Manual 12.78(H) 1.50 - 7.00 K/mcL LAB HEMETOLOGY METHOD 08/07/2024 7:46 AM [facility] Lymphocytes Absolute 0.92(L) 1.00 - 5.00 K/mcL LAB HEMETOLOGY METHOD 08/07/2024 7:46 AM [facility] Monocytes Absolute Manual 0.92 0.20 - 1.00 K/mcL LAB HEMETOLOGY METHOD 08/07/2024 7:46 AM [facility] Eosinophils Absolute Manual 0.62(H) 0.00 - 0.50 K/mcL LAB HEMETOLOGY METHOD 08/07/2024 7:46 AM [facility] Basophils Absolute Manual 0.00 0.00 - 0.20 K/mcL LAB HEMETOLOGY METHOD 08/07/2024 7:46 AM EST [facility] Metamyelocytes Absolute Manual 0.15(H) 0.00 - 0.00 K/[facility] LAB HEMETOLOGY METHOD 08/07/2024 7:46 AM EST [facility] Myelocytes Absolute Manual 0.15(H) 0.00 - 0.00 K/[facility] LAB HEMETOLOGY METHOD 08/07/2024 7:46 AM EST [facility] Rbc Morphology Present( A) Consistent with indices, Normal for [place] LAB HEMETOLOGY METHOD 08/07/2024 7:46 AM EST [facility] Comment:RBC: Morphology agre es with CBC Platelet Morphology - WAM See Note(A) Normal [facility] 08/07/2024 7:46 AM [facility] Comment:PLT: Normal Schistocytes Present < 5%(A) (none) LAB HEMETOLOGY METHOD 08/07/2024 7:46 AM EST [facility] Blood Venous blood specimen / Unknown Venipuncture / Unknown 08/07/2024 5:52 AM EST 08/07/2024 6:44 AM EST us Bud Davalos MD LAB BLOOD ORDERABLES Final Result [facility] [address] [place] [address], * Phosphorus (08/07/2024 5:52 AM EST) Phosphorus 3.1 2.5 - 4.5 mg/dL LAB CHEMISTRY METHOD 08/07/2024 7:30 AM EST [facility] Blood Venous blood specimen / Unknown Venipuncture / Unknown 08/07/2024 5:52 AM EST 08/07/2024 6:44 AM EST Kimmy MCCAIN LAB BLOOD ORDERABLES Final R esult Performing Organization Address [facility]/ZIP Co de Phone Number [facility] [address] [place] [address], * Creatine kinase (08/07/2024 5:52 AM EST) Total CK 110 22 - 269 unit/L LAB CHEMISTRY METHOD 08/07/2024 8:24 AM EST [facility] Blood Venous blood specimen / Unknown Venipuncture / Unknown 08/07/2024 5:52 AM EST 08/07/2024 6:44 AM EST John Kulkarni MD LAB BLOOD ORDERABLES Final Re sult Performing Organization Address [facility] Co de Phone Number [facility] [address] [place] [address], [place] [phone] * Vascular US duplex lower extremity venous bilateral (08/07/2024 1:02 AM EST) Anatomical Region Laterality Modality Vascular, Abdomen Ultrasound 08/07/2024 3:28 AM EST Impressions 08/07/2024 3:29 AM EST No deep vein thrombosis identified in the bilateral lower extremity veins -------- FINAL REPORT -------- Dictated By: Sumaya Stephenson Dictated Date: 08/07/2024 03:28 ET Assigned Physician: Sumaya Stephenson Reviewed and Electronically Signed By: Sumaya Stephenson Signed Date: 08/07/2024 03:29 ET Workstation ID: [id number] Transcribed By: Self Edit Transcribed Date: 08/07/2024 03:28 ET Narrative 08/07/2024 3:29 AM EST INDICATION: edema COMPARISON: July 2019 TECHNIQUE: Ultrasound of the ??bilateral lower extremity veins is performed using color-flow Doppler, graded compression with B mode Doppler with spectral analysis FINDINGS: The common femoral, superficial femoral and popliteal veins compress normally throughout their length. Normal response to distal augmentation is seen with calf compression. Included calf vessels are patent on color Doppler. Procedure Note Sumaya Stephenson MD - 08/07/2024 INDICATION: edema COMPARISON: July 2019 TECHNIQUE: Ultrasound of the bilateral lower extremity veins is performedusing color-flow Doppler, graded compression with B mode Doppler withspectral analysis FINDINGS: The common femoral, superficial femoral and popliteal veinscompress normally throughout their length. Normal response to distalaugmentation is seen with calf compression. Included calf vessels arepatent on color Doppler. IMPRESSION: No deep vein thrombosis identified in the bilateral lower extremityveins -------- FINAL REPORT -------- Dictated By: Sumaya Stephenson Dictated Date: 08/07/2024 03:28 ET Assigned Physician: Sumaya Stephenson Reviewed and Electronically Signed By: Sumaya Stephenson Signed Date: 08/07/2024 03:29 ET Workstation ID: [id number] Transcribed By: Self Edit Transcribed Date: 08/07/2024 03:28 ET Kimmy MCCAIN CV VASCULAR PROCEDURES Final Result * XR Foot 3+ Views Left (08/06/2024 8:12 PM EST) Anatomical Region Laterality Modality Lower Extremities, Foot [facility] 08/07/2024 7:40 AM EST Impressions 08/07/2024 7:46 AM EST Amputation at the level of the distal portion of the first proximal phalanx. Dorsiflexion of the second through fifth MTP joints. Instrumentation and fusion in the mid foot. Linear metallic foreign body in the soft tissues adjacent to the fifth metatarsal. -------- FINAL REPORT -------- Dictated By: Luis Glasgow Dictated Date: 08/07/2024 07:40 ET Assigned Physician: Luis Glasgow Reviewed and Electronically Signed By: Luis Glasgow Signed Date: 08/07/2024 07:46 ET Workstation ID: [id number] Transcribed By: Self Edit Transcribed Date: 08/07/2024 07:40 ET Narrative 08/07/2024 7:46 AM EST EXAMINATION: LEFT FOOT CLINICAL INFORMATION: Great toe amputation COMPARISON: None. TECHNIQUE: 3 views of the left foot FINDINGS: There has been amputation at the level of the distal aspect of the first proximal phalanx. Amputation margin appear sharply defined. There are some erosions present at the first MTP joint with joint space narrowing. There is limited assessment of the second through fifth toes due to dorsiflexion. There is soft tissue swelling throughout the visualized anatomy. Screws project through the midfoot. The talus, calcaneus and articulations of the midfoot are indistinct and I suspect previous fusion. There is a linear metallic foreign body in the soft tissues lateral to the midshaft of the fifth metatarsal. There is arterial calcification. There are vascular calcifications in the medial soft tissues of the distal leg Procedure Note Luis Glasgow MD - 08/07/2024 EXAMINATION: LEFT FOOT CLINICAL INFORMATION: Great toe amputation COMPARISON: None. TECHNIQUE: 3 views of the left foot FINDINGS: There has been amputation at the level of the distal aspect of the firstproximal phalanx. Amputation margin appear sharply defined. There are some erosions present at the first MTP joint with joint spacenarrowing. There is limited assessment of the second through fifth toesdue to dorsiflexion. There is soft tissue swelling throughout the visualized anatomy. Screwsproject through the midfoot. The talus, calcaneus and articulations of themidfoot are indistinct and I suspect previous fusion. There is a linear metallic foreign body in the soft tissues lateral to themidshaft of the fifth metatarsal. There is arterial calcification. There are vascular calcifications in the medial soft tissues of the distalleg IMPRESSION: Amputation at the level of the distal portion of the first proximalphalanx. Dorsiflexion of the second through fifth MTP joints.Instrumentation and fusion in the mid foot. Linear metallic foreign body in the soft tissues adjacent to the fifthmetatarsal. -------- FINAL REPORT -------- Dictated By: Luis Glasgow Dictated Date: 08/07/2024 07:40 ET Assigned Physician: Luis Glasgow Reviewed and Electronically Signed By: Luis Glasgow Signed Date: 08/07/2024 07:46 ET Workstation ID: [id number] Transcribed By: Self Edit Transcribed Date: 08/07/2024 07:40 ET us Roland Kauffman MD IMG XR PROCEDURES Final Resu lt * (ABNORMAL) Urinalysis with reflex microscopic and culture (08/06/2024 6:01 PM EST) Specific [place] Urine 1.025 1.003 - 1.030 LAB URINALYSIS - AUTOMATED METHOD 08/06/2024 7:38 PM [facility] pH, Urine 6.0 5.0 - 8.0 pH LAB URINALYSIS - AUTOMATED METHOD 08/06/2024 7:38 PM [facility] Leukocytes, Urine Small(A) Negative LAB URINALYSIS - AUTOMATED METHOD 08/06/2024 7:38 PM [facility] Nitrite, Urine Negative Negative LAB URINALYSIS - AUTOMATED METHOD 08/06/2024 7:38 PM [facility] Protein, Urine 100(A) <=Trace mg/dL LAB URINALYSIS - AUTOMATED METHOD 08/06/2024 7:38 PM [facility] Glucose, Urine Negative Negative mg/dL LAB URINALYSIS - AUTOMATED METHOD 08/06/2024 7:38 PM [facility] Ketones, Urine Negative Negative mg/dL LAB URINALYSIS - AUTOMATED METHOD 08/06/2024 7:38 PM [facility] Urobilinogen , Urine 0.2 0.2 - 1.0 mg/dL LAB URINALYSIS - AUTOMATED METHOD 08/06/2024 7:38 PM [facility] Bilirubin, Urine Negative Negative LAB URINALYSIS - AUTOMATED METHOD 08/06/2024 7:38 PM [facility] Blood, Urine Moderate(A) Negative LAB URINALYSIS - AUTOMATED METHOD 08/06/2024 7:38 PM [facility] RBC, Urine 20(H) 0 - 4 /HPF 08/06/2024 7:38 PM [facility] WBC, Urine 100(H) 0 - 4 /HPF 08/06/2024 7:38 PM [facility] Squamous Epithelial, Urine 40 0 - 60 /LPF 08/06/2024 7:38 PM [facility] Bacteria, Urine Moderate(A) Negative /HPF 08/06/2024 7:38 PM [facility] Hyaline Casts, Urine 5(H) 0 - 3 /LPF 08/06/2024 7:38 PM [facility] Other Casts, Urine Rare coarse granular casts /LPF 08/06/2024 7:38 PM [facility] Yeast, Urine Present(A) None /HPF 08/06/2024 7:38 PM [facility] Urine Urine specimen obtained by clean catch procedure / Unknown Non-blood Collection / Unknown 08/06/2024 6:01 PM EST 08/06/2024 6:29 PM EST us Roland Kauffman MD LAB URINE ORDERABLES Final R esult Performing Organization Address City/[facility]/ZIP Co de Phone Number [facility] [address] [place] [address], [place] [phone] * Brooke urine culture tube (08/06/2024 6:01 PM EST) Extra Tube Hold for add-ons. 08/06/2024 8:01 PM [facility] Comment:Auto resulted. Urine Urine specimen obtained by clean catch procedure / Unknown Non-blood Collection / Unknown 08/06/2024 6:01 PM EST 08/06/2024 6:29 PM EST us Roland Kauffman MD LAB URINE ORDERABLES Final R esult Performing Organization Address City/[facility]/ZIP Co de Phone Number [facility] [address] [place] [address], [place] [phone] * (ABNORMAL) Culture urine (08/06/2024 6:01 PM EST) Culture, Urine 10,000-49,0 00 CFU/mL Sabina albicans/du bliniensis( A) 08/09/2024 10:23 AM EST [facility] Comment: Edited result: Previously reported as Yeast on 08/08/2024 at 1248 EST. Urine Indwelling urinary catheter / Unknown Non-blood Collection / Unknown 08/06/2024 6:01 PM EST 08/06/2024 7:38 PM EST us Roland Kauffman MD LAB MICROBIOLOGY - GENERAL O RDERABLES Final Result [facility] [address] [place] [address], [place] [phone] * Activated Partial Thromboplastin Time - STAT (08/06/2024 5:40 PM EST) Pathologist [facility] [place] aPTT 34.8 24.1 - 39.3 sec LAB COAGULATION METHOD 08/06/2024 6:31 PM EST [facility] Blood Venous blood specimen / Unknown Venipuncture / Unknown 08/06/2024 5:40 PM EST 08/06/2024 6:02 PM EST us Roland Kauffman MD LAB BLOOD ORDERABLES Final R esult [facility] [address] [place] [address], [place] [phone] * Prothrombin Time with INR - STAT (08/06/2024 5:40 PM EST) Protime 13.7 10.6 - 13.9 sec LAB COAGULATION METHOD 08/06/2024 6:31 PM EST [facility] INR 1.1 LAB COAGULATION METHOD 08/06/2024 6:31 PM [facility] Blood Venous blood specimen / Unknown Venipuncture / Unknown 08/06/2024 5:40 PM EST 08/06/2024 6:02 PM EST us Roland Kauffman MD LAB BLOOD ORDERABLES Final R esult Performing Organization Address [facility] Co de Phone Number [facility] [address] [place] [address], [place] [phone] * (ABNORMAL) Anti-Xa - STAT (08/06/2024 5:40 PM EST) Heparin Anti-Xa <0.04(L) 0.30 - 0.70 I Unit/mL LAB COAGULATION METHOD 08/06/2024 7:00 PM EST [facility] Blood Venous blood specimen / Unknown Venipuncture / Unknown 08/06/2024 5:40 PM EST 08/06/2024 6:02 PM EST Narrative [facility] - 08/06/2024 7:00 PM EST Therapeutic range listed is for Unfractionated Heparin. LMW Heparin therapeutic range: 0.50-1.20 IU/mL us Roland Kauffman MD LAB BLOOD ORDERABLES Final R esult Performing Organization Address City/[facility] Co de Phone Number [facility] [address] [place] [address], [place] [phone] * CT Angio Chest wo and/or w Contrast (08/06/2024 5:15 PM EST) Anatomical Region Laterality Modality Body Computed Tomogra phy 08/06/2024 6:09 PM EST Impressions 08/06/2024 6:09 PM EST Impression: No evidence of pulmonary embolus Multifocal bilateral subsegmental atelectasis This document has been electronically signed by: Ildefonso Arteaga MD on 08/06/2024 18:09:18 Narrative 08/06/2024 6:[address] angiogram chest/pulmonary arteries with contrast Multiplanar reconstructions and MIPS Comparison: None Findings: No filling defects are noted to suggest pulmonary embolus. Main pulmonary artery normal in caliber. Thoracic aorta normal caliber without dissection. Heart size enlarged. Great vessel origins patent. Dense coronary calcifications. Lingular and left lower lobe atelectasis noted. Posterior right lower lobe subsegmental atelectasis. No significant mediastinal or hilar adenopathy. No free pleural fluid. No acute bony abnormality noted. Procedure Note Ildefonso Arteaga MD - 08/06/2024 CT angiogram chest/pulmonary arteries with contrast Multiplanar reconstructions and MIPS Comparison: None Findings: No filling defects are noted to suggest pulmonary embolus. Main pulmonary artery normal in caliber. Thoracic aorta normal caliber without dissection. Heart size enlarged. Great vessel origins patent. Dense coronary calcifications. Lingular and left lower lobe atelectasis noted. Posterior right lower lobe subsegmental atelectasis. No significant mediastinal or hilar adenopathy. No free pleural fluid. No acute bony abnormality noted. IMPRESSION: Impression: No evidence of pulmonary embolus Multifocal bilateral subsegmental atelectasis This document has been electronically signed by: Ildefonso Arteaga MD on 08/06/2024 18:09:18 Roland Kauffman MD IMG CT PROCEDURES Final Resu lt * Rapid [id number], molecular (08/06/2024 4:45 PM EST) SARS-COV-2 Screen Not Detected Not Detected METHOD [id number] 08/06/2024 6:05 PM EST [facility] Swab Both anterior nares / Unknown Non-blood Collection / Unknown 08/06/2024 4:45 PM EST 08/06/2024 4:50 PM EST Narrative [facility] - 08/06/2024 6:05 PM EST Unable to obtain a valid result. Interfering substances may be present in this specimen. Recollection and repeat testing with an alternate method is suggested. us Roland Kauffman MD LAB MICROBIOLOGY - GENERAL O RDERABLES Final Result [facility] [address] [place] [address], [place] [phone] * (ABNORMAL) D-Dimer (Quantitative) (08/06/2024 4:03 PM EST) [facility] D-Dimer, Quant (D-DU) 1,595(H) <=230 ng/mL DDU LAB COAGULATION METHOD 08/06/2024 4:22 PM EST [facility] Blood Venous blood specimen / Unknown Venipuncture / Unknown 08/06/2024 4:03 PM EST 08/06/2024 4:10 PM EST Narrative [facility] - 08/06/2024 4:22 PM EST D-Dimer <230 ng/mL (D-Dimer units) is the threshold for exclusion of DVT/PE. D-Dimer may be elevated in: Critically ill, severely infected, trauma patients, DIC, acute CVA, acute AK, unstable angina, AF, old age, , and smoking. D-Dimer may be decreased with: Initiation of heparin therapy and oral anticoagulants. us Roland Kauffman MD LAB BLOOD ORDERABLES Final R esult [facility] [address] [place] [address], [place] [phone] * 12-Lead ECG (08/06/2024 3:33 PM EST) [facility] Ventricular Rate ECG 83 BPM GEMUSE Atrial Rate 84 BPM GEMUSE QRS Duration 96 ms GEMUSE Q-T Interval 358 ms GEMUSE QTc 420 ms GEMUSE R [place] -32 degrees GEMUSE T [place] 35 degrees GEMUSE ECG Interpretation Normal sinus rhythm with 1st degree A-V block Left axis deviation Cannot rule out Anterior infarct (cited on or before 13-OCT-2020) Abnormal ECG When compared with ECG of 22-APR-2024 12:34, No significant changes are noted Confirmed by PRISCILA BLAIR ([id number]) on 08/08/2024 1:57:59 PM GEMUSE 08/06/2024 3:33 PM EST 08/08/2024 1:57 PM EST us Roland Kauffman MD ECG ORDERABLES Final Result Performing Organization Address [facility] de Phone Number GEMUSE * Culture blood (08/06/2024 3:30 PM EST) Only the most recent of2 resultswithin the time period is included. Culture, Blood No growth at 5 days LAB MICROBIOLOGY METHOD 08/11/2024 4:01 PM EST [facility] Blood Venous blood specimen / Unknown Venipuncture / Unknown 08/06/2024 3:30 PM EST 08/06/2024 3:42 PM EST us Roland Kauffman MD LAB MICROBIOLOGY - GENERAL O RDERABLES Final Result Performing Organization Address [facility] de Phone Number [facility] [address] [place] [address], [place] [phone] * Lactate, with reflex (08/06/2024 2:48 PM EST) Pathologist [facility] [place] LACTIC ACID 1.3 0.4 - 2.0 mmol/L LAB CHEMISTRY METHOD 08/06/2024 3:30 PM EST [facility] Blood Venous blood specimen / Unknown Venipuncture / Unknown 08/06/2024 2:48 PM EST 08/06/2024 2:58 PM EST us Roland Kauffman MD LAB BLOOD ORDERABLES Final R esult Performing Organization Address [facility] de Phone Number [facility] [address] [place] [address], [place] [phone] * (ABNORMAL) Comprehensive metabolic panel (08/06/2024 2:48 PM EST) Sodium 146(H) 133 - 145 mmol/L LAB CHEMISTRY METHOD 08/06/2024 3:24 PM EST [facility] Potassium 3.9 3.5 - 5.5 mmol/L LAB CHEMISTRY METHOD 08/06/2024 3:24 PM [facility] Chloride 117(H) 96 - 110 mmol/L LAB CHEMISTRY METHOD 08/06/2024 3:24 PM [facility] CO2 24 21 - 32 mmol/L LAB CHEMISTRY METHOD 08/06/2024 3:24 PM [facility] Anion Gap 5 3 - 11 LAB CHEMISTRY METHOD 08/06/2024 3:24 PM [facility] Glucose 135(H) 70 - 100 mg/dL LAB CHEMISTRY METHOD 08/06/2024 3:24 PM [facility] BUN 27(H) 5 - 25 mg/dL LAB CHEMISTRY METHOD 08/06/2024 3:24 PM [facility] Creatinine 2.31(H) 0.70 - 1.30 mg/dL LAB CHEMISTRY METHOD 08/06/2024 3:24 PM [facility] eGFR 29(L) >=60 mL/min/1. 73m2 LAB CHEMISTRY METHOD 08/06/2024 3:24 PM [facility] Comment:Calculation based on the??Chronic Kidney Disease Epidemiology Collaboration (CKD-EPI) equation refit??without adjustment for race. BUN/Creatinine Ratio 11.7 LAB CHEMISTRY METHOD 08/06/2024 3:24 PM [facility] Calcium 8.5 8.5 - 10.5 mg/dL LAB CHEMISTRY METHOD 08/06/2024 3:24 PM [facility] AST (SGOT) 24 10 - 42 unit/L LAB CHEMISTRY METHOD 08/06/2024 3:24 PM [facility] ALT (SGPT) 18 10 - 60 unit/L LAB CHEMISTRY METHOD 08/06/2024 3:24 PM [facility] Alkaline Phosphatase 146(H) 42 - 121 unit/L LAB CHEMISTRY METHOD 08/06/2024 3:24 PM EST [facility] Total Protein 6.3 6.0 - 8.0 g/dL LAB CHEMISTRY METHOD 08/06/2024 3:24 PM EST [facility] Albumin 2.8(L) 3.2 - 5.0 g/dL LAB CHEMISTRY METHOD 08/06/2024 3:24 PM EST [facility] Total Bilirubin 0.6 0.0 - 1.4 mg/dL LAB CHEMISTRY METHOD 08/06/2024 3:24 PM EST [facility] Blood Venous blood specimen / Unknown Venipuncture / Unknown 08/06/2024 2:48 PM EST 08/06/2024 3:00 PM EST us Roland Kauffman MD LAB BLOOD ORDERABLES Final R esult [facility] [address] [place] [address], [place] [phone] * Insert Midline (08/02/2024 2:19 PM EST) Narrative Yvette Campos RN - 08/02/2024 2:19 PM EST Yvette Campos RN ? 08/02/2024 ??2:28 PM MidLine Insertion Procedure Note Indications: ??Home IV therapy Procedure: Insertion of 4F single lumen Bard PowerMidline Lot: [id number]; Exp: 2025-09-05 Maximum sterile technique was used including antiseptics, cap, gloves, gown, hand hygiene, mask, and sheet. Lidocaine given 2 ml SC. US guided. #4 F Midline inserted to the L Basilic vein per hospital protocol. ?? Blood return: ??yes Findings: Catheter inserted 15 cm length, with 0 exposed. Mid upper arm circumference is 30 cm pre and post procedure. ??There were no changes to vital signs. Catheter was flushed with 10 cc NS. Midline was secured with catheter stabilization device (stat lock) followed by CHG dsg. Patient did tolerate procedure well. Recommendations: Midline Brochure left at bedside with teaching instruction. us Rufino Figueroa MD IV THERAPY ORDERABLES Final Resu lt * Transfuse RBC, Leukoreduced (07/30/2024 7:11 PM EST) us Rufino Figueroa MD BLOOD TRANSFUSION ORDERABLES Mario edwar Result - Final * Type and screen (07/30/2024 10:58 AM EST) Pathologist [facility] [place] ABO Group A 07/30/2024 11:57 AM EST [facility] Rh Type Positive 07/30/2024 11:57 AM [facility] Antibody Screen Negative 07/30/2024 11:57 AM [facility] Blood Venous blood specimen / Unknown Venipuncture / Unknown 07/30/2024 10:58 AM EST 07/30/2024 11:11 AM EST us Rufino Figueroa MD LAB BLOOD BANK TEST ORDERABLES F inal Result [facility] [address] [place] [address], * Prepare RBC: 1 Units, Leukoreduced (07/30/2024 9:23 AM EST) Pathologist [facility] [place] Product Code [id number] 07/30/2024 1:09 PM [facility] Unit Number [id number] 07/30/20 1:09 PM [facility] Crossmatch Compatible 07/30/2024 12:02 PM [facility] Dispense Status Transfused 07/30/2024 1:09 PM [facility] Unit ABO Rh APOS 07/30/2024 1:09 PM [facility] Unit Expiration Date Time [id number] 07/30/2024 1:09 PM [facility] Unit Blood Type 6200 07/30/2024 1:09 PM EST [facility] Blood Venous blood specimen / Unknown 07/30/2024 9:23 AM EST 07/30/2024 11:11 AM EST Rufino Figueroa MD BLOOD BANK PRODUCT ORDERABLES Fi nal Result Performing Organization Address [facility] Co de Phone Number [facility] [address] [place] [address], [place] [phone] * Hemoglobin A1c (07/26/2024 5:37 AM EST) Hemoglobin A1C 4.8 <6.5 % LAB CHEMISTRY METHOD 07/26/2024 1:04 PM [facility] Mean Bld Glu Estim. 91 mg/dL LAB CHEMISTRY METHOD 07/26/2024 1:04 PM [facility] Blood Venous blood specimen / Unknown Venipuncture / Unknown 07/26/2024 5:37 AM EST 07/26/2024 6:32 AM EST Ryanne Evans MD LAB BLOOD ORDERABLES Final Resul t Performing Organization Address [facility] Co de Phone Number [facility] [address] [place] [address], [place] [phone] * (ABNORMAL) Lipid panel (06/05/1999) LDL/HDL Ratio 5 <=5 Triglycerides 219(A) <=200 mg/dL Cholesterol 227(A) <=200 mg/dL HDL 43 >=34 mg/dL LDL Cholesterol 140(A) 0 - 130 mg/dL Blood Venous blood specimen / Unknown Tamara Tao MD LAB BLOOD ORDERABLES Katelyn l Result from Last 3 Months or Most Recently Relevant to Health Maintenance Additional Health Concerns Infection Onset Date Last Indicated ESBL 07/25/2024 07/25/2024 Insurance MEDICAID - [place] [employer] MEDICARE Advance Directives Documents on File Type Date Recorded Patient Passenger Rate Clerk Expl anation Advance Directives and Living Will 08/11/2024 9:29 AM Advance Directives and Living Will 08/04/2024 9:54 AM Health Care Decision (hx) 10/19/2020 Pamela Perez ADVANCE DIRECTIVE Health Care Decision (hx) 09/11/2020 AD WALDRON DIRECTIVE Health Care Decision (hx) 08/14/2019 AD WALDRON DIRECTIVE Health Care Decision (hx) 08/14/2019 AD WALDRON DIRECTIVE Health Care Decision (hx) 08/14/2019 AD WALDRON DIRECTIVE Health Care Decision (hx) 08/14/2019 AD WALDRON DIRECTIVE Health Care Decision (hx) 08/14/2019 AD WALDRON DIRECTIVE Health Care Decision (hx) 08/14/2019 AD WALDRON DIRECTIVE Health Care Decision (hx) 08/14/2019 AD WALDRON DIRECTIVE Health Care Decision (hx) 08/14/2019 AD WALDRON DIRECTIVE Health Care Decision (hx) 08/14/2019 AD WALDRON DIRECTIVE Health Care Decision (hx) 08/14/2019 AD WALDRON DIRECTIVE * Full Code - Default (Latest Code Status on File) Date Activated Date Inactivated Comments 08/06/2024 10:41 PM 08/10/2024 11:00 PM This is or lacho is used when code status has not been discussed with the patient, or code status is otherwise unknown/unconfirmed To update the patient's code status, place a code status order. Do not modify or discontinue any currently active code status orders. * Full Code - Default Date Activated Date Inactivated Comments 07/25/2024 7:44 PM 08/02/2024 5:45 PM This is or lacho is used when code status has not been discussed with the patient, or code status is otherwise unknown/unconfirmed To update the patient's code status, place a code status order. Do not modify or discontinue any currently active code status orders. Healthcare Agents on File Name Relationship Healthcare Agent Relationship Communication Pamela Perez Daughter Health Care Agent Care Teams Registered Massage Therapist Relationship Specialty Start Date End Date Physician, No Pcp PCP - General 07/25/24
--- OUTSIDE RECORDS SUMMARY | 2024-10-30 06:33 | XMS_ITS ---
Author Organization [facility] Address [address] [place] [address] Care Team Providers Care Booking Police Officer Name Role Phone Gordo Lanier DO Primary Care Provider Emily Chauhan Unavailable [phone] Allergies No Known Allergies REASON FOR VISIT pcp-03/2024, At Risk Footcare, Skin problem(s) Medications Medication SIG (Take, Route, Frequency, Duration) Notes Start Date End Date Status Sildenafil Citrate 100 MG 1 tablet as needed Orally Once a day Not-Taking metFORMIN HCl 500 MG TK 2 TS PO BID Oral for 90 Not-Taking Afrezza 8 (60)& 12 (30) UNIT U TID UTD Inhalation for 30 Not-Taking Omeprazole 20 MG 2 capsules Orally Once a day Not-Taking Spironolactone 25 MG TK 1 T PO D Oral fo r 30 Not-Taking Carisoprodol 350 MG (Schedule IV Drug) TK 1 T PO FIVE TIMES A DAY Oral for 30 Not-Taking Ergocalciferol 97400 UNIT 1 capsule Orally Once a day Not-Taking Labetalol HCl Not-Ta sen clonazePAM 1 MG (Schedule IV Drug) TK 1 T PO BID Oral for 30 Not-Taking Morphine Sulfate ER 60 MG (Schedule II Drug) TK 2 TS PO BID Oral for 30 Not-Taking MS Contin Not-Taking Toujeo SoloStar 70 units a day Not-Taking Cartia XT 240 MG TK 1 C PO D Oral for 30 Not-Taking Insulin Not-Taking Vitamin D Not-Taking Morphine Not-Taking Ativan PRN Not-Taking Extra Depth Diabetic Shoes with 3 Pair Custom heat-molded multi-density innersoles for 1 year Dx: 06/22/2017 Not-Taking Extra Depth Diabetic Shoes with 3 Pair Custom heat-molded multi-density innersoles for 1 year Dx: 10/25/2020 Not-Taking cloNIDine HCl Not-Ta sen Soma 250 MG 1 tablet as needed Orally Four times a day PRN Active Trulicity Active Antibiotic Not-Takin g Extra Depth Orthopedic Shoes (1 Pair) with Customized Heat Molded Multidensity Innersoles (3 Pair) as directed Dx: NIDDM/Polyneuropathy (E11.42), Hammertoe Foot Deformity (M20.41,M20.42), Preulcerative Skin Lesion(s) (L85.1 07/24/2016 Active Extra Depth Diabetic Shoes with 3 Pair Custom heat-molded multi-density innersoles for 1 year Dx: Not-Taking oxyCODONE HCl 20 MG 1 tablet as needed Orally three times a day Active Sertraline HCl 25 MG 1 tablet Orally Onc e a day Active Lyrica 100 MG 1 capsule Orally Three a day Active Flomax Active Furosemide Active Extra Depth Diabetic Shoes with 3 Pair Custom heat-molded multi-density innersoles for 1 year Dx: Active clonazePAM Active Social History Tobacco Use: Social History Observation [...] Are you an other tobacco user? No Problems Problem Type SNOMED Code ICD Code Onset Dates Problem Status W/U Status Risk Notes Problem Polyneuropathy due to type 2 diabetes mellitus (545091536) Type 2 diabetes mellitus with diabetic polyneuropathy (E11.42) Active confirmed Vital Signs Height 5ft 10in in 09/04/2024 Weight 235 lbs 09/04/2024 BMI 33.72 kg/m2 09/04/2024 Blood pressure systolic 118 mm Hg 09/04/20 24 Blood pressure diastolic 60 mm Hg 024 Procedures Procedure Date Ordered Date Performed Result Body Sit e 58648-ZWYVYJI NAIL, 6 OR MORE 09/04/2024 N/A 99190-NTYL SKIN LESIONS, OVER 4 09/04/2024 N/A 46940- Removal of Foreign Body, Subcut 09/04/2024 N/A Encounters Encounter Location Date Provider Diagnosis [facility] [address] [address] 09/04/2024 Emily Madrid Type 2 diabetes mellitus with diabetic polyneuropathy E11.42 ; Tinea unguium B35.1 ; Puncture wound with foreign body, left foot, initial encounter S91.342A and Unspecified atherosclerosis of nondalton arteries of extremities, bilateral legs I70.203 Assessments Encounter Date Diagnosis (ICD Code) Assessment Notes Treatment Notes Treatment Clinical Notes Section Notes 09/04/2024 Type 2 diabetes mellitus with diabetic polyneuropathy (ICD-10 - E11.42) 09/04/2024 Tinea unguium (ICD-10 - B35.1) 09/04/2024 Puncture wound with foreign body, left foot, initial encounter (ICD-10 - S91.342A) 09/04/2024 Unspecified atherosclerosis of nondalton arteries of extremities, bilateral legs (ICD-10 - I70.203) Plan Of Treatment Pending Test Test Name Order Date 03338-TMMBEDD NAIL, 6 OR MORE 09/04/2024 52696-RCCQ SKIN LESIONS, OVER 4 09/04/20 62877- Removal of Foreign Body, Subcut 1 Next Appt Details Follow Up: 4 Months, Reason: Provider Name:Emily cross, 12/28/2024 03:00:00 PM, [address] [place] [address], [phone], Procedure Notes * Category Sub-Category Detail Notes Foreign Body Removal Anesthesia was not uti lized - NEUROPATHY: patient has medically documented neuropathic condition affecting sensation Procedure The wound was explor ed and the foreign body ( nylon suture) was removed along with devitalized tissue, thru skin and subcutaneous tissue, using sterile 15 blade sharp dissection. A sterile antibiotic ointment dressing was applied and wound care instructions were discussed and dispensed, Patient tolerated procedure well (63165) Location of foreign body As per exam Skin area prepped with al cohol or betadine , procedure performed under aseptic conditions Debride Nail 6-10 Nail debridement Due to the cl inical pathology outlined in the exam findings, performance of this nail treatment is medically necessary as its management by an unskilled/untrained nonprofessional would put this patients foot and overall health at risk. Therefore, debridement to affected nail(s), as described in exam ( TA, T1, T2, T3, T4, T5, T6, T7, T8, T9, ), was performed exclusively by the physician of record to reduce/remove overall nail length, girth, thickness, subungual debris, and necrotic tissue, by manual and/or electrical means through the use of a nail nipper and/or dremel-type roll contour grinder, to a more viable healthy nail plate or bed tissue 6-10 nails in total. Silver nitrate was used for any petechial bleeding as necessary. Definitive antifungal treatment options, both pharmaceutical and surgical, have been reviewed and discussed with the patient. The patient solely prefers the use of intermittent/as needed professional debridement services for their nail condition and understands the need for additional periodic treatments to maintain effectiveness in symptomatic relief - 14963 Keratoma Treatment Parring or Cutting o f Benign Hyperkeratotic Lesion(s) (-57) More than 4 Lesions - Due to the a t risk nature of the patients medical condition as documented in the exam findings, performance of this keratoderma treatment is medically necessary as its management by an unskilled/untrained nonprofessional would put this patients foot and overall health at risk. Therefore, the benign hyperkeratotic lesions, ( 6 ) in total, locations as stated and described in the exam ( sub 1st, 3rd and 5th MPJ B/L ), were pared, and/or cut utilizing a sterile 15 blade, tissue nippers, and/or power dremel instrumentation by the physician of record - 27617 Progress Notes * MINHTORSTENAleksandr ODOB:1950 (74 yo M)Acc No.[id number]:09/04/2024 Progress Note Patient:?Aleksandr PEREZ Megan Provider:?Emily Madrid DPM :1950???Age:74 Y???Sex:Male Edson e:09/04/2024 Address[address] Pcp:Gordo Lanier, DO Subjective: * Chief Complaints: * ???Pcp-t Risk Footca reSkin problem(s) * HPI: ???At Risk footcare:?Pt States Last PCP Visit:?Date?03/21/2024 * ROS:?General/Constitutional:?Nausea?denies.?Vomiting?denies.?Hunger Thirst?denies.?Loss appetite?denies.?Chills?denies.?Fatigue?denies.?Fever?denies.?Night Sweats?denies.?Unexplained weight loss?denies.?Ophthalmologic:?Blurred vision?denies.?Red eye?denies.?HEENTM:?Dentures?denies.?Dizziness?denies.?Glasses/contacts?admits.?Retinopathy?den ies.?Blurred/double vision?denies.?TMJ?denies.?Discharge/drainage?denies.?Implants?admits.?Hard of hearing denies.?Difficulty chewing/swallowing/speaking?denies.?Nose bleeds?denies.?Sore mouth?denies.?Swollen glands?denies.?Respiratory:?On O xygen?denies.?Pneumonia/pleurisy?denies.?Bronchitis?denies.?Emphysema?denies.?Co ughing?denies.?Cough blood?denies.?Shortness of breath?denies.?Wheezing?denies.?Cardiovascular:?Pacemaker?denies.?MVP?denies.?WPW?denies.?CHF?denies.?Heart attack?denies.?Septal defect?denies.?Rapid beat?denies.?Chest pain ?denies.?Atrial Fib.?denies.?Murmur/Palpitations?denies.?Gastrointestinal:?Hemorrhoids?denies.?Stomach/Abdominal pain?denies.?Dark blood stool?denies.?Irritable bowel ?denies.?Constipation?denies.?Diarrhea?denies.?Vomiting?denies.?Hematology:?Swelling?denies.?Bruising?denies.?Bleeding problem?denies.?Genitourinary:?Blood urine?denies.?Frequent/Painfu/urination/bladder control?denies.?Kidney stones?denies.?Infection (UTI)?denies.?Nephropathy?denies.?Musculoskeletal:?Hammertoes?denies.?Bunions?denies.?Scoliosis/kyphosis?denies.?Muscle cramps / walking?admits.?Generalized aches and pains?denies.?Weakness?admits.?Integ.:?Roberts?denies.?Scars?denies.?Corns/calluses?denies.?Ingrown nails?denies.?Painful nails?denies.?Rashes?denies.?Neurologic:?Difficulty sleeping?denies.?Bipolar?denies.?Brain disorder?denies.?Balance t rouble?admits.?Confusion?denies.?Fainting/blackouts?denies.?Headache?denies.?Alirio mors?denies.? * Medical History:? * Surgical History:?spleen 196 0/2001spine rotater cuff 1997/ack wound 1998/ack surgery 07/2018suprapubic surgery 02/22/2019urology/implant sx 12/26/21spinal cord 05/05/22spinal cord 01/06/23amputation of toe 06/05/2024 * Hospitalization/Major Diagno stic Procedure:?[facility] - Kidney Failure, had to be revived 03/29/2016[facility] 03/2018[facility] ambulance collapsed at home 06/2018[facility] [place] back [place]x 07/2018[facility] 07[facility]2019 * Family History:?Mother: [...] alcohol in the past year??No ?Points?0 ?Interpretation?Negative ???Miscellaneous:?Caffeine: no. ?Children: yes, 4. ?Exercise: yes, walking, weightlifting, PT. ?Marital status: . ?Occupation: retired. * Medications:?TakingExtra Dep th Diabetic Shoes with 3 Pair Custom heat-molded multi-density innersoles for 1 year Dx: clonazePAM Flomax Furosemide Lyrica 100 MG Capsule 1 capsule Orally Three a day oxyCODONE HCl 20 MG Tablet 1 tablet as needed Orally three times a day Sertraline HCl 25 MG Tablet 1 tablet Orally Once a day Soma 250 MG Tablet 1 tablet as needed Orally Four times a day , Notes to Pharmacist: PRNTrulicity Extra Depth Orthopedic Shoes (1 Pair) with Customized Heat Molded Multidensity Innersoles (3 Pair) as directed Dx: NIDDM/Polyneuropathy (E11.42), Hammertoe Foot Deformity (M20.41,M20.42), Preulcerative Skin Lesion(s) (L85.1 Taking Extra Depth Diabetic Shoes with 3 Pair Custom heat-molded multi-density innersoles for 1 year Dx: Taking clonazePAM Taking Flomax Taking Furosemide Taking Lyrica 100 MG Capsule 1 capsule Orally Three a day Taking oxyCODONE HCl 20 MG Tablet 1 tablet as needed Orally three times a day Taking Sertraline HCl 25 MG Tablet 1 tablet Orally Once a day Taking Soma 250 MG Tablet 1 tablet as needed Orally Four times a day , Notes to Pharmacist: PRNTaking Trulicity Taking Extra Depth Orthopedic Shoes (1 Pair) with Customized Heat Molded Multidensity Innersoles (3 Pair) as directed Dx: NIDDM/Polyneuropathy (E11.42), Hammertoe Foot Deformity (M20.41,M20.42), Preulcerative Skin Lesion(s) (L85.1 Not-Taking/PRNExtra Depth Diabetic Shoes with 3 Pair Custom heat-molded multi-density innersoles for 1 year Dx: Antibiotic Extra Depth Diabetic Shoes with 3 Pair Custom heat-molded multi-density innersoles for 1 year Dx: Extra Depth Diabetic Shoes with 3 Pair Custom heat-molded multi-density innersoles for 1 year Dx: cloNIDine HCl Morphine Ativan , Notes to Pharmacist: PRNCartia XT 240 MG Capsule Extended Release 24 Hour TK 1 C PO D Oral MS Contin Sakina Stinson , Notes to Pharmacist: 70 units a dayInsulin Vitamin D Labetalol HCl clonazePAM 1 MG Tablet (Schedule IV Drug) TK 1 T PO BID Oral Morphine Sulfate ER 60 MG Tablet Extended Release (Schedule II Drug) TK 2 TS PO BID Oral Carisoprodol 350 MG Tablet (Schedule IV Drug) TK 1 T PO FIVE TIMES A DAY Oral Ergocalciferol 77894 UNIT Capsule 1 capsule Orally Once a day Afrezza 8 (60)& 12 (30) UNIT Powder U TID UTD Inhalation Omeprazole 20 MG Capsule Delayed Release 2 capsules Orally Once a day Sildenafil Citrate 100 MG Tablet 1 tablet as needed Orally Once a day metFORMIN HCl 500 MG Tablet TK 2 TS PO BID Oral Spironolactone 25 MG Tablet TK 1 T PO D Oral Medication List reviewed and reconciled with the patientNot-Taking/PRN Extra Depth Diabetic Shoes with 3 Pair Custom heat-molded multi-density innersoles for 1 year Dx: Not-Taking/PRN Antibiotic Not-Taking/PRN Extra Depth Diabetic Shoes with 3 Pair Custom heat-molded multi-density innersoles for 1 year Dx: Not-Taking/PRN Extra Depth Diabetic Shoes with 3 Pair Custom heat-molded multi-density innersoles for 1 year Dx: Not-Taking/PRN cloNIDine HCl Not-Taking/PRN Morphine Not-Taking/PRN Ativan , Notes to Pharmacist: PRNNot-Taking/PRN Cartia XT 240 MG Capsule Extended Release 24 Hour TK 1 C PO D Oral Not-Taking/PRN MS Contin Not-Taking/PRN Sakina Stinson , Notes to Pharmacist: 70 units a dayNot-Taking/PRN Insulin Not-Taking/PRN Vitamin D Not-Taking/PRN Labetalol HCl Not-Taking/PRN clonazePAM 1 MG Tablet (Schedule IV Drug) TK 1 T PO BID Oral Not-Taking/PRN Morphine Sulfate ER 60 MG Tablet Extended Release (Schedule II Drug) TK 2 TS PO BID Oral Not-Taking/PRN Carisoprodol 350 MG Tablet (Schedule IV Drug) TK 1 T PO FIVE TIMES A DAY Oral Not-Taking/PRN Ergocalciferol 56071 UNIT Capsule 1 capsule Orally Once a day Not-Taking/PRN Afrezza 8 (60)& 12 (30) UNIT Powder U TID UTD Inhalation Not-Taking/PRN Omeprazole 20 MG Capsule Delayed Release 2 capsules Orally Once a day Not-Taking/PRN Sildenafil Citrate 100 MG Tablet 1 tablet as needed Orally Once a day Not-Taking/PRN metFORMIN HCl 500 MG Tablet TK 2 TS PO BID Oral Not-Taking/PRN Spironolactone 25 MG Tablet TK 1 T PO D Oral Medication List reviewed and reconciled with the patient * Allergies:?N.K.D.A.yes[Aller gies Verified] Objective: * Vitals:?Ht: 5ft 10in, Wt:235 , BMI:33.72, Shoe size: 11, BP:118/60mm Hg, BS: noit taken, Ht-cm: 177.8 cm, Wt-k.59 kg. * ???Past Orders: ???Lab:HEMOGLOBIN A1C (GLYCO HEMOGLOBIN) (Order Date - 04/06/2024) (Collection Date & Time - 04/06/2024 11:50 AM) ? Value Reference Range ?TOTAL HEMOGLOBIN (HGBA1C) 4.7 * Examination: ???Ophthalmology Referral: ?DIABETES EYE EXAM?Neurological: ?SENSORY:? Neurological exam demonstrates, reduced light touch sensation, reduced sharp/dull pin prick discrimination , B/L, 5.07 monofilament test performed at plantar aspects of 5 varied sites per foot shows sensation, reduced , B/L.?Nails: ?NAILS are:?Elongated, overgrown, dystrophic, lytic, greater than 3mm thick, discolored and friable with crumbly malodorous subungual debris, TA, T1, T2, T3, T4, T5, T6, T7, T8, T9.?Dermatologic: ?SKIN FINDINGS:?Skin exam reveals Keratotic lesion(s) located at?sub 1st, 3rd and 5th MPJ B/L, Skin distal stump, TA, shows sign(s) of, Puncture Wound extending into the Sub Q WITH evidence of FOREIGN BODY, but without any sign(s) of infection.?Vascular: ?AMPUTATION, NON-TRAUMATIC (A):?Distal hallux TA.?DP PULSES (B):?0/4, B/L.?PT PULSES (B):?0/4, B/L.?CAPILLARY FILL TIME:?3 secs. per digit, B/L.?TROPHIC CONDITION-TEXTURE/ELASTICITY/TURGOR/HAIR GROWTH (B):?normal, B/L.?TEMPERTURE GRADIENT (C):?warm to cool, proximal to distal, B/L.?PIGMENTATION:?normal, B/L.?EDEMA (C):? 1/4, Left, Ankle(s), Leg(s).?TELANGECTASIA:?absent.?VARICOSITIES:?absent.?Orthopedic: ?MUSCLE STRENGTH:?5/5 all groups in a symmetrical fashion, B/L.?General Examination: ?GENERAL APPEARANCE:?Reveals a pleasant, alert, well nourished, well- developed, well hydrated individual, who demonstrates proper attention to hygiene/body habitus, and is in no acute distress, Pt serves as own historian for office visit today.?ORIENTED:?person, place, and time.? Assessment: * Assessment: 1.?Type 2 diabetes mellitus with diabetic polyneuropathy - E11.42 (Primary)???2.?Tinea unguium - B35.1???3.?Puncture wound with foreign body, left foot, initial encounter - S91.342A???4.?Unspecified atherosclerosis of nondalton arteries of extremities, bilateral legs - I70.203??? Plan: * Treatment: 2.?Puncture wound with forei gn body, left foot, initial encounter?Procedure: 64391- Removal of Foreign Body, Subcut * Procedures:?Debride Nail 6-10:?Nail debridement?Due to the clinical pathology outlined in the exam findings, performance of this nail treatment is medically necessary as its management by an unskilled/untrained nonprofessional would put this patients foot and overall health at risk. Therefore, debridement to affected nail(s), as described in exam (? TA, T1, T2, T3, T4, T5, T6, T7, T8, T9, ), was performed exclusively by the physician of record to reduce/remove overall nail length, girth, thickness, subungual debris, and necrotic tissue, by manual and/or electrical means through the use of a nail nipper and/or dremel-type roll contour grinder, to a more viable healthy nail plate or bed tissue 6- 10 nails in total. Silver nitrate was used for any petechial bleeding as necessary. Definitive antifungal treatment options, both pharmaceutical and surgical, have been reviewed and discussed with the patient. The patient solely prefers the use of intermittent/as needed professional debridement services for their nail condition and understands the need for additional periodic treatments to maintain effectiveness in symptomatic relief - 55757.?Foreign Body Removal:?Anesthesia?was not utilized - NEUROPATHY: patient has medically documented neuropathic condition affecting sensation.?Skin?area prepped with alcohol or betadine , procedure performed under aseptic conditions.?Location of foreign body?As per exam.?Procedure?The wound was explored and the foreign body ( nylon suture)? was removed along with devitalized tissue, thru skin and subcutaneous tissue, using sterile 15 blade sharp dissection. A sterile antibiotic ointment dressing was applied and wound care instructions were discussed and dispensed, Patient tolerated procedure well (60480).?Keratoma Treatment:?Parring or Cutting of Benign Hyperkeratotic Lesion(s)?(-57) More than 4 Lesions - Due to the at risk nature of the patients medical condition as documented in the exam findings, performance of this keratoderma treatment is medically necessary as its management by an unskilled/untrained nonprofessional would put this patients foot and overall health at risk. Therefore, the benign hyperkeratotic lesions, ( 6 ) in total, locations as stated and described in the exam ( sub 1st, 3rd and 5th MPJ B/L ), were pared, and/or cut utilizing a sterile 15 blade, tissue nippers, and/or power dremel instrumentation by the physician of record - 70227.? * Procedure Codes:?20247 DEBRI DE NAIL, 6 OR MORE, Modifiers: XS 82384 REMOVAL OF FOOT FOREIGN BODY, Modifiers: XS 22527 TRIM SKIN LESIONS, OVER 4, Modifiers: XS * Follow Up:?4 Months * Images: * Sign off status: Completed true * Provider:?Emily Madrid DPM Date:? Generated for Demian august/Cordell/Boogie on:?10/30/2024 06:33 AM EST History and Physical Notes * HPI (History of Present Illness) Category Sub-Category Detail Notes Category Not es At Risk footcare Pt States Last PCP Visit: Date: 4 Examination Category Sub-Category Detail Notes Category Not es Neurological SENSORY: Neurological exa m demonstrates, reduced light touch sensation, reduced sharp/dull pin prick discrimination , B/L, 5.07 monofilament test performed at plantar aspects of 5 varied sites per foot shows sensation, reduced , B/L Dermatologic SKIN FINDINGS: Skin exam reveal s Keratotic lesion(s) located at sub 1st, 3rd and 5th MPJ B/L, Skin distal stump, TA, shows sign(s) of, Puncture Wound extending into the Sub Q WITH evidence of FOREIGN BODY, but without any sign(s) of infection Orthopedic MUSCLE STRENGTH: 5/5 all groups in a symmetrical fashion, B/L General Examination GENERAL APPEARANCE: Reveals a pleasant, alert, well nourished, well-developed, well hydrated individual, who demonstrates proper attention to hygiene/body habitus, and is in no acute distress, Pt serves as own historian for office visit today ORIENTED: person, place, and t marianne Ophthalmology Referral DIABETES EYE EXAM Procedure Perform ed:: Yes ?Date of Exam Performed: 09/06/2023 Findings of Diabetic Eye Exam:: no retin opathy Vascular DP PULSES (B): 0/4, B/L PT PULSES (B): 0/4, B/L CAPILLARY FILL TIME: 3 secs. per digit, B/L TEMPERTURE GRADIENT (C): warm to cool, p roximal to distal, B/L TROPHIC CONDITION-TEXTURE/ELASTICITY/TURGOR/HAIR GROWTH (B): normal, B/L EDEMA (C): 1/4, Left, Ankle(s), Leg(s) TELANGECTASIA: absent VARICOSITIES: absent PIGMENTATION: normal, B/L AMPUTATION, NON-TRAUMATIC (A): Distal nguyen llux TA Nails NAILS are: Elongated, overg rown, dystrophic, lytic, greater than 3mm thick, discolored and friable with crumbly malodorous subungual debris, TA, T1, T2, T3, T4, T5, T6, T7, T8, T9
[2024-10-30 08:10] LABS: Appearance Urine Clear; Color Urine Yellow; Glucose Urine UA Negative (Negative); Leukocyte Esterase Urine Large (3+) (Negative); Nitrite Urine Negative (Negative); PH 5.5 (5.0-9.0); Specific Gravity - Urine 1.015 (1.005-1.025); UMIC TRIGGER UA YES; Urine Blood Negative (Negative); Urine Ketones Negative (Negative); Urine Protein 100 (2+) mg/dL (Neg-Trace)
[2024-10-30 08:12] LABS: Bacteria Urine Trace (None Seen); Hyaline Casts Urine 0-2 /LPF (0-2); RBC Urine 0-2 /HPF (0-2); Squamous Epithelial Cell Urine 0-2 /HPF (0-2); WBC Urine >50 /HPF (0-5)
== END 2024-10-30 06:28 | disposition home or self-care (01) ==
LOC: HO.MMNH3L 06:27
PROVIDERS: Visit Provider Nurse Practitioner
DX: N17.9 Acute kidney failure, unspecified (principal); R82.90 Unspecified abnormal findings in urine
CPT/HCPCS: 81001; 87086; 87088; 87186

== ENCOUNTER 2024-11-03 05:23 | Outpatient (REF) | payer MEDICARE, MEDICAID, SELFPAY ==
--- OUTSIDE RECORDS SUMMARY | 2024-11-03 05:26 | XMS_ITS | Encounter Summary ---
Author Organization [facility], Address [address] [place] [address] Phone Care Team Providers Care Retail Operations Manager Name Role Phone Maico Garcia Primary Care Provider [phone] Encounter Details Date Type Department Care Team (Late st Contact Info) Description 10/01/2022 Office Communication [facility], [address] [place] [phone] Jose M Martinez MD [address] [place] [address] Social History Tobacco Use Types [...] - 10/02/2022 8:34 AM EST Faxed to [phone] documented in this encounter Plan of Treatment Not on file documented as of this encounter Visit Diagnoses Not on filedocumented in this encounter Care Teams Retail Operations Manager Relationship Specialty Start Date End Date Maico Garcia PA [address] [place] [id number] PCP - General Physician Stock Associate 08/03/22 documented as of this encounter
--- OUTSIDE RECORDS SUMMARY | 2024-11-03 05:26 | XMS_ITS | Clinical Summary ---
Author Organization [facility], Address [address] [place] [address] Phone Care Team Providers Care V Block Saw Operator Name Role Phone Maico Garcia Primary Care Provider [phone] Allergies No known active allergies Medications amLODIPine [...] Problem Noted Date Diagnosed Date Hyperkalemia 10/01/2022 correction use of nonsteroidal anti-inflammatorie s 10/01/2022 Type [...] age to complete this topic Insurance MEDICARE [facility] MEDICARE MEDICAID [place] Care Teams V Block Saw Operator Relationship Specialty Start Date End Date Maico Garcia PA [address] [place] [address] [phone] PCP - General Physician Police Worker 08/03/22
--- OUTSIDE RECORDS SUMMARY | 2024-11-03 05:27 | XMS_ITS ---
[facility] Address [address] [place] [address] Care Team Providers Care Negative Restorer Name Role Phone Gordo Lanier DO Primary Care Provider Emily Chauhan Unavailable [phone] BrooksJames Unavailable [phone] Allergies No Known Allergies REASON FOR VISIT [...] innersoles for 1 year Dx: Active Ergocalciferol 56628 UNIT 1 capsule Orally Once a day [...] 024 Encounters Encounter Location Date Provider Diagnosis [facility] [address] [place] [address] 05/24/2024 James Brooks Tinea unguium B35.1 ; [...] right foot M21.371 and Unspecified atherosclerosis of [place] arteries of extremities, bilateral legs I70.203 Assessments [...] (ICD-10 - M21.371) 05/24/2024 Unspecified atherosclerosis of [place] arteries of extremities, bilateral legs (ICD-10 - I70.203) Plan Of Treatment Medication Medication Name Sig Start Date Stop Date Notes Extra Depth Diabetic Shoes w ith 3 Pair Custom heat-molded multi-density innersoles for 1 year Dx: Next Appt Details Follow Up: 3 Months, Reason: Provider Name:Emily cross, 12/28/2024 03:00:00 PM, [address] [place] [address], [place], [address], Procedure Notes * Category Sub-Category Detail Notes [...] as necessary. Patient chooses, no pharmaceutical tx (85202) Keratoma Treatment Parring or Cutting o f Benign Hyperkeratotic Lesion(s) 67226 (2-4 Lesions) - The Benign hyperkeratotic lesions, as described above were pared, and/or cut utilizing a sterile #15 blade, tissue nippers, and/or dremel Progress Notes * Aleksandr PEREZ ODOB:1950 (73 yo M)Acc No.[id number]:05/24/2024 Progress Note Patient:?Aleksandr Perez Provider:?James Brooks DPM :1950???Age:73 Y???Sex:Male Edson e:05/24/2024 Address:[place] [address] Pcp:Gordo Lanier DO Subjective: * Chief Complaints: * ??? Painful nail(s) aggrevat ed by shoes and causing difficulty standing/walking. * HPI: ???Painful Nails:?Pt States Last PCP Visit:?Date:?11/26/2023 ?Misc:?recent hospitalization at [facility] 11/11/[address] Campos --14th spinal sx; [...] 07/2018[facility] 7 [facility] stay, [facility] for 6 weeks 07/2019 * Family [...] PO FIVE TIMES A DAY Oral Ergocalciferol 67426 UNIT Capsule 1 capsule Orally Once a [...] FIVE TIMES A DAY Oral Not-Taking/PRN Ergocalciferol 10560 UNIT Capsule 1 capsule Orally Once a [...] more severe than left.?Ophthalmology Referral: ?DIABETES EYE EXAM?Diabetic Retinopathy Screening:?Yes 04/13/2022?General Examination: ?GENERAL APPEARANCE:?Reveals a pleasant, alert, well nourished, well developed, well hydrated individual, who demonstrates proper attention to hygene/body habitus, and is in no acute distress.?ORIENTED:?person, place, and time.?FOOT EXAM:?Lower Extremity Neurological Exam performed:?Yes ?Visual exam of foot performed:?Yes ?Date?05/24/2024 ?Sensory testing performed:?sensations diminished ?Pedal pulse taking performed:?1+??? 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 [...] as necessary. Patient chooses, no pharmaceutical tx (03493).?Keratoma Treatment:?Parring or Cutting of Benign Hyperkeratotic Lesion(s)?34676 (2-4 Lesions) - The Benign hyperkeratotic lesions, as described above were pared, and/or cut utilizing a sterile #15 blade, tissue nippers, and/or dremel.? * Procedure Codes:?25690 DEBRI DE NAIL, 6 OR MORE, Modifiers: XS 39284 TRIM SKIN LESIONS, 2 TO 4, Modifiers: XS * Follow Up:?3 Months * Images: * Sign off status: Completed true * Provider:?James Brooks DPM Date:? 024 Generated for Demian august/Cordell/Boogie on:?11/03/2024 05:26 AM EST History and Physical Notes * HPI (History of Present Illness) Category Sub-Category Detail Notes Category Not es Painful Nails Misc: recent hospitali zation at [facility] 11/11/[address] Campos --14th spinal sx; [...]
--- OUTSIDE RECORDS SUMMARY | 2024-11-03 05:27 | XMS_ITS ---
Author Organization [facility] Address [address] [place] [address] Care Team Providers Care Restaurant Assistant Name Role Phone Gordo Lanier DO Primary Care Provider Emily Chauhan [phone] Encounters Encounter Location Date Provider Diagnosis [address] [address] 09/04/2024 Emily Madrid Plan Of Treatment Next Appt Details Provider Name:Emily cross, 12/28/2024 03:00:00 PM, [address] [place] [address], [phone], Progress Notes * Aleksandr PEREZ ODOB:1950 (74 yo M)Acc No.[id number]:09/04/2024 Progress Note Patient:?Aleksandr PEREZ Megan Provider:?Emily Madrid DPM :1950???Age:74 Y???Sex:Male Edson e:09/04/2024 Address:[place] [address], [place], [place] Pcp:Gordo Lanier DO Subjective: * Chief Complaints: [...] Madrid DPM Date:?1 Generated for Demian august/Cordell/Robertoitting on:?11/03/2024 05:26 AM EST
--- OUTSIDE RECORDS SUMMARY | 2024-11-03 05:27 | XMS_ITS ---
Author Organization [facility] Address [address] [facility] [place] [address] Care Team Providers Care Rn Supplemental Name Role Phone Gordo Lanier DO Primary Care Provider Emily Chauhan Unavailable [phone] Allergies No Known Allergies REASON FOR VISIT [...] A DAY Oral for 30 Not-Taking Ergocalciferol 03185 UNIT 1 capsule Orally Once a day [...] Polyneuropathy due to type 2 diabetes mellitus ([id number]) Type 2 diabetes mellitus with diabetic polyneuropathy (E11.42) Active confirmed Vital Signs Height 5ft 10in in 09/04/2024 Weight 235 lbs 09/04/2024 BMI 33.72 kg/m2 09/04/2024 Blood pressure systolic 118 mm Hg 09/04/20 24 Blood pressure diastolic 60 mm Hg 024 Procedures Procedure Date Ordered Date Performed Result Body Sit e 00276-ATPJBDN NAIL, 6 OR MORE 09/04/2024 N/A 07249-VBWA SKIN LESIONS, OVER 4 09/04/2024 N/A 94558- Removal of Foreign Body, Subcut 09/04/2024 N/A Encounters Encounter Location Date Provider Diagnosis [facility] [address] [address] 09/04/2024 Emily Madrid Type 2 diabetes mellitus with diabetic polyneuropathy E11.42 ; Tinea unguium B35.1 ; Puncture wound with foreign body, left foot, initial encounter S91.342A and Unspecified atherosclerosis of [place] arteries of extremities, bilateral legs I70.203 Assessments Encounter Date Diagnosis (ICD Code) Assessment Notes Treatment Notes Treatment Clinical Notes Section Notes 09/04/2024 Type 2 diabetes mellitus with diabetic polyneuropathy (ICD-10 - E11.42) 09/04/2024 Tinea unguium (ICD-10 - B35.1) 09/04/2024 Puncture wound with foreign body, left foot, initial encounter (ICD-10 - S91.342A) 09/04/2024 Unspecified atherosclerosis of [place] arteries of extremities, bilateral legs (ICD-10 - I70.203) Plan Of Treatment Pending Test Test Name Order Date 75546-WZZOQXJ NAIL, 6 OR MORE 09/04/2024 86991-AWKF SKIN LESIONS, OVER 4 09/04/20 04073- Removal of Foreign Body, Subcut 1 Next Appt Details Follow Up: 4 Months, Reason: Provider Name:Emily cross, 12/28/2024 03:00:00 PM, [address] [place] [address], [address], Procedure Notes * Category Sub-Category Detail Notes [...] discussed and dispensed, Patient tolerated procedure well (75511) Location of foreign body As per exam [...] use of a nail nipper and/or dremel-type grinder gear, to a more viable healthy nail plate [...] to maintain effectiveness in symptomatic relief - 95363 Keratoma Treatment Parring or Cutting o f [...] instrumentation by the physician of record - 51919 Progress Notes * MINHTORSTENAleksandr ODOB:1950 (74 yo M)Acc No.[id number]:09/04/2024 Progress Note Patient:?Aleksandr PEREZ Megan Provider:?Emily Madrid DPM :1950???Age:74 Y???Sex:Male Edson e:09/04/2024 Address:[address] Pcp:Gordo Lanier, DO Subjective: * Chief Complaints: [...] - Kidney Failure, had to be revived 03/29/2016[facility] 03/2018[facility] collapsed at home 06/2018[facility] back sx 07/2018[facility] stay, [facility] for 6 weeks 07/2019 * Family History:?Mother: [...] PO FIVE TIMES A DAY Oral Ergocalciferol 58525 UNIT Capsule 1 capsule Orally Once a [...] FIVE TIMES A DAY Oral Not-Taking/PRN Ergocalciferol 18178 UNIT Capsule 1 capsule Orally Once a [...] 4.7 * Examination: ???Ophthalmology Referral: ?DIABETES EYE EXAM?Procedure Performed:?Yes ?Date of Exam Performed?09/06/2023 ?Findings of Diabetic Eye Exam:?no retinopathy?Neurological: ?SENSORY:? Neurological exam demonstrates, reduced light touch [...] foot, initial encounter - S91.342A???4.?Unspecified atherosclerosis of [place] arteries of extremities, bilateral legs - I70.203??? Plan: * Treatment: 2.?Puncture wound with forei gn body, left foot, initial encounter?Procedure: 05708- Removal of Foreign Body, Subcut * Procedures:?Debride [...] use of a nail nipper and/or dremel-type grinder gear, to a more viable healthy nail plate [...] to maintain effectiveness in symptomatic relief - 69129.?Foreign Body Removal:?Anesthesia?was not utilized - NEUROPATHY: patient [...] discussed and dispensed, Patient tolerated procedure well (10320).?Keratoma Treatment:?Parring or Cutting of Benign Hyperkeratotic Lesion(s)?(-57) [...] instrumentation by the physician of record - 01894.? * Procedure Codes:?83986 DEBRI DE NAIL, 6 OR MORE, Modifiers: XS 43474 REMOVAL OF FOOT FOREIGN BODY, Modifiers: XS 17001 TRIM SKIN LESIONS, OVER 4, Modifiers: XS * Follow Up:?4 Months * Images: * Sign off status: Completed true * Provider:?Emily Madrid DPM Date:?1 Generated for Demian august/Cordell/Boogie on:?11/03/2024 05:27 AM EST History and Physical Notes * [...]
--- OUTSIDE RECORDS SUMMARY | 2024-11-03 05:27 | XMS_ITS | Clinical Summary ---
Author Organization [facility] Address [address] [place] [address] Phone Care Team Providers Care Geospatial Image Analyst Name Role Phone Physician, No Pcp Primary [...] Team Description 08/15/2024 Telephone Orthopedic Surgery - [place] [address] [address] Neftali Laguerre DPM order 08/06/2024 1:29 PM EST - 08/10/2024 7:35 PM EST Hospital Encounter [facility] [address] [place] [address] Roland Kauffman MD Jones, Christopher, MD Zipagan, James T, MD Kulkarni, John A, MD Hypoxia (Primary Dx); Troponin I above reference range; SIRS (systemic inflammatory response syndrome) ([facility]); Troponin level elevated; Bilateral lower extremity edema; Sepsis ([facility]) Discharge Disposition: Usp Facility from Last 3 Months Surgical History Surgery Date Site/Laterality Comments OTHER SURGICAL HISTORY PROCEDURE:SPLENECTOMY BACK SURGERY PROCEDURE:BACK SURGERY, 16 back surgeries APPENDECTOMY CHOLECYSTECTOMY ROTATOR CUFF REPAIR Bilateral TOE AMPUTATION Left left hallux Medical History Medical History Date Comments GERD (gastroesophageal reflux disease) DX:GERD (gastroesophageal reflux disease) Hypertension DX:Hypertension Anxiety DX:Anxiety Depression DX:Depression Diabetes mellitus ([facility]) DX:D iabetes mellitus ([facility]) Chronic kidney disease BPH (benign prostatic hyperplasia) Peripheral vascular disease ([facility]) GERD (gastroesophageal reflux disease) Diabetes, polyneuropathy ([facility]) Spinal stenosis Neurogenic bladder Family History Medical [...] Record ed Within the last 3 months, ho w many times did you visit the [...] care for your loved ones. For example, childhood teacher or elderly care for an older adult? [...] STAT 08/06/2024 5:15 PM EST Hypoxia RAPID [id number] SCREENING, MOLECULAR STAT 08/06/2024 4:45 PM EST [...] BLOOD Routine 08/06/2024 1: 31 PM EST HEMOGLOBIN A1C Add-On 07/26/2024 5:37 AM EST LIPID PANEL Routine 06/05/1999 from Last 3 Months or Most Recently Relevant to Health Maintenance Results * POCT Glucose, blood (08/10/2024 10:59 AM EST) Only the most recent of16 resultswithin the time period is included. [facility] Glucose POCT 92 70 - 100 mg/dL 08/10/2024 11:00 AM [facility] Blood Capillary blood specimen / Unknown 08/10/2024 10:59 AM EST 08/10/2024 11:01 AM EST John Kulkarni MD LAB POINT OF CARE TE ST DOCKED DEVICE UNSOLICITED RESULTS Final Result [facility] [address] [place] [address], * (ABNORMAL) CBC auto differential (08/10/2024 6:39 AM EST) Only the most recent of5 resultswithin the time period is included. Pathologist [facility] WBC 10.3 4.8 - 10.8 K/mcL LAB HEMETOLOGY METHOD 08/10/2024 7:34 AM [facility] RBC 2.90(L) 4.50 - 5.50 M/mcL LAB HEMETOLOGY METHOD 08/10/2024 7:34 AM [facility] Hemoglobin 8.8(L) 13.5 - 17.5 g/dL LAB HEMETOLOGY METHOD 08/10/2024 7:34 AM [facility] Hematocrit 26.5(L) 42.0 - 54.0 % LAB HEMETOLOGY METHOD 08/10/2024 7:34 AM [facility] MCV 92.0 79.0 - 98.0 FL LAB HEMETOLOGY METHOD 08/10/2024 7:34 AM [facility] MCH 30.6 27.0 - 32.0 pcg LAB HEMETOLOGY METHOD 08/10/2024 7:34 AM [facility] MCHC 33.2 32.0 - 37.0 g/dL LAB HEMETOLOGY METHOD 08/10/2024 7:34 AM [facility] RDW 13.2 11.0 - 15.0 % LAB HEMETOLOGY METHOD 08/10/2024 7:34 AM [facility] Platelets 331 130 - 400 K/mcL LAB HEMETOLOGY METHOD 08/10/2024 7:34 AM [facility] MPV 10.5 7.0 - 11.0 FL LAB HEMETOLOGY METHOD 08/10/2024 7:34 AM [facility] NRBC 0.0 <1.0 % LAB HEMETOLOGY METHOD 08/10/2024 7:34 AM [facility] NRBC Absolute 0.00 <0.10 K/mcL LAB HEMETOLOGY METHOD 08/10/2024 7:34 AM [facility] Neutrophils Relative 56.8 % LAB HEMETOLOGY METHOD 08/10/2024 7:34 AM [facility] Lymphocytes Relative 22.4 % LAB HEMETOLOGY METHOD 08/10/2024 7:34 AM [facility] Monocytes Relative 13.1 % LAB HEMETOLOGY METHOD 08/10/2024 7:34 AM [facility] Eosinophils Relative 5.7 % LAB HEMETOLOGY METHOD 08/10/2024 7:34 AM [facility] Basophils Relative 1.5 % LAB HEMETOLOGY METHOD 08/10/2024 7:34 AM EST [facility] Immature Granulocytes Relative 0.5 % LAB HEMETOLOGY METHOD 08/10/2024 7:34 AM [facility] Neutrophils Absolute 5.84 1.50 - 7.00 K/[facility] LAB HEMETOLOGY METHOD 08/10/2024 7:34 AM [facility] Lymphocytes Absolute 2.31 1.00 - 5.00 K/mcL LAB HEMETOLOGY METHOD 08/10/2024 7:34 AM [facility] Monocytes Absolute 1.35(H) 0.20 - 1.00 K/mcL LAB HEMETOLOGY METHOD 08/10/2024 7:34 AM [facility] Eosinophils Absolute 0.59(H) 0.00 - 0.50 K/mcL LAB HEMETOLOGY METHOD 08/10/2024 7:34 AM [facility] Basophils Absolute 0.15 0.00 - 0.20 K/mcL LAB HEMETOLOGY METHOD 08/10/2024 7:34 AM [facility] Immature Granulocytes Absolute 0.05(H) 0.00 - 0.03 K/mcL LAB HEMETOLOGY METHOD 08/10/2024 7:34 AM [facility] Blood Venous blood specimen / Unknown Venipuncture / Unknown 08/10/2024 6:39 AM EST 08/10/2024 7:05 AM EST us John Kulkarni MD LAB BLOOD ORDERABLES Final Re sult [facility] [address] [place] [address], * (ABNORMAL) Basic metabolic panel (08/10/2024 6:39 AM EST) Only the most recent of4 resultswithin the time period is included. Sodium 143 133 - 145 mmol/L LAB CHEMISTRY METHOD 08/10/2024 7:50 AM [facility] Potassium 3.6 3.5 - 5.5 mmol/L LAB CHEMISTRY METHOD 08/10/2024 7:50 AM [facility] Chloride 113(H) 96 - 110 mmol/L LAB CHEMISTRY METHOD 08/10/2024 7:50 AM [facility] CO2 25 21 - 32 mmol/L LAB CHEMISTRY METHOD 08/10/2024 7:50 AM [facility] Anion Gap 5 3 - 11 LAB CHEMISTRY METHOD 08/10/2024 7:50 AM [facility] Glucose 78 70 - 100 mg/dL LAB CHEMISTRY METHOD 08/10/2024 7:50 AM [facility] BUN 29(H) 5 - 25 mg/dL LAB CHEMISTRY METHOD 08/10/2024 7:50 AM [facility] Creatinine 1.93(H) 0.70 - 1.30 mg/dL LAB CHEMISTRY METHOD 08/10/2024 7:50 AM [facility] eGFR 37(L) >=60 mL/min/1. 73m2 LAB CHEMISTRY METHOD 08/10/2024 7:50 AM [facility] Comment:Calculation based on the??Chronic Kidney Disease Epidemiology Collaboration (CKD-EPI) equation refit??without adjustment for race. BUN/Creatinine Ratio 15.0 LAB CHEMISTRY METHOD 08/10/2024 7:50 AM [facility] Calcium 8.6 8.5 - 10.5 mg/dL LAB CHEMISTRY METHOD 08/10/2024 7:50 AM [facility] Blood Venous blood specimen / Unknown Venipuncture / Unknown 08/10/2024 6:39 AM EST 08/10/2024 7:05 AM EST us John Kulkarni MD LAB BLOOD ORDERABLES Final Re sult [facility] [address] [place] [address], [place] [phone] * NM Tumor Localization Whole Body 1 [...] Signed Date: 08/09/2024 10:47 ET Workstation ID: [id number] Transcribed By: Self Edit Transcribed Date: 08/09/2024 [...] Signed Date: 08/09/2024 10:47 ET Workstation ID: [id number] Transcribed By: Self Edit Transcribed Date: 08/09/2024 10:43 ET John Kulkarni MD IMG NM PROCEDURES Final Resul t * (ABNORMAL) Procalcitonin (08/09/2024 6:17 AM EST) Only the most recent of2 resultswithin the time period is included. Procalcitonin 1.37(H) <=0.16 ng/mL LAB CHEMISTRY METHOD 08/09/2024 3:18 PM EST [facility] Blood Venous blood specimen / Unknown Venipuncture / Unknown 08/09/2024 6:17 AM EST 08/09/2024 7:07 AM EST Narrative [facility] - 08/09/2024 3:18 PM EST Procalcitonin [...] if any concentrations <2.0 ng/mL are obtained. Ryanne Evans MD LAB BLOOD ORDERABLES Final Resul t Performing Organization Address City/[facility] Co de Phone Number [facility] [address] [place] [address], * Sedimentation rate (08/09/2024 6:17 AM EST) Only the most recent of3 resultswithin the time period is included. Sed Rate 18 0 - 20 mm/hr LAB HEMETOLOGY METHOD 08/09/2024 11:38 AM EST [facility] Blood Venous blood specimen / Unknown Venipuncture / Unknown 08/09/2024 6:17 AM EST 08/09/2024 7:08 AM EST us Ryanne Evans MD LAB BLOOD ORDERABLES Final Resul t Performing Organization Address [facility] de Phone Number [facility] [address] [place] [address], * (ABNORMAL) C-reactive protein (08/09/2024 6:17 AM EST) Only the most recent of3 resultswithin the time period is included. C-Reactive Protein 2.18(H) <=0.50 mg/dL LAB CHEMISTRY METHOD 08/09/2024 1:46 PM EST [facility] Blood Venous blood specimen / Unknown Venipuncture / Unknown 08/09/2024 6:17 AM EST 08/09/2024 7:07 AM EST us Ryanne Evans MD LAB BLOOD ORDERABLES Final Resul t Performing Organization Address [facility] Co de Phone Number [facility] [address] [place] [address], [place] [phone] * (ABNORMAL) Magnesium (08/09/2024 6:17 AM EST) Magnesium 1.6(L) 1.9 - 2.6 mg/dL LAB CHEMISTRY METHOD 08/09/2024 1:46 PM EST [facility] Blood Venous blood specimen / Unknown Venipuncture / Unknown 08/09/2024 6:17 AM EST 08/09/2024 7:07 AM EST us John Kulkarni MD LAB BLOOD ORDERABLES Final Re sult [facility] [address] [place] [address], * Respiratory virus panel molecular study (08/08/2024 2:57 AM EST) Pathologist [facility] Adenovirus Detection by PCR Not Detected Not Detected LAB MICROBIOLOGY METHOD 08/08/2024 9:46 AM [facility] Influenza A PCR Not Detected Not Detected LAB MICROBIOLOGY METHOD 08/08/2024 9:46 AM [facility] Influenza B PCR Not Detected Not Detected LAB MICROBIOLOGY METHOD 08/08/2024 9:46 AM [facility] Coronavirus 229E Not Detected Not Detected LAB MICROBIOLOGY METHOD 08/08/2024 9:46 AM [facility] Coronavirus HKU1 Not Detected Not Detected LAB MICROBIOLOGY METHOD 08/08/2024 9:46 AM [facility] Coronavirus OC43 Not Detected Not Detected LAB MICROBIOLOGY METHOD 08/08/2024 9:46 AM [facility] Coronavirus NL63 Not Detected Not Detected LAB MICROBIOLOGY METHOD 08/08/2024 9:46 AM [facility] Parainfluenza Virus 1 Not Detected Not Detected LAB MICROBIOLOGY METHOD 08/08/2024 9:46 AM [facility] Parainfluenza Virus 2 Not Detected Not Detected LAB MICROBIOLOGY METHOD 08/08/2024 9:46 AM [facility] Parainfluenza Virus 3 Not Detected Not Detected LAB MICROBIOLOGY METHOD 08/08/2024 9:46 AM [facility] Parainfluenza Virus 4 Not Detected Not Detected LAB MICROBIOLOGY METHOD 08/08/2024 9:46 AM [facility] RSV PCR Not Detected Not Detected LAB MICROBIOLOGY METHOD 08/08/2024 9:46 AM [facility] Human Metapneumovirus A and B Not Detected Not Detected LAB MICROBIOLOGY METHOD 08/08/2024 9:46 AM [facility] Rhinovirus/Entero virus Not Detected Not Detected LAB MICROBIOLOGY METHOD 08/08/2024 9:46 AM [facility] Bordetella pertussis Not Detected Not Detected LAB MICROBIOLOGY METHOD 08/08/2024 9:46 AM [facility] Bordetella parapertussis Not Detected Not Detected LAB MICROBIOLOGY METHOD 08/08/2024 9:46 AM [facility] Mycoplasma pneumo by PCR Not Detected Not Detected LAB MICROBIOLOGY METHOD 08/08/2024 9:46 AM [facility] Chlamydia pneumoniae Not Detected Not Detected LAB MICROBIOLOGY METHOD 08/08/2024 9:46 AM [facility] SARS COV-2 Not Detected Not Detected LAB MICROBIOLOGY METHOD 08/08/2024 9:46 AM [facility] Swab Both anterior nares / Unknown Non-blood Collection / Unknown 08/08/2024 2:57 AM EST 08/08/2024 8:52 AM EST [facility] - 08/08/2024 9:46 AM EST Testing was performed using the [employer] Respiratory Pathogen PCR Assay. All results must [...] MICROBIOLOGY - GENERAL O RDERABLES Final Result [facility] [address] [place] [address], [place] [phone] * (ABNORMAL) TRANSTHORACIC ECHOCARDIOGRAM (TTE) COMPLETE W/ CONTRAST (08/07/2024 10:43 AM EST) Left Atrium Minor [place] 6.5 cm CV PACS Left Atrium Major [place] 6.9 cm CV PACS LA Area Sys [...] Volume 123 mL CV PACS MV Deceleration [place] 4.6 m/s2 CV PACS E Wave Deceleration [...] S' 11 cm/s CV PACS RA Major [place] 5.5 cm CV PACS RA Major [place] Index 2.5 2.1 - 2.7 cm/m2 CV [...] of4 resultswithin the time period is included. Pathologist [facility] High Sensitivity Troponin I 3,643(HH) <=79 ng/L LAB CHEMISTRY METHOD 08/07/2024 7:[address] [facility] Blood Venous blood specimen / Unknown Venipuncture / Unknown 08/07/2024 5:52 AM EST 08/07/2024 6:44 AM EST Narrative [facility] - 08/07/2024 7:32 AM EST High levels of biotin in samples may falsely decrease hsTroponin values. ??Use caution when interpreting hsTroponin results in patients taking biotin who exhibit renal impairment (eGFR <60) or in patients taking more than 20 mg/day of biotin. us Kimmy MCCAIN LAB BLOOD ORDERABLES Final R esult [facility] [address] [place] [address], [place] [phone] * (ABNORMAL) Manual differential (08/07/2024 5:52 AM EST) Only the most recent of2 resultswithin the time period is included. Neutrophils % 83.0 % LAB HEMETOLOGY METHOD 08/07/2024 7:46 AM [facility] Lymphocytes % 6.0 % LAB HEMETOLOGY METHOD 08/07/2024 7:46 AM [facility] Monocytes % 6.0 % LAB HEMETOLOGY METHOD 08/07/2024 7:46 AM [facility] Eosinophils % 4.0 % LAB HEMETOLOGY METHOD 08/07/2024 7:46 AM [facility] Basophils % 0.0 % LAB HEMETOLOGY METHOD 08/07/2024 7:46 AM [facility] Metamyelocytes % 1.0(H) % LAB HEMETOLOGY METHOD 08/07/2024 7:46 AM [facility] Myelocytes % 1.0(H) % LAB HEMETOLOGY METHOD 08/07/2024 7:46 AM [facility] Neutrophils Absolute Manual 12.78(H) 1.50 - 7.00 K/mcL LAB HEMETOLOGY METHOD 08/07/2024 7:46 AM [facility] Lymphocytes Absolute 0.92(L) 1.00 - 5.00 K/[facility] LAB HEMETOLOGY METHOD 08/07/2024 7:46 AM EST [facility] Monocytes Absolute Manual 0.92 0.20 - 1.00 K/mcL LAB HEMETOLOGY METHOD 08/07/2024 7:46 AM [facility] Eosinophils Absolute Manual 0.62(H) 0.00 - 0.50 K/[facility] LAB HEMETOLOGY METHOD 08/07/2024 7:46 AM [facility] Basophils Absolute Manual 0.00 0.00 - 0.20 K/[facility] LAB HEMETOLOGY METHOD 08/07/2024 7:46 AM [facility] Metamyelocytes Absolute Manual 0.15(H) 0.00 - 0.00 K/mcL LAB HEMETOLOGY METHOD 08/07/2024 7:46 AM [facility] Myelocytes Absolute Manual 0.15(H) 0.00 - 0.00 K/[facility] LAB HEMETOLOGY METHOD 08/07/2024 7:46 AM [facility] Rbc Morphology Present( A) Consistent with indices, Normal for LAB HEMETOLOGY METHOD 08/07/2024 7:46 AM [facility] Comment:RBC: Morphology agre es with CBC Platelet Morphology - WAM See Note(A) Normal LAB HEMETOLOGY METHOD 08/07/2024 7:46 AM [facility] Comment:PLT: Normal Schistocytes Present < 5%(A) (none) LAB HEMETOLOGY METHOD 08/07/2024 7:46 AM [facility] Blood Venous blood specimen / Unknown Venipuncture / Unknown 08/07/2024 5:52 AM EST 08/07/2024 6:44 AM EST us Bud Davalos MD LAB BLOOD ORDERABLES Final Result [facility] [address] [place] [address], [place] [phone] * Phosphorus (08/07/2024 5:52 AM EST) Phosphorus 3.1 2.5 - 4.5 mg/dL LAB CHEMISTRY METHOD 08/07/2024 7:30 AM EST [facility] Blood Venous blood specimen / Unknown Venipuncture / Unknown 08/07/2024 5:52 AM EST 08/07/2024 6:44 AM EST Kimmy MCCAIN LAB BLOOD ORDERABLES Final R esult [facility] [address] [place] [address], [place] [phone] * Creatine kinase (08/07/2024 5:52 AM EST) [facility] Total CK 110 22 - 269 unit/L LAB CHEMISTRY METHOD 08/07/2024 8:24 AM EST [facility] Blood Venous blood specimen / Unknown Venipuncture / Unknown 08/07/2024 5:52 AM EST 08/07/2024 6:44 AM EST us John Kulkarni MD LAB BLOOD ORDERABLES Final Re sult [facility] [address] [place] [address], [place] [phone] * Vascular US duplex lower extremity venous [...] Signed Date: 08/07/2024 03:29 ET Workstation ID: [id number] Transcribed By: Self Edit Transcribed Date: 08/07/2024 [...] Signed Date: 08/07/2024 03:29 ET Workstation ID: [id number] Transcribed By: Self Edit Transcribed Date: 08/07/2024 [...] Signed Date: 08/07/2024 07:46 ET Workstation ID: [id number] Transcribed By: Self Edit Transcribed Date: 08/07/2024 [...] Signed Date: 08/07/2024 07:46 ET Workstation ID: [id number] Transcribed By: Self Edit Transcribed Date: 08/07/2024 07:40 ET us Roland Kauffman MD IMG XR PROCEDURES Final Resu lt * (ABNORMAL) Urinalysis with reflex microscopic and culture (08/06/2024 6:01 PM EST) Specific [place] Urine 1.025 1.003 - 1.030 LAB URINALYSIS - AUTOMATED METHOD 08/06/2024 7:38 PM [facility] pH, Urine 6.0 5.0 - 8.0 pH LAB URINALYSIS - AUTOMATED METHOD 08/06/2024 7:38 PM [facility] Leukocytes, Urine Small(A) Negative LAB URINALYSIS - AUTOMATED METHOD 08/06/2024 7:38 PM [facility] Nitrite, Urine Negative Negative LAB URINALYSIS - AUTOMATED METHOD 08/06/2024 7:38 PM [facility] Protein, Urine 100(A) <=Trace mg/dL LAB URINALYSIS - AUTOMATED METHOD 08/06/2024 7:38 PM [facility] Glucose, Urine Negative Negative mg/dL LAB URINALYSIS - AUTOMATED METHOD 08/06/2024 7:38 PM [facility] Ketones, Urine Negative Negative mg/dL LAB URINALYSIS - AUTOMATED METHOD 08/06/2024 7:38 PM [facility] Urobilinogen , Urine 0.2 0.2 - 1.0 mg/dL LAB URINALYSIS - AUTOMATED METHOD 08/06/2024 7:38 PM [facility] Bilirubin, Urine Negative Negative LAB URINALYSIS - AUTOMATED METHOD 08/06/2024 7:38 PM [facility] Blood, Urine Moderate(A) Negative LAB URINALYSIS - AUTOMATED METHOD 08/06/2024 7:38 PM [facility] RBC, Urine 20(H) 0 - 4 /HPF 08/06/2024 7:38 PM [facility] WBC, Urine 100(H) 0 - 4 /HPF 08/06/2024 7:38 PM [facility] Squamous Epithelial, Urine 40 0 - 60 /LPF 08/06/2024 7:38 PM [facility] Bacteria, Urine Moderate(A) Negative /HPF 08/06/2024 7:38 PM [facility] Hyaline Casts, Urine 5(H) 0 - 3 /LPF 08/06/2024 7:38 PM [facility] Other Casts, Urine Rare coarse granular casts /LPF 08/06/2024 7:38 PM [facility] Yeast, Urine Present(A) None /HPF 08/06/2024 7:38 PM [facility] Urine Urine specimen obtained by clean catch procedure / Unknown Non-blood Collection / Unknown 08/06/2024 6:01 PM EST 08/06/2024 6:29 PM EST us Roland Kauffman MD LAB URINE ORDERABLES Final R esult [facility] [address] [place] [address], * Brooke urine culture tube (08/06/2024 6:01 PM EST) Extra Tube Hold for add-ons. 08/06/2024 8:01 PM EST [facility] Comment:Auto resulted. Urine Urine specimen obtained by clean catch procedure / Unknown Non-blood Collection / Unknown 08/06/2024 6:01 PM EST 08/06/2024 6:29 PM EST us Roland Kauffman MD LAB URINE ORDERABLES Final R esult Performing Organization Address [facility] Co de Phone Number [facility] [address] [place] [address], [place] [phone] * (ABNORMAL) Culture urine (08/06/2024 6:01 PM EST) Culture, Urine 10,000-49,0 00 CFU/mL Sabina albicans/du bliniensis( A) 08/09/2024 10:23 AM EST [facility] Comment: Edited result: Previously reported as Yeast on 08/08/2024 at 1248 EST. Urine Indwelling urinary catheter / Unknown Non-blood Collection / Unknown 08/06/2024 6:01 PM EST 08/06/2024 7:38 PM EST us Roland Kauffman MD LAB MICROBIOLOGY - GENERAL O RDERABLES Final Result Performing Organization Address [facility] Co de Phone Number [facility] [address] [place] [address], [place] [phone] * Activated Partial Thromboplastin Time - STAT (08/06/2024 5:40 PM EST) aPTT 34.8 24.1 - 39.3 sec LAB COAGULATION METHOD 08/06/2024 6:31 PM EST [facility] Blood Venous blood specimen / Unknown Venipuncture / Unknown 08/06/2024 5:40 PM EST 08/06/2024 6:02 PM EST us Roland Kauffman MD LAB BLOOD ORDERABLES Final R esult Performing Organization Address [facility]/ZIP Co de Phone Number [facility] [address] [place] [address], [place] [phone] * Prothrombin Time with INR - STAT (08/06/2024 5:40 PM EST) Protime 13.7 10.6 - 13.9 sec LAB COAGULATION METHOD 08/06/2024 6:31 PM EST [facility] INR 1.1 LAB COAGULATION METHOD 08/06/2024 6:31 PM EST [facility] Blood Venous blood specimen / Unknown Venipuncture / Unknown 08/06/2024 5:40 PM EST 08/06/2024 6:02 PM EST us Roland Kauffman MD LAB BLOOD ORDERABLES Final R esult Performing Organization Address [facility] de Phone Number [facility] [address] [place] [address], [place] [phone] * (ABNORMAL) Anti-Xa - STAT (08/06/2024 5:40 PM EST) Pathologist [facility] Heparin Anti-Xa <0.04(L) 0.30 - 0.70 I Unit/mL LAB COAGULATION METHOD 08/06/2024 7:00 PM EST [facility] Blood Venous blood specimen / Unknown Venipuncture / Unknown 08/06/2024 5:40 PM EST 08/06/2024 6:02 PM EST Narrative [facility] - 08/06/2024 7:00 PM EST Therapeutic range listed is for Unfractionated Heparin. LMW Heparin therapeutic range: 0.50-1.20 IU/mL us Roland Kauffman MD LAB BLOOD ORDERABLES Final R esult Performing Organization Address [facility]/ZIP Co de Phone Number [facility] [address] [place] [address], [place] [phone] * CT Angio Chest wo and/or w [...] MD on 08/06/2024 18:09:18 Roland Kauffman MD IM CT PROCEDURES Final Resu lt * Rapid [id number], molecular (08/06/2024 4:45 PM EST) [facility] SARS-COV-2 Screen Not Detected Not Detected METHOD [id number] 08/06/2024 6:05 PM EST [facility] Swab Both anterior nares / Unknown Non-blood Collection / Unknown 08/06/2024 4:45 PM EST 08/06/2024 4:50 PM EST Narrative [facility] - 08/06/2024 6:05 PM EST Unable to obtain a valid result. Interfering substances may be present in this specimen. Recollection and repeat testing with an alternate method is suggested. us Roland Kauffman MD LAB MICROBIOLOGY - GENERAL O RDERABLES Final Result Performing Organization Address [facility] Co de Phone Number [facility] [address] [place] [address], [place] [phone] * (ABNORMAL) D-Dimer (Quantitative) (08/06/2024 4:03 PM EST) D-Dimer, Quant (D-DU) 1,595(H) <=230 ng/mL DDU LAB COAGULATION METHOD 08/06/2024 4:22 PM EST [facility] Blood Venous blood specimen / Unknown Venipuncture / Unknown 08/06/2024 4:03 PM EST 08/06/2024 4:10 PM EST Narrative [facility] - 08/06/2024 4:22 PM EST D-Dimer <230 ng/mL (D-Dimer units) is the threshold for exclusion of DVT/PE. D-Dimer may be elevated in: Critically ill, severely infected, trauma patients, DIC, acute CVA, acute PR, unstable angina, AF, old age, , and smoking. D-Dimer may be decreased with: Initiation of heparin therapy and oral anticoagulants. us Roland Kauffman MD LAB BLOOD ORDERABLES Final R esult Performing Organization Address [facility]/ZIP Co de Phone Number [facility] [address] [place] [address], [place] [phone] * 12-Lead ECG (08/06/2024 3:33 PM EST) Ventricular Rate ECG 83 BPM GEMUSE Atrial Rate 84 BPM GEMUSE QRS Duration 96 ms GEMUSE Q-T Interval 358 ms GEMUSE QTc 420 ms GEMUSE R [place] -32 degrees GEMUSE T [place] 35 degrees GEMUSE ECG Interpretation Normal sinus [...] ECG ORDERABLES Final Result Performing Organization Address [facility] de Phone Number GEMUSE * Culture blood (08/06/2024 3:30 PM EST) Only the most recent of2 resultswithin the time period is included. Pathologist [facility] Culture, Blood No growth at 5 days LAB MICROBIOLOGY METHOD 08/11/2024 4:01 PM EST [facility] Blood Venous blood specimen / Unknown Venipuncture / Unknown 08/06/2024 3:30 PM EST 08/06/2024 3:42 PM EST us Roland Kauffman MD LAB MICROBIOLOGY - GENERAL O RDERABLES Final Result Performing Organization Address [facility] Co de Phone Number [facility] [address] [place] [address], [place] [phone] * Lactate, with reflex (08/06/2024 2:48 PM EST) Pathologist [facility] LACTIC ACID 1.3 0.4 - 2.0 mmol/L LAB CHEMISTRY METHOD 08/06/2024 3:30 PM EST [facility] Blood Venous blood specimen / Unknown Venipuncture / Unknown 08/06/2024 2:48 PM EST 08/06/2024 2:58 PM EST us Roland Kauffman MD LAB BLOOD ORDERABLES Final R esult [facility] [address] [place] [address], [place] [phone] * (ABNORMAL) Comprehensive metabolic panel (08/06/2024 2:48 PM EST) Sodium 146(H) 133 - 145 mmol/L LAB CHEMISTRY METHOD 08/06/2024 3:24 PM EST [facility] Potassium 3.9 3.5 - 5.5 mmol/L LAB CHEMISTRY METHOD 08/06/2024 3:24 PM [facility] Chloride 117(H) 96 - 110 mmol/L LAB CHEMISTRY METHOD 08/06/2024 3:24 PM [facility] CO2 24 21 - 32 mmol/L LAB CHEMISTRY METHOD 08/06/2024 3:24 PM [facility] Anion Gap 5 3 - 11 LAB CHEMISTRY METHOD 08/06/2024 3:24 PM [facility] Glucose 135(H) 70 - 100 mg/dL LAB CHEMISTRY METHOD 08/06/2024 3:24 PM [facility] BUN 27(H) 5 - 25 mg/dL LAB CHEMISTRY METHOD 08/06/2024 3:24 PM [facility] Creatinine 2.31(H) 0.70 - 1.30 mg/dL LAB CHEMISTRY METHOD 08/06/2024 3:24 PM [facility] eGFR 29(L) >=60 mL/min/1. 73m2 LAB CHEMISTRY METHOD 08/06/2024 3:24 PM [facility] Comment:Calculation based on the??Chronic Kidney Disease Epidemiology Collaboration (CKD-EPI) equation refit??without adjustment for race. BUN/Creatinine Ratio 11.7 LAB CHEMISTRY METHOD 08/06/2024 3:24 PM EST [facility] Calcium 8.5 8.5 - 10.5 mg/dL LAB CHEMISTRY METHOD 08/06/2024 3:24 PM [facility] AST (SGOT) 24 10 - 42 unit/L LAB CHEMISTRY METHOD 08/06/2024 3:24 PM [facility] ALT (SGPT) 18 10 - 60 unit/L LAB CHEMISTRY METHOD 08/06/2024 3:24 PM [facility] Alkaline Phosphatase 146(H) 42 - 121 unit/L LAB CHEMISTRY METHOD 08/06/2024 3:24 PM [facility] Total Protein 6.3 6.0 - 8.0 g/dL LAB CHEMISTRY METHOD 08/06/2024 3:24 PM [facility] Albumin 2.8(L) 3.2 - 5.0 g/dL LAB CHEMISTRY METHOD 08/06/2024 3:24 PM [facility] Total Bilirubin 0.6 0.0 - 1.4 mg/dL LAB CHEMISTRY METHOD 08/06/2024 3:24 PM [facility] Blood Venous blood specimen / Unknown Venipuncture / Unknown 08/06/2024 2:48 PM EST 08/06/2024 3:00 PM EST us Roland Kauffman MD LAB BLOOD ORDERABLES Final R esult [facility] [address] [place] [address], * Hemoglobin A1c (07/26/2024 5:37 AM EST) Hemoglobin A1C 4.8 <6.5 % LAB CHEMISTRY METHOD 07/26/2024 1:04 PM [facility] Mean Bld Glu Estim. 91 mg/dL LAB CHEMISTRY METHOD 07/26/2024 1:04 PM [facility] Blood Venous blood specimen / Unknown Venipuncture / Unknown 07/26/2024 5:37 AM EST 07/26/2024 6:32 AM EST Ryanne Evans MD LAB BLOOD ORDERABLES Final Resul t [facility] [address] [place] [address], * (ABNORMAL) Lipid panel (06/05/1999) LDL/HDL Ratio 5 <=5 Triglycerides 219(A) <=200 mg/dL Cholesterol 227(A) <=200 mg/dL HDL 43 >=34 mg/dL LDL Cholesterol 140(A) 0 - 130 mg/dL Blood Venous blood specimen / Unknown Historical Provider LAB BLOOD ORDERABLES Katelyn l Result from Last 3 Months or Most Recently Relevant to Health Maintenance Additional Health Concerns Infection Onset Date Last Indicated ESBL 07/25/2024 07/25/2024 Insurance MEDICAID - [place] [employer] MEDICARE [place] [id number] Advance Directives Documents on File Type Date Recorded Patient Supervisor Lending Activities Expl anation Advance Directives and Living Will [...] Perez Daughter Health Care Agent Care Teams Geospatial Image Analyst Relationship Specialty Start Date End Date Physician, No Pcp PCP - General 07/25/24
[2024-11-03 05:43] LABS: Basophils Absolute Auto 0.1 X10*3/uL (0.0-0.2); Basophils Percent Auto 0.6 % (0-2); Eosinophils Absolute Auto 0.4 X10*3/uL (0.0-0.4); Eosinophils Percent Auto 3.2 % (0-4); Hematocrit 26.4 % (42.0-52.0); Hemoglobin 8.8 g/dl (14.0-18.0); Imm Gran Abs Auto 0.06 X10*3/uL (0.00-0.03); Imm Gran Pct Auto 0.5 % (0.0-0.4); Lymphocytes Absolute Auto 2.3 X10*3/uL (1.2-4.9); Lymphocytes Percent Auto 19.8 % (20-40); MANUAL DIFF FLAG SCAN; Mean Corpuscular HGB Conc 33.3 g/dl (31.0-36.0); Mean Corpuscular Hemoglobin 30.8 pg (27.0-33.0); Mean Corpuscular Volume 92.3 fL (80.0-98.0); Mean Platelet Volume 9.9 fL (9.4-12.4); Monocytes Absolute Auto 1.7 X10*3/uL (0.1-1.2); Monocytes Percent Auto 14.8 % (2-11); Neutrophils Absolute Auto 7.2 x10*3/uL (2.0-8.3); Neutrophils Percent Auto 61.1 % (45-73); Platelet Count 285 X10*3/uL (160-400); Red Blood Count 2.86 X10*6/uL (4.60-5.80); Red Cell Distribution Width 13.4 % (11.0-16.0); SCAN SMEAR FLAG 1; White Blood Count 11.8 X10*3/uL (4.8-10.8)
[2024-11-03 06:03] LABS: Anion Gap 12 (12-20); Blood Urea Nitrogen 60 mg/dL (9-16); Calcium 8.2 mg/dL (8.4-10.2); Carbon Dioxide 20 mmol/L (22-29); Chloride 112 mmol/L (96-108); Estimated Glomerular Filt Rate 25; Glucose Random 81 mg/dL (60-115); Potassium 4.1 mmol/L (3.3-5.1); Sodium 140 mmol/L (135-145)
[2024-11-03 06:29] LABS: SLIDE REVIEW VERIFIED
== END 2024-11-03 05:24 | disposition home or self-care (01) ==
LOC: HO.MMNH3L 05:23
PROVIDERS: Visit Provider Nurse Practitioner
DX: N39.0 Urinary tract infection, site not specified (principal); E86.0 Dehydration
CPT/HCPCS: 36415; 80048; 85025

== ENCOUNTER 2024-11-06 06:13 | Outpatient (REF) | payer MEDICARE, MEDICAID, SELFPAY ==
--- OUTSIDE RECORDS SUMMARY | 2024-11-06 06:16 | XMS_ITS | Encounter Summary ---
Author Organization [facility], Address [address] [place] [address] Phone Care Team Providers Care Supervisor Customer Complaint Service Name Role Phone Maico Garcia Primary Care Provider [phone] Encounter Details Date Type Department Care Team (Late st Contact Info) Description 10/01/2022 Office Communication [facility], [address] [place] [phone] Jose M Martinez MD [address] [place] [address] Social History Tobacco Use Types [...] - 10/02/2022 8:34 AM EST Faxed to [phone] documented in this encounter Plan of Treatment Not on file documented as of this encounter Visit Diagnoses Not on filedocumented in this encounter Care Teams Supervisor Customer Complaint Service Relationship Specialty Start Date End Date Maico Garcia PA [address] [place] [phone] PCP - General Physician Straight Cutter 08/03/22 documented as of this encounter
--- OUTSIDE RECORDS SUMMARY | 2024-11-06 06:16 | XMS_ITS | Patient Health Record ---
Author Organization Vega Ricks MD Address [address] [place] [address] Care Team Providers Care Supervisor Delivery Department Name Role Phone Katheryn Oliver MD Primary Care Provider Unavailable Vega Ricks Unavailable [phone] REASON FOR REFERRAL No Information MEDICATIONS Medication [...] overlapping lesion of connective and soft tissue (451566168) Problem Cervical spondylosis (M47.812) Active confirmed Cervical spondylosis (430619168) Problem Lumbar spondylosis (M47.816) Active confirmed 272925548 Problem Thoracic spondylosis (M47.814) Active confirmed Thoracic spondylosis (951518096) Problem 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) Active confirmed 577463596 Problem 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) Active confirmed 5228262 Problem 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) Active confirmed 123730642 Problem Flat back syndrome (M40.30) Active confirmed [...] CBCAD 04/28/2022 CBC WITH AUTO-DIFF - CBCAD 06/12/2020 CBC WITH AUTO-DIFF - CBCAD 01/26/2022 CBC WITH AUTO-DIFF - CBCAD 08/14/2020 SEDIMENTATION RATE - ESR 08/15/2020 PROTIME - PT 08/15/2020 PROTIME - PT 08/16/2020 PROTIME - PT 08/11/2020 PROTIME - PT 2020 PROTIME - PT 08/12/2020 PROTIME - PT 08/14/2020 PROTIME - PT 08/10/2020 PROTIME - PT [...] BMP 07/07/2018 BASIC METABOLIC PANEL - BMP 08/10/2020 BASIC METABOLIC PANEL - BMP 08/16/2020 BASIC METABOLIC PANEL - BMP 2020 SODIUM - NA 08/09/2020 SODIUM - NA 08/08/2020 SODIUM - NA 05/06/2022 SODIUM - NA 12/02/2020 SODIUM - NA 11/30/2020 SODIUM - NA 11/28/2020 POTASSIUM - K 11/28/2020 POTASSIUM - K 11/30/2020 POTASSIUM - K 12/02/2020 POTASSIUM - K 05/06/2022 POTASSIUM - K 05/06/2022 POTASSIUM - K 08/08/2020 POTASSIUM - K 08/09/2020 POTASSIUM - K 08/08/2020 GLUCOSE - GLU 08/08/2020 BUN - BUN 08/08/2020 BUN - BUN 08/09/2020 BUN - BUN 08/12/2020 BUN - BUN 05/06/2022 BUN - BUN 02/10/2022 BUN - BUN 12/02/2020 BUN - BUN 11/28/2020 CREATININE - CR 11/28/2020 CREATININE - CR 11/30/2020 CREATININE - CR 12/02/2020 CREATININE - CR 12/01/2020 CREATININE - CR 02/10/2022 CREATININE - CR 05/06/2022 CREATININE - CR 08/12/2020 CREATININE - CR 08/09/2020 CREATININE - CR 08/08/2020 CALCIUM - CA 08/09/2020 MAGNESIUM - MG 08/09/2020 MAGNESIUM - MG 08/08/2020 MAGNESIUM - MG 08/10/2020 MAGNESIUM - MG 08/12/2020 MAGNESIUM - MG 2020 MAGNESIUM - MG 08/16/2020 MAGNESIUM - MG 08/14/2020 MAGNESIUM - MG 05/06/2022 MAGNESIUM - MG 11/29/2020 MAGNESIUM - MG 12/02/2020 MAGNESIUM - MG 11/30/2020 MAGNESIUM - MG 11/28/2020 MAGNESIUM - MG 05/07/2022 PHOSPHORUS\,INORGANIC - IP [...] STAIN - KGST 08/08/2020 BLOOD CULTURE - [facility] 08/10/2020 BLOOD CULTURE - [facility] 08/10/2020 RED BLOOD CELLS 11/28/2020 GLYCOHGB 04/28/2022 GLYCOHGB 08/06/2022 GLYCOHGB 08/09/2020 GLYCOHGB 07/26/2020 GLYCOHGB 06/12/2020 GLYCOHGB 11/21/2020 BBK SPECIMEN 11/28/2020 BEDSIDE GLUCOSE 11/28/2020 BEDSIDE GLUCOSE 08/16/2020 BEDSIDE GLUCOSE 08/15/2020 BEDSIDE GLUCOSE 08/15/2020 BEDSIDE GLUCOSE 08/15/2020 BEDSIDE GLUCOSE 08/16/2020 BEDSIDE GLUCOSE 08/15/2020 BEDSIDE GLUCOSE 08/14/2020 BEDSIDE GLUCOSE 08/14/2020 BEDSIDE GLUCOSE 08/14/2020 BEDSIDE GLUCOSE 08/14/2020 BEDSIDE GLUCOSE 2020 BEDSIDE GLUCOSE 2020 BEDSIDE GLUCOSE 2020 BEDSIDE GLUCOSE 2020 BEDSIDE GLUCOSE 2020 BEDSIDE GLUCOSE 2020 BEDSIDE GLUCOSE 08/12/2020 BEDSIDE GLUCOSE 08/12/2020 BEDSIDE GLUCOSE 08/12/2020 BEDSIDE GLUCOSE 08/12/2020 BEDSIDE GLUCOSE 08/11/2020 BEDSIDE GLUCOSE 08/11/2020 BEDSIDE GLUCOSE 08/11/2020 BEDSIDE GLUCOSE 07/06/2018 BEDSIDE GLUCOSE 07/07/2018 BEDSIDE GLUCOSE 07/07/2018 BEDSIDE GLUCOSE 07/07/2018 BEDSIDE GLUCOSE 07/07/2018 BEDSIDE GLUCOSE 07/08/2018 BEDSIDE GLUCOSE 07/08/2018 BEDSIDE GLUCOSE 07/08/2018 BEDSIDE GLUCOSE 08/09/2020 BEDSIDE GLUCOSE 08/09/2020 BEDSIDE GLUCOSE 08/09/2020 BEDSIDE GLUCOSE 08/10/2020 BEDSIDE GLUCOSE 08/11/2020 BEDSIDE GLUCOSE 08/08/2020 BEDSIDE GLUCOSE 08/10/2020 BEDSIDE GLUCOSE 08/10/2020 BEDSIDE GLUCOSE 08/10/2020 BEDSIDE GLUCOSE 08/08/2020 BEDSIDE GLUCOSE 08/09/2020 BEDSIDE GLUCOSE 05/06/2022 BEDSIDE GLUCOSE 05/07/2022 BEDSIDE GLUCOSE 05/07/2022 BEDSIDE GLUCOSE 05/07/2022 BEDSIDE GLUCOSE 05/06/2022 BEDSIDE GLUCOSE 05/06/2022 BEDSIDE GLUCOSE 12/02/2020 BEDSIDE GLUCOSE 12/01/2020 BEDSIDE GLUCOSE 12/01/2020 BEDSIDE GLUCOSE 12/01/2020 BEDSIDE GLUCOSE 05/06/2022 BEDSIDE GLUCOSE 05/05/2022 BEDSIDE GLUCOSE 05/05/2022 BEDSIDE GLUCOSE 05/05/2022 BEDSIDE GLUCOSE 05/05/2022 BEDSIDE GLUCOSE 11/29/2020 BEDSIDE GLUCOSE 11/28/2020 BEDSIDE GLUCOSE 11/30/2020 BEDSIDE GLUCOSE 11/30/2020 BEDSIDE GLUCOSE 11/30/2020 BEDSIDE GLUCOSE 12/02/2020 BEDSIDE GLUCOSE 11/29/2020 BEDSIDE GLUCOSE 11/29/2020 BEDSIDE GLUCOSE 11/29/2020 BEDSIDE GLUCOSE 11/29/2020 BEDSIDE GLUCOSE 11/30/2020 BEDSIDE GLUCOSE 12/01/2020 MANUAL DIFF 05/06/2022 MANUAL DIFF 06/12/2020 MRSA/MSSA PCR 06/12/2020 MRSA/MSSA PCR 07/26/2020 MRSA/MSSA PCR 07/06/2018 MRSA/MSSA PCR 11/21/2020 MRSA/MSSA PCR 04/28/2022 MRSA/MSSA PCR 08/06/2022 CT Scan : Cervical Spine 10/12/2022 TS Automated 11/28/2020 TS Automated 08/08/2020 TS Automated 05/05/2022 BMPGFR 11/29/2020 BMPGFR 08/14/2020 BMPGFR 08/15/2020 BMPGFR 08/11/2020 XM 11/28/2020 XM 08/08/2020 TSAPASU 07/26/2020 TSAPASU 06/12/2020 TSAPASU 11/21/2020 TSAPASU 04/28/2022 TSAPASU 08/06/2022 KORT 2020 KORT 08/08/2020 KORT 08/08/2020 KANASTER [...] AOT 08/11/2020 AOT 08/08/2020 AOT 08/09/2020 AOT 05/06/2022 AOT 12/02/2020 AOT 05/06/2022 SURG 11/28/2020 SURG 05/05/2022 [id number] 11/28/2020 XR SHOULDER RIGHT 3 VIEWS 05/22/2022 RAPID COVID-19 12/01/2020 RAPID COVID-19 05/03/2022 RAPID COVID-19 08/06/2020 RAPID COVID-19 08/15/2020 Insurance Providers Payer Name Payer Address Payer Phone Subscriber Number Group Number Insured Name Patient Relationship to Insured Coverage Start Date Coverage End Date MEDICARE [address] [place] [address] [phone] [id number] Aleksandr Perez Self - patient is the insured Medicare Advantage through [facility] [id number] Aleksandr Perez Self - patient is the insured [facility] [id number] Aleksandr Perez Self - patient is the insured
--- OUTSIDE RECORDS SUMMARY | 2024-11-06 06:16 | XMS_ITS | Clinical Summary ---
Author Organization [facility], Address [address] [address] Phone Care Team Providers Care Supervisor Parking Lot Name Role Phone Maico Garcia Primary Care Provider [phone] Allergies No known active allergies Medications amLODIPine [...] Problem Noted Date Diagnosed Date Hyperkalemia 10/01/2022 half-way use of nonsteroidal anti-inflammatorie s 10/01/2022 Type [...] age to complete this topic Insurance MEDICARE [facility] MEDICARE MEDICAID [place] Care Teams Supervisor Parking Lot Relationship Specialty Start Date End Date Maico Garcia PA [address] [place] [address] [phone] PCP - General Physician Geographic Analyst 08/03/22
--- OUTSIDE RECORDS SUMMARY | 2024-11-06 06:17 | XMS_ITS ---
Author Organization [facility] Address [address] [place] [address] Care Team Providers Care Jig Worker Name Role Phone Gordo Lanier DO Primary Care Provider Emily Chauhan Unavailable [phone] Allergies No Known Allergies REASON FOR VISIT [...] A DAY Oral for 30 Not-Taking Ergocalciferol 91729 UNIT 1 capsule Orally Once a day [...] Polyneuropathy due to type 2 diabetes mellitus (323542297) Type 2 diabetes mellitus with diabetic polyneuropathy (E11.42) Active confirmed Vital Signs Height 5ft 10in in 09/04/2024 Weight 235 lbs 09/04/2024 BMI 33.72 kg/m2 09/04/2024 Blood pressure systolic 118 mm Hg 09/04/20 24 Blood pressure diastolic 60 mm Hg 024 Procedures Procedure Date Ordered Date Performed Result Body Sit e 37085-SGKDBGZ NAIL, 6 OR MORE 09/04/2024 N/A 48916-DYLZ SKIN LESIONS, OVER 4 09/04/2024 N/A 42401- Removal of Foreign Body, Subcut 09/04/2024 N/A Encounters Encounter Location Date Provider Diagnosis [facility] [address] [address] 09/04/2024 Emily Madrid Type 2 diabetes mellitus with diabetic polyneuropathy E11.42 ; Tinea unguium B35.1 ; Puncture wound with foreign body, left foot, initial encounter S91.342A and Unspecified atherosclerosis of [place] arteries of extremities, bilateral legs I70.203 Assessments Encounter Date Diagnosis (ICD Code) Assessment Notes Treatment Notes Treatment Clinical Notes Section Notes 09/04/2024 Type 2 diabetes mellitus with diabetic polyneuropathy (ICD-10 - E11.42) 09/04/2024 Tinea unguium (ICD-10 - B35.1) 09/04/2024 Puncture wound with foreign body, left foot, initial encounter (ICD-10 - S91.342A) 09/04/2024 Unspecified atherosclerosis of [place] arteries of extremities, bilateral legs (ICD-10 - I70.203) Plan Of Treatment Pending Test Test Name Order Date 29538-DMOQYGD NAIL, 6 OR MORE 09/04/2024 66449-JNFV SKIN LESIONS, OVER 4 09/04/20 74235- Removal of Foreign Body, Subcut 1 Next Appt Details Follow Up: 4 Months, Reason: Provider Name:Emily cross, 12/28/2024 03:00:00 PM, [address] [place] [address], [phone], Procedure Notes * Category Sub-Category Detail Notes [...] discussed and dispensed, Patient tolerated procedure well (75427) Location of foreign body As per exam [...] use of a nail nipper and/or dremel-type tool and cutter grinder, to a more viable healthy nail [...] to maintain effectiveness in symptomatic relief - 36643 Keratoma Treatment Parring or Cutting o f [...] instrumentation by the physician of record - 89257 Progress Notes * MINHSUSHILAAleksandr ODOB:1950 (74 yo M)Acc No.[id number]:09/04/2024 Progress Note Patient:?Aleksandr PEREZ Megan Provider:?Emily Madrid DPM :1950???Age:74 Y???Sex:Male Edson e:09/04/2024 Address:[address] Pcp:Gordo Lanier, DO Subjective: * Chief Complaints: [...] - Kidney Failure, had to be revived 03/29/2016[facility] 03/2018[facility] collapsed [facility] 06[place] [place] [facility] 7 [facility] stay, [facility] for 6 weeks 07/2019 * Family History:?Mother: [...] PO FIVE TIMES A DAY Oral Ergocalciferol 95601 UNIT Capsule 1 capsule Orally Once a [...] FIVE TIMES A DAY Oral Not-Taking/PRN Ergocalciferol 62001 UNIT Capsule 1 capsule Orally Once a [...] foot, initial encounter - S91.342A???4.?Unspecified atherosclerosis of [place] arteries of extremities, bilateral legs - I70.203??? Plan: * Treatment: 2.?Puncture wound with forei gn body, left foot, initial encounter?Procedure: 00452- Removal of Foreign Body, Subcut * Procedures:?Debride [...] use of a nail nipper and/or dremel-type tool and cutter grinder, to a more viable healthy nail [...] to maintain effectiveness in symptomatic relief - 46475.?Foreign Body Removal:?Anesthesia?was not utilized - NEUROPATHY: patient [...] discussed and dispensed, Patient tolerated procedure well (32006).?Keratoma Treatment:?Parring or Cutting of Benign Hyperkeratotic Lesion(s)?(-57) [...] instrumentation by the physician of record - 51641.? * Procedure Codes:?36059 DEBRI DE NAIL, 6 OR MORE, Modifiers: XS 76421 REMOVAL OF FOOT FOREIGN BODY, Modifiers: XS 45686 TRIM SKIN LESIONS, OVER 4, Modifiers: XS * Follow Up:?4 Months * Images: * Sign off status: Completed true * Provider:?Emily Madrid DPM Date:? Generated for Demian august/Cordell/Boogie on:?11/06/2024 06:16 AM EST History and Physical Notes * [...]
--- OUTSIDE RECORDS SUMMARY | 2024-11-06 06:17 | XMS_ITS | Clinical Summary ---
Author Organization [facility] Address [address] [place] [address] Phone Care Team Providers Care Automobile Racer Name Role Phone Physician, No Pcp Primary [...] Team Description 08/15/2024 Telephone Orthopedic Surgery - [place] [address] [address] Neftali Laguerre DPM order 08/06/2024 1:29 PM EST - 08/10/2024 7:35 PM EST Hospital Encounter [facility] Surgical Unit [address] [place] [address] Roland Kauffman MD Jones, Christopher, MD Zipagan, James T, MD Kulkarni, John A, MD Hypoxia (Primary Dx); Troponin I above reference range; SIRS (systemic inflammatory response syndrome) ([facility]); Troponin level elevated; Bilateral lower extremity edema; Sepsis ([facility]) Discharge Disposition: Assisted Facility from Last 3 Months Surgical History Surgery Date Site/Laterality Comments OTHER SURGICAL HISTORY PROCEDURE:SPLENECTOMY BACK SURGERY PROCEDURE:BACK SURGERY, 16 back surgeries APPENDECTOMY CHOLECYSTECTOMY ROTATOR CUFF REPAIR Bilateral TOE AMPUTATION Left left hallux Medical History Medical History Date Comments GERD (gastroesophageal reflux disease) DX:GERD (gastroesophageal reflux disease) Hypertension DX:Hypertension Anxiety DX:Anxiety Depression DX:Depression Diabetes mellitus ([facility]) DX:D iabetes mellitus ([facility]) Chronic kidney disease BPH (benign prostatic hyperplasia) Peripheral vascular disease ([facility]) GERD (gastroesophageal reflux disease) Diabetes, polyneuropathy ([facility]) Spinal stenosis Neurogenic bladder Family [...] MOLECULAR STUDY Routine 08/08/2024 2:57 AM EST HEMOGLOBIN A1C Add-On 07/26/2024 5:37 AM EST LIPID PANEL Routine 06/05/1999 from Last 3 Months or Most Recently Relevant to Health Maintenance Results * POCT Glucose, blood (08/10/2024 10:59 AM EST) Only the most recent of10 resultswithin the time period is included. [facility] Glucose POCT 92 70 - 100 mg/dL 08/10/2024 11:00 AM EST [facility] Blood Capillary blood specimen / Unknown 08/10/2024 10:59 AM EST 08/10/2024 11:01 AM EST us John Kulkarni MD LAB POINT OF CARE TE ST DOCKED DEVICE UNSOLICITED RESULTS Final Result [facility] [address] [place] [address], [place] [phone] * (ABNORMAL) CBC auto differential (08/10/2024 6:39 AM EST) Only the most recent of3 resultswithin the time period is included. WBC 10.3 4.8 - 10.8 K/mcL LAB HEMETOLOGY METHOD 08/10/2024 7:34 AM [facility] RBC 2.90(L) 4.50 - 5.50 M/mcL LAB HEMETOLOGY METHOD 08/10/2024 7:34 AM [facility] Hemoglobin 8.8(L) 13.5 - 17.5 g/dL LAB HEMETOLOGY METHOD 08/10/2024 7:34 AM [facility] Hematocrit 26.5(L) 42.0 - 54.0 % LAB HEMETOLOGY METHOD 08/10/2024 7:34 AM [facility] MCV 92.0 79.0 - 98.0 FL LAB HEMETOLOGY METHOD 08/10/2024 7:34 AM [facility] MCH 30.6 27.0 - 32.0 pcg LAB HEMETOLOGY METHOD 08/10/2024 7:34 AM [facility] MCHC 33.2 32.0 - 37.0 g/dL LAB HEMETOLOGY METHOD 08/10/2024 7:34 AM [facility] RDW 13.2 11.0 - 15.0 % LAB HEMETOLOGY METHOD 08/10/2024 7:34 AM [facility] Platelets 331 130 - 400 K/mcL LAB HEMETOLOGY METHOD 08/10/2024 7:34 AM [facility] MPV 10.5 7.0 - 11.0 FL LAB HEMETOLOGY METHOD 08/10/2024 7:34 AM [facility] NRBC 0.0 <1.0 % LAB HEMETOLOGY METHOD 08/10/2024 7:34 AM [facility] NRBC Absolute 0.00 <0.10 K/mcL LAB HEMETOLOGY METHOD 08/10/2024 7:34 AM [facility] Neutrophils Relative 56.8 % LAB HEMETOLOGY METHOD 08/10/2024 7:34 AM [facility] Lymphocytes Relative 22.4 % LAB HEMETOLOGY METHOD 08/10/2024 7:34 AM [facility] Monocytes Relative 13.1 % LAB HEMETOLOGY METHOD 08/10/2024 7:34 AM [facility] Eosinophils Relative 5.7 % LAB HEMETOLOGY METHOD 08/10/2024 7:34 AM [facility] Basophils Relative 1.5 % LAB HEMETOLOGY METHOD 08/10/2024 7:34 AM [facility] Immature Granulocytes Relative 0.5 % LAB HEMETOLOGY METHOD 08/10/2024 7:34 AM [facility] Neutrophils Absolute 5.84 1.50 - 7.00 K/mcL LAB HEMETOLOGY METHOD 08/10/2024 7:34 AM [facility] Lymphocytes Absolute 2.31 1.00 - 5.00 K/mcL LAB HEMETOLOGY METHOD 08/10/2024 7:34 AM [facility] Monocytes Absolute 1.35(H) 0.20 - 1.00 K/mcL LAB HEMETOLOGY METHOD 08/10/2024 7:34 AM [facility] Eosinophils Absolute 0.59(H) 0.00 - 0.50 K/mcL LAB HEMETOLOGY METHOD 08/10/2024 7:34 AM EST [facility] Basophils Absolute 0.15 0.00 - 0.20 K/mcL LAB HEMETOLOGY METHOD 08/10/2024 7:34 AM [facility] Immature Granulocytes Absolute 0.05(H) 0.00 - 0.03 K/mcL LAB HEMETOLOGY METHOD 08/10/2024 7:34 AM [facility] Blood Venous blood specimen / Unknown Venipuncture / Unknown 08/10/2024 6:39 AM EST 08/10/2024 7:05 AM EST us John Kulkarni MD LAB BLOOD ORDERABLES Final Re sult [facility] [address] [place] [address], * (ABNORMAL) Basic metabolic panel (08/10/2024 6:39 AM EST) Only the most recent of3 resultswithin the time period is included. Sodium 143 133 - 145 mmol/L LAB CHEMISTRY METHOD 08/10/2024 7:50 AM [facility] Potassium 3.6 3.5 - 5.5 mmol/L LAB CHEMISTRY METHOD 08/10/2024 7:50 AM [facility] Chloride 113(H) 96 - 110 mmol/L LAB CHEMISTRY METHOD 08/10/2024 7:50 AM [facility] CO2 25 21 - 32 mmol/L LAB CHEMISTRY METHOD 08/10/2024 7:50 AM [facility] Anion Gap 5 3 - 11 LAB CHEMISTRY METHOD 08/10/2024 7:50 AM [facility] Glucose 78 70 - 100 mg/dL LAB CHEMISTRY METHOD 08/10/2024 7:50 AM [facility] BUN 29(H) 5 - 25 mg/dL LAB CHEMISTRY METHOD 08/10/2024 7:50 AM [facility] Creatinine 1.93(H) 0.70 - 1.30 mg/dL LAB CHEMISTRY METHOD 08/10/2024 7:50 AM EST [facility] eGFR 37(L) >=60 mL/min/1. 73m2 LAB CHEMISTRY METHOD 08/10/2024 7:50 AM EST [facility] Comment:Calculation based on the??Chronic Kidney Disease Epidemiology Collaboration (CKD-EPI) equation refit??without adjustment for race. BUN/Creatinine Ratio 15.0 LAB CHEMISTRY METHOD 08/10/2024 7:50 AM EST [facility] Calcium 8.6 8.5 - 10.5 mg/dL LAB CHEMISTRY METHOD 08/10/2024 7:50 AM EST [facility] Blood Venous blood specimen / Unknown Venipuncture / Unknown 08/10/2024 6:39 AM EST 08/10/2024 7:05 AM EST us John Kulkarni MD LAB BLOOD ORDERABLES Final Re sult [facility] [address] [place] [address], * NM Tumor Localization Whole Body 1 [...] Signed Date: 08/09/2024 10:47 ET Workstation ID: [id number] Transcribed By: Self Edit Transcribed Date: 08/09/2024 [...] Signed Date: 08/09/2024 10:47 ET Workstation ID: [id number] Transcribed By: Self Edit Transcribed Date: 08/09/2024 10:43 ET us John Kulkarni MD IM NM PROCEDURES Final Resul t * (ABNORMAL) Procalcitonin (08/09/2024 6:17 AM EST) Procalcitonin 1.37(H) <=0.16 ng/mL LAB CHEMISTRY METHOD 08/09/2024 3:18 PM EST [facility] Blood Venous blood specimen / Unknown Venipuncture / Unknown 08/09/2024 6:17 AM EST 08/09/2024 7:07 AM EST Narrative [facility] - 08/09/2024 3:18 PM EST [...] MD LAB BLOOD ORDERABLES Final Resul t [facility] [address] [place] [address], [place] [phone] * Sedimentation rate (08/09/2024 6:17 AM EST) Sed Rate 18 0 - 20 mm/hr LAB HEMETOLOGY METHOD 08/09/2024 11:38 AM EST [facility] Blood Venous blood specimen / Unknown Venipuncture / Unknown 08/09/2024 6:17 AM EST 08/09/2024 7:08 AM EST us Ryanne Evans MD LAB BLOOD ORDERABLES Final Resul t [facility] [address] [place] [address], [place] [phone] * (ABNORMAL) C-reactive protein (08/09/2024 6:17 AM EST) [facility] C-Reactive Protein 2.18(H) <=0.50 mg/dL LAB CHEMISTRY METHOD 08/09/2024 1:46 PM EST [facility] Blood Venous blood specimen / Unknown Venipuncture / Unknown 08/09/2024 6:17 AM EST 08/09/2024 7:07 AM EST Ryanne Evans MD LAB BLOOD ORDERABLES Final Resul t [facility] [address] [place] [address], [place] [phone] * (ABNORMAL) Magnesium (08/09/2024 6:17 AM EST) [facility] Magnesium 1.6(L) 1.9 - 2.6 mg/dL LAB CHEMISTRY METHOD 08/09/2024 1:46 PM EST [facility] Blood Venous blood specimen / Unknown Venipuncture / Unknown 08/09/2024 6:17 AM EST 08/09/2024 7:07 AM EST John Kulkarni MD LAB BLOOD ORDERABLES Final Re sult [facility] [address] [place] [address], [place] [phone] * Respiratory virus panel molecular study (08/08/2024 2:57 AM EST) [facility] Adenovirus Detection by PCR Not Detected Not Detected LAB MICROBIOLOGY METHOD 08/08/2024 9:46 AM EST [facility] Influenza A PCR Not Detected Not Detected LAB MICROBIOLOGY METHOD 08/08/2024 9:46 AM EST [facility] Influenza B PCR Not Detected Not Detected LAB MICROBIOLOGY METHOD 08/08/2024 9:46 AM EST [facility] Coronavirus 229E Not Detected Not Detected LAB MICROBIOLOGY METHOD 08/08/2024 9:46 AM [facility] Coronavirus HKU1 Not Detected Not Detected LAB MICROBIOLOGY METHOD 08/08/2024 9:46 AM [facility] Coronavirus OC43 Not Detected Not Detected LAB MICROBIOLOGY METHOD 08/08/2024 9:46 AM [facility] Coronavirus NL63 Not Detected Not Detected LAB MICROBIOLOGY METHOD 08/08/2024 9:46 AM [facility] Parainfluenza Virus 1 Not Detected Not Detected LAB MICROBIOLOGY METHOD 08/08/2024 9:46 AM [facility] Parainfluenza Virus 2 Not Detected Not Detected LAB MICROBIOLOGY METHOD 08/08/2024 9:46 AM [facility] Parainfluenza Virus 3 Not Detected Not Detected LAB MICROBIOLOGY METHOD 08/08/2024 9:46 AM [facility] Parainfluenza Virus 4 Not Detected Not Detected LAB MICROBIOLOGY METHOD 08/08/2024 9:46 AM [facility] RSV PCR Not Detected Not Detected LAB MICROBIOLOGY METHOD 08/08/2024 9:46 AM [facility] Human Metapneumovirus A and B Not Detected Not Detected LAB MICROBIOLOGY METHOD 08/08/2024 9:46 AM [facility] Rhinovirus/Entero virus Not Detected Not Detected LAB MICROBIOLOGY METHOD 08/08/2024 9:46 AM [facility] Bordetella pertussis Not Detected Not Detected LAB MICROBIOLOGY METHOD 08/08/2024 9:46 AM [facility] Bordetella parapertussis Not Detected Not Detected LAB MICROBIOLOGY METHOD 08/08/2024 9:46 AM [facility] Mycoplasma pneumo by PCR Not Detected Not Detected LAB MICROBIOLOGY METHOD 08/08/2024 9:46 AM [facility] Chlamydia pneumoniae Not Detected Not Detected LAB MICROBIOLOGY METHOD 08/08/2024 9:46 AM EST [facility] SARS COV-2 Not Detected Not Detected LAB MICROBIOLOGY METHOD 08/08/2024 9:46 AM EST [facility] Swab Both anterior nares / Unknown Non-blood Collection / Unknown 08/08/2024 2:57 AM EST 08/08/2024 8:52 AM EST Narrative [facility] - 08/08/2024 9:46 AM EST Testing was performed using the [employer] Respiratory Pathogen PCR Assay. All results must [...] that are below the limit of detection. Kimmy MCCAIN LAB MICROBIOLOGY - GENERAL O RDERABLES Final Result Performing Organization Address City/[facility]/ZIP Co de Phone Number [facility] [address] [place] [address], [place] [phone] * Hemoglobin A1c (07/26/2024 5:37 AM EST) Hemoglobin A1C 4.8 <6.5 % LAB CHEMISTRY METHOD 07/26/2024 1:04 PM EST [facility] Mean Bld Glu Estim. 91 mg/dL LAB CHEMISTRY METHOD 07/26/2024 1:04 PM EST [facility] Blood Venous blood specimen / Unknown Venipuncture / Unknown 07/26/2024 5:37 AM EST 07/26/2024 6:32 AM EST Ryanne Evans MD LAB BLOOD ORDERABLES Final Resul t Performing Organization Address City/[facility]/ZIP Co de Phone Number [facility] [address] [place] [address], [place] [phone] * (ABNORMAL) Lipid panel (06/05/1999) LDL/HDL Ratio 5 <=5 Triglycerides 219(A) <=200 mg/dL Cholesterol 227(A) <=200 mg/dL HDL 43 >=34 mg/dL LDL Cholesterol 140(A) 0 - 130 mg/dL Blood Venous blood specimen / Unknown us Historical Provider LAB BLOOD ORDERABLES Katelyn l Result from Last 3 Months or Most Recently Relevant to Health Maintenance Additional Health Concerns Infection Onset Date Last Indicated ESBL 07/25/2024 07/25/2024 Insurance MEDICAID - [place] [employer] MEDICARE Advance Directives Documents on File Type Date Recorded Patient Personal Injury Paralegal Expl anation Advance Directives and Living Will [...] Name Relationship Healthcare Agent Relationship Communication Pamela Padilla Health Care Agent Care Teams Automobile Racer Relationship Specialty Start Date End Date Physician, No Pcp PCP - General 07/25/24
--- OUTSIDE RECORDS SUMMARY | 2024-11-06 06:17 | XMS_ITS ---
Author [facility] Address [address] [place] [address] Care Team Providers Care Flare Breaker Name Role Phone Gordo Lanier DO Primary Care Provider Emily Chauhan Unavailable [phone] BrooksJames Unavailable [phone] Allergies No Known Allergies REASON FOR VISIT [...] innersoles for 1 year Dx: Active Ergocalciferol 28529 UNIT 1 capsule Orally Once a day [...] 024 Encounters Encounter Location Date Provider Diagnosis [facility] [address] [place] [address] 05/24/2024 James Brooks Tinea unguium B35.1 ; [...] right foot M21.371 and Unspecified atherosclerosis of [place] arteries of extremities, bilateral legs I70.203 Assessments [...] (ICD-10 - M21.371) 05/24/2024 Unspecified atherosclerosis of [place] arteries of extremities, bilateral legs (ICD-10 - I70.203) Plan Of Treatment Medication Medication Name Sig Start Date Stop Date Notes Extra Depth Diabetic Shoes w ith 3 Pair Custom heat-molded multi-density innersoles for 1 year Dx: Next Appt Details Follow Up: 3 Months, Reason: Provider Name:Emily cross, 12/28/2024 03:00:00 PM, [address] [place] [address], [place], [address], Procedure Notes * Category Sub-Category Detail Notes [...] as necessary. Patient chooses, no pharmaceutical tx (50401) Keratoma Treatment Parring or Cutting o f Benign Hyperkeratotic Lesion(s) 58103 (2-4 Lesions) - The Benign hyperkeratotic lesions, as described above were pared, and/or cut utilizing a sterile #15 blade, tissue nippers, and/or dremel Progress Notes * Aleksandr PEREZ ODOB:1950 (73 yo M)Acc No.[id number]:05/24/2024 Progress Note Patient:?Aleksandr Perez Provider:?James Brooks DPM :1950???Age:73 Y???Sex:Male Edson e:05/24/2024 Address:[place] [address] Pcp:Gordo Lanier DO Subjective: * Chief Complaints: * ??? Painful nail(s) aggrevat ed by shoes and causing difficulty standing/walking. * HPI: ???Painful Nails:?Pt States Last PCP Visit:?Date:?11/26/2023 ?Misc:?recent hospitalization at [facility] 11/11/[address] Campos --14th spinal [...] - Kidney Failure, had to be revived [facility]2018[facility] collapsed at home 06/2018[facility] back sx 07/2018[facility] stay, [facility] for 6 weeks 07/2019 * Family History:?Mother: [...] PO FIVE TIMES A DAY Oral Ergocalciferol 39668 UNIT Capsule 1 capsule Orally Once a [...] FIVE TIMES A DAY Oral Not-Taking/PRN Ergocalciferol 66596 UNIT Capsule 1 capsule Orally Once a [...] drop, right foot - M21.371?10.?Unspecified atherosclerosis of [place] arteries of extremities, bilateral legs - I70.203? [...] as necessary. Patient chooses, no pharmaceutical tx (15659).?Keratoma Treatment:?Parring or Cutting of Benign Hyperkeratotic Lesion(s)?58415 (2-4 Lesions) - The Benign hyperkeratotic lesions, as described above were pared, and/or cut utilizing a sterile #15 blade, tissue nippers, and/or dremel.? * Procedure Codes:?37958 DEBRI DE NAIL, 6 OR MORE, Modifiers: XS 81758 TRIM SKIN LESIONS, 2 TO 4, Modifiers: XS * Follow Up:?3 Months * Images: * Sign off status: Completed true * Provider:?James Brooks DPM Date:? 024 Generated for Demian august/Cordell/Boogie on:?11/06/2024 06:16 AM EST History and Physical Notes * HPI (History of Present Illness) Category Sub-Category Detail Notes Category Not es Painful Nails Misc: recent hospitali zation at [facility] 11/11/[address] Campos --14th spinal [...]
--- OUTSIDE RECORDS SUMMARY | 2024-11-06 06:17 | XMS_ITS | Patient Health Record ---
Author Organization [facility] Address [address] [place] [address] Care Team Providers Care Supply Chain Buyer Name Role Phone Gordo Lanier DO Primary Care Provider Emily Chauhan Unavailable [phone] James Brooks Unavailable [phone] Allergies No Known Allergies Results Component Value Reference Range Notes HEMOGLOBIN A1C (GLYCOHEMOGLO BIN) Reviewed date:12/01/2023 12:04:54 PM Interpretation: Performing Lab: Notes/Report: HEMOGLOBIN A1C % (HH) 6.1 HEMOGLOBIN A1C (GLYCOHEMOGLO BIN) Reviewed date:09/04/2024 11:51:01 AM Interpretation: Performing Lab: Notes/Report: TOTAL HEMOGLOBIN (HGBA1C) 4.7 Reason For Referral No Information Medications Medication SIG (Take, Route, Frequency, Duration) Notes Start Date End Date Status Morphine Not-Taking MS Contin Not-Taking Toujeo SoloStar 70 units a day Not-Taking Ativan PRN Not-Taking Cartia XT 240 MG TK 1 C PO D Oral for 30 Not-Taking Extra Depth Diabetic Shoes with 3 Pair Custom heat-molded multi-density innersoles for 1 year Dx: Active Labetalol HCl Not-Ta sen clonazePAM Active clonazePAM 1 MG (Schedule IV Drug) TK 1 T PO BID Oral for 30 Not-Taking Insulin Not-Taking Vitamin D Not-Taking Lyrica 100 MG 1 capsule Orally Three a day Active Flomax Active Morphine Sulfate ER 60 MG (Schedule II Drug) TK 2 TS PO BID Oral for 30 Not-Taking Furosemide Active Carisoprodol 350 MG (Schedule IV Drug) TK 1 T PO FIVE TIMES A DAY Oral for 30 Not-Taking Ergocalciferol 98531 UNIT 1 capsule Orally Once a day Not-Taking Soma 250 MG 1 tablet as needed Orally Four times a day PRN Active Sildenafil Citrate 100 MG 1 tablet as needed Orally Once a day Not-Taking Trulicity Active metFORMIN HCl 500 MG TK 2 TS PO BID Oral for 90 Not-Taking oxyCODONE HCl 20 MG 1 tablet as needed Orally three times a day Active Afrezza 8 (60)& 12 (30) UNIT U TID UTD Inhalation for 30 Not-Taking Sertraline HCl 25 MG 1 tablet Orally Onc e a day Active Omeprazole 20 MG 2 capsules Orally Once a day Not-Taking Antibiotic Not-Takin g Extra Depth Diabetic Shoes with 3 Pair Custom heat-molded multi-density innersoles for 1 year Dx: 06/22/2017 Not-Taking Extra Depth Orthopedic Shoes (1 Pair) with Customized Heat Molded Multidensity Innersoles (3 Pair) as directed Dx: NIDDM/Polyneuropathy (E11.42), Hammertoe Foot Deformity (M20.41,M20.42), Preulcerative Skin Lesion(s) (L85.1 07/24/2016 Active Spironolactone 25 MG TK 1 T PO D Oral fo r 30 Not-Taking Extra Depth Diabetic Shoes with 3 Pair Custom heat-molded multi-density innersoles for 1 year Dx: Not-Taking Extra Depth Diabetic Shoes with 3 Pair Custom heat-molded multi-density innersoles for 1 year Dx: 10/25/2020 Not-Taking cloNIDine HCl Not-Ta sen Immunizations Vaccine Route Administration Date Status Comme nts COVID-19 Pfizer BioNTech Vaccine Unknown 06/24/2022 Administered 1st 09/15/20 2nd 10/06/20 3rd 12/14/21 Influenza Unknown 09/21/2017 Refused Influenza Unknown 07/05/2018 Refused Influenza Unknown 06/01/2019 Administered Influenza Unknown 06/24/2022 Administered Social History Tobacco Use: Social History Observation [...] Polyneuropathy due to type 2 diabetes mellitus (062216493) Type 2 diabetes mellitus with diabetic polyneuropathy (E11.42) Active confirmed Problem Unspecified atherosclerosis of andreafski arteries of extremities, bilateral legs (I70.203) Active confirmed Vital Signs Blood pressure diastolic 60 mm Hg 09/04/2024 Height 5ft 10in in 09/04/2024 Blood pressure systolic 118 mm Hg 09/04/2024 Weight 235 lbs 09/04/2024 BMI 33.72 kg/m2 09/04/2024 Procedures Procedure Date Ordered Date Performed Result Body Sit e 64879-HTBMFTK NAIL, 6 OR MORE 09/04/2024 N/A 65274-UKOC SKIN LESIONS, OVER 4 09/04/2024 N/A 08034- Removal of Foreign Body, Subcut 09/04/2024 N/A Encounters Encounter Location Date Provider Diagnosis [address] [address] 12/01/2023 James Brooks Tinea unguium B35.1 ; Pain [...] right foot M21.371 and Unspecified atherosclerosis of andreafski arteries of extremities, bilateral legs I70.[address] [facility] [address] [address] 02/23/2024 James Brooks Tinea unguium B35.1 ; Pain [...] right foot M21.371 and Unspecified atherosclerosis of andreafski arteries of extremities, bilateral legs I70.[address] [address] 05/24/2024 James Brooks Tinea unguium B35.1 ; [...] right foot M21.371 and Unspecified atherosclerosis of andreafski arteries of extremities, bilateral legs I70.[address] [address] 09/04/2024 Emily Julius Type 2 diabetes mellitus with diabetic polyneuropathy E11.42 ; Tinea unguium B35.1 ; Puncture wound with foreign body, left foot, initial encounter S91.342A and Unspecified atherosclerosis of andreafski arteries of extremities, bilateral legs I70.[address] [address] 02/17/2024 James Brooks Assessments Encounter Date Diagnosis (ICD Code) Assessment Notes Treatment Notes Treatment Clinical Notes Section Notes 12/01/2023 Tinea unguium (ICD-10 - B35.1) 02/23/2024 Tinea unguium (ICD-10 - B35.1) 02/23/2024 Pain in right toe(s) (ICD-10 - M79.674) 05/24/2024 Tinea unguium (ICD-10 - B35.1) 09/04/2024 Type 2 diabetes mellitus with diabetic polyneuropathy (ICD-10 - E11.42) 09/04/2024 Tinea unguium (ICD-10 - B35.1) 09/04/2024 Puncture wound with foreign body, left foot, initial encounter (ICD-10 - S91.342A) 02/23/2024 Type 1 diabetes mellitus with diabetic polyneuropathy (ICD-10 - E10.42) 05/24/2024 Pain in right toe(s) (ICD-10 - M79.674) 12/01/2023 Pain in right toe(s) (ICD-10 - M79.674) 02/23/2024 Pain in left toe(s) (ICD-10 - M79.675) 12/01/2023 Type 1 diabetes mellitus with diabetic polyneuropathy (ICD-10 - E10.42) 09/04/2024 Unspecified atherosclerosis of andreafski arteries of extremities, bilateral legs (ICD-10 - I70.203) 05/24/2024 Type 1 diabetes mellitus with diabetic polyneuropathy (ICD-10 - E10.42) 05/24/2024 Pain in left toe(s) (ICD-10 - M79.675) 02/23/2024 Other hammer toe(s) (acquired), right foot (ICD-10 - M20.41) 12/01/2023 Pain in left toe(s) (ICD-10 - M79.675) 12/01/2023 Other hammer toe(s) (acquired), right foot (ICD-10 - M20.41) 02/23/2024 Other hammer toe(s) (acquired), left foot (ICD-10 - M20.42) 05/24/2024 Other hammer toe(s) (acquired), right foot (ICD-10 - M20.41) 05/24/2024 Other hammer toe(s) (acquired), left foot (ICD-10 - M20.42) 02/23/2024 Primary osteoarthritis, 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) 12/01/2023 Other hammer toe(s) (acquired), left foot (ICD-10 - M20.42) 12/01/2023 Primary osteoarthritis, 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) 02/23/2024 Primary osteoarthritis, right ankle and foot (ICD-10 - M19.071) 05/24/2024 Primary osteoarthritis, 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) 02/23/2024 Foot drop, right foot (ICD-10 - M21.371) 05/24/2024 Primary osteoarthritis, right ankle and foot (ICD-10 - M19.071) 12/01/2023 Primary osteoarthritis, right ankle and foot (ICD-10 - M19.071) 12/01/2023 Foot drop, right foot (ICD-10 - M21.371) 02/23/2024 Unspecified atherosclerosis of andreafski arteries of extremities, bilateral legs (ICD-10 - I70.203) 05/24/2024 Foot drop, right foot (ICD-10 - M21.371) 05/24/2024 Unspecified atherosclerosis of andreafski arteries of extremities, bilateral legs (ICD-10 - I70.203) 12/01/2023 Unspecified atherosclerosis of andreafski arteries of extremities, bilateral legs (ICD-10 - I70.203) Plan Of Treatment Pending Test Test Name Order Date X ray : Foot, right 3V 02/11/2018 34051-EOKIJSZ NAIL, 6 OR MORE 02/01/2018 26095-GAIPNYH NAIL, 6 OR MORE 04/08/2018 02528-JZYSUPT NAIL, 6 OR MORE 07/05/2018 20244-CZMNXBX NAIL, 6 OR MORE 09/04/2024 97533-OSKBHVY NAIL, 6 OR MORE 10/23/2014 61645-TMJAQJV NAIL, 6 OR MORE 01/22/2015 00313-DCYYRUR NAIL, 6 OR MORE 04/16/2015 72722-YGFGYYY NAIL, 6 OR MORE 07/12/2015 83546-OCIVFPY NAIL, 6 OR MORE 10/11/2015 84919-UJGQBDU NAIL, 6 OR MORE 01/24/2016 92674-PYEROIW NAIL, 6 OR MORE 04/24/2016 49369-DDZQNZK NAIL, 6 OR MORE 07/24/2016 21386-TQPPCAT NAIL, 6 OR MORE 10/02/2016 88636-NXSHXKO NAIL, 6 OR MORE 12/18/2016 38184-EUZRSHN NAIL, 6 OR MORE 03/23/2017 76823-TKDIJBR NAIL, 6 OR MORE 06/22/2017 25537-BDDXHWA NAIL, 6 OR MORE 09/21/2017 48437-UJPPQLI NAIL, 6 OR MORE 11/30/2017 11693-Qweeprwv Plate 07/12/2015 13932-Svymazvz Plate 01/22/2015 60166-Rpjvkaab Plate 10/23/2014 90852-Ixcjdrkc Plate 04/08/2018 85126- Debride <25 sq cm 02/11/2018 90827- Debride <25 sq cm 02/23/2018 62101- Debride <25 sq cm 02/01/2018 09388-SCFFOMV SKIN/TISSUE 09/27/2019 73287-ZATCPIB SKIN/TISSUE 03/29/2019 67108-FXUE SKIN LESIONS, OVER 4 10/02/19 22 82404-RGHN SKIN LESIONS, OVER 4 09/04/20 24 08572-QXNM SKIN LESIONS, OVER 4 10/24/19 21 37015-ZYVY SKIN LESIONS, OVER 4 04/08/20 18 93255-UGAJ SKIN LESIONS, OVER 4 07/05/20 18 66654-JTZQ SKIN LESIONS, OVER 4 02/29/20 19 70021-XECD SKIN LESIONS, OVER 4 02/02/20 18 06863-ZXPE SKIN LESIONS, OVER 4 03/23/20 17 71018-BGRA SKIN LESIONS, OVER 4 12/01/19 18 22204-ESDM SKIN LESIONS, OVER 4 09/21/19 18 15232-IITI SKIN LESIONS, OVER 4 06/22/20 17 96822-IIFZ SKIN LESIONS, OVER 4 12/19/19 17 91683-FCRC SKIN LESIONS, OVER 4 10/02/19 17 92783-ZNYZ SKIN LESIONS, OVER 4 07/24/20 16 86331-MAUL SKIN LESIONS, OVER 4 10/11/19 16 06642-MVXG SKIN LESIONS, OVER 4 04/24/20 16 47714-HLBE SKIN LESIONS, OVER 4 01/24/20 16 62775-NJAT SKIN LESIONS, 2 TO 4 07/12/20 15 72130-RKCD SKIN LESIONS, 2 TO 4 10/23/19 15 73063-RHJY SKIN LESIONS, 2 TO 4 01/23/20 15 15130-UAAG SKIN LESIONS, 2 TO 4 04/16/20 15 78026-JLHO SKIN LESIONS, 2 TO 4 01/16/20 21 14005-GWNU SKIN LESIONS, 2 TO 4 03/27/20 21 77853-JTPG SKIN LESIONS, 2 TO 4 06/23/20 21 27496-UEUH SKIN LESIONS, 2 TO 4 09/27/19 20 49549-NQUJ SKIN LESIONS, 2 TO 4 12/06/19 20 94247-MBWM SKIN LESIONS, 2 TO 4 02/28/20 20 96441-EBBJ SKIN LESIONS, 2 TO 4 05/20/20 20 86317-SXJX SKIN LESIONS, 2 TO 4 08/05/20 20 23670-KRDM SKIN LESIONS, 2 TO 4 04/02/20 22 60211-SDFS SKIN LESIONS, 2 TO 4 05/31/20 19 30314-TWKPUFMT OF HEMATOMA/FLUID 019 96036-ZVNVYISS OF HEMATOMA/FLUID 015 81656-AKZTFZZV OF HEMATOMA/FLUID 016 22464-XBRLKEIP OF HEMATOMA/FLUID 017 79293-VSMUHXQJ OF HEMATOMA/FLUID 018 87279- Removal of Foreign Body, Subcut 1 Next Appt Details Provider Name:Emily Johnston tay, 12/28/2024 03:00:00 PM, [address] [place], [address], Insurance Providers Payer Name Payer Address Payer Phone Subscriber Number Group Number Insured Name Patient Relationship to Insured Coverage Start Date Coverage End Date [facility] Medicare Complete [address] [address] [place] [address] [id number] Aleksandr Perez Self - patient is the insured Medical (General) History Medical History History ICD Code Back,Hip,and Knee pain Chicken pox High blood pressure Measles Mumps Poor circulation type II diabetes Surgical History Surgery Date(Month/Year) spleen spine rotater cuff back wound back surgery 07/2018 suprapubic surgery 02/22/2019 urology/implant sx 12/26/21 spinal cord 05/05/22 spinal cord 01/06/23 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
--- OUTSIDE RECORDS SUMMARY | 2024-11-06 06:17 | XMS_ITS ---
Author Organization [facility] Address [address] [place] [address] Care Team Providers Care Hand Touch Up Painter Name Role Phone Gordo Lanier DO Primary Care Provider Emily Chauhan [phone] Encounters Encounter Location Date Provider Diagnosis [address] [address] 09/04/2024 Emily Madrid Plan Of Treatment Next Appt Details Provider Name:Emily cross, 12/28/2024 03:00:00 PM, [address] [place] [address], [address], Progress Notes * Aleksandr PEREZ ODOB:1950 (74 yo M)Acc No.[id number]:09/04/2024 Progress Note Patient:?Aleksandr PEREZ Megan Provider:?Emily Madrid DPM :1950???Age:74 Y???Sex:Male Edson e:09/04/2024 Address:[address] [address], [place], [place] Pcp:Gordo Lanier DO Subjective: * Chief Complaints: [...] Madrid DPM Date:?1 Generated for Demian august/Cordell/Robertoitting on:?11/06/2024 06:16 AM EST
[2024-11-06 06:54] LABS: Basophils Absolute Auto 0.1 X10*3/uL (0.0-0.2); Eosinophils Absolute Auto 0.5 X10*3/uL (0.0-0.4); Eosinophils Percent Auto 4.6 % (0-4); Hematocrit 26.3 % (42.0-52.0); Hemoglobin 8.8 g/dl (14.0-18.0); Imm Gran Abs Auto 0.06 X10*3/uL (0.00-0.03); Imm Gran Pct Auto 0.6 % (0.0-0.4); Lymphocytes Absolute Auto 2.1 X10*3/uL (1.2-4.9); Lymphocytes Percent Auto 19.4 % (20-40); MANUAL DIFF FLAG SCAN; Mean Corpuscular HGB Conc 33.5 g/dl (31.0-36.0); Mean Corpuscular Hemoglobin 31.5 pg (27.0-33.0); Mean Corpuscular Volume 94.3 fL (80.0-98.0); Mean Platelet Volume 10.2 fL (9.4-12.4); Monocytes Absolute Auto 1.8 X10*3/uL (0.1-1.2); Monocytes Percent Auto 16.4 % (2-11); Neutrophils Absolute Auto 6.2 x10*3/uL (2.0-8.3); Platelet Count 285 X10*3/uL (160-400); Red Blood Count 2.79 X10*6/uL (4.60-5.80); Red Cell Distribution Width 13.2 % (11.0-16.0); SCAN SMEAR FLAG 1; White Blood Count 10.7 X10*3/uL (4.8-10.8)
[2024-11-06 07:01] LABS: Anion Gap 12 (12-20); Blood Urea Nitrogen 60 mg/dL (9-16); Calcium 8.3 mg/dL (8.4-10.2); Carbon Dioxide 20 mmol/L (22-29); Chloride 114 mmol/L (96-108); Estimated Glomerular Filt Rate 23; Glucose Random 159 mg/dL (60-115); Potassium 4.2 mmol/L (3.3-5.1); Sodium 142 mmol/L (135-145)
[2024-11-06 07:29] LABS: SLIDE REVIEW VERIFIED
== END 2024-11-06 06:14 | disposition home or self-care (01) ==
LOC: HO.MMNH3L 06:13
PROVIDERS: Visit Provider Nurse Practitioner
DX: N17.9 Acute kidney failure, unspecified (principal)
CPT/HCPCS: 36415; 80048; 85025

== ENCOUNTER 2024-11-10 07:38 | Outpatient (REF) | payer MEDICARE, MEDICAID, SELFPAY ==
--- OUTSIDE RECORDS SUMMARY | 2024-11-10 07:42 | XMS_ITS | Encounter Summary ---
Author Organization [facility], Address [address] [place] [address] Phone Care Team Providers Care Gunite Mixer Name Role Phone Maico Garcia Primary Care Provider [phone] Encounter Details Date Type Department Care Team (Late st Contact Info) Description 10/01/2022 Office Communication [facility], [address] [place] [id number] Jose M Martinez MD [address] [place] [address] Social History Tobacco Use Types [...] - 10/02/2022 8:34 AM EST Faxed to [phone] documented in this encounter Plan of Treatment Not on file documented as of this encounter Visit Diagnoses Not on filedocumented in this encounter Care Teams Gunite Mixer Relationship Specialty Start Date End Date Maico Garcia PA [address] [place] [address] PCP - General Physician Kettle Tender 08/03/22 documented as of this encounter
--- OUTSIDE RECORDS SUMMARY | 2024-11-10 07:42 | XMS_ITS | Clinical Summary ---
Author Organization [address] [facility] Address [address] [place] [address] Phone Care Team Providers Care Sales Service Coordinator Name Role Phone Physician, No Pcp Primary [...] Team Description 08/15/2024 Telephone Orthopedic Surgery - [place] [address] [address] Neftali Laguerre DPM order from Last 3 Months Surgical History Surgery Date Site/Laterality Comments OTHER SURGICAL HISTORY PROCEDURE:SPLENECTOMY BACK SURGERY PROCEDURE:BACK SURGERY, 16 back surgeries APPENDECTOMY CHOLECYSTECTOMY ROTATOR CUFF REPAIR Bilateral TOE AMPUTATION Left left hallux Medical History Medical History Date Comments GERD (gastroesophageal reflux disease) DX:GERD (gastroesophageal reflux disease) Hypertension DX:Hypertension Anxiety DX:Anxiety Depression DX:Depression Diabetes mellitus (CMS/HCC) DX:D iabetes mellitus (HCC) Chronic kidney disease BPH (benign prostatic hyperplasia) Peripheral vascular disease (CMS/HCC) GERD (gastroesophageal reflux disease) Diabetes, polyneuropathy (CMS/HCC) Spinal stenosis Neurogenic bladder Family History Medical [...] care for your loved ones. For example, professor of early childhood education or elderly care for an older adult? [...] Procedure Name Priority Date/Time Associated Diagnosis Comments BASIC METABOLIC PANEL Routine 08/10/2024 6:39 AM EST HEMOGLOBIN A1C Add-On 07/26/2024 5:37 AM EST LIPID PANEL Routine 06/05/1999 from Last 3 Months or Most Recently Relevant to Health Maintenance Results * (ABNORMAL) Basic metabolic panel (08/10/2024 6:39 AM EST) Sodium 143 133 - 145 mmol/L LAB [...] ORDERABLES Final Re sult Performing Organization Address [facility]/ZIP Co de Phone Number [facility] [address] [place] [address], [place] [phone] * Hemoglobin A1c (07/26/2024 5:37 AM EST) Pathologist [facility] Hemoglobin A1C 4.8 <6.5 % LAB CHEMISTRY METHOD 07/26/2024 1:04 PM EST [facility] Mean Bld Glu Estim. 91 mg/dL LAB CHEMISTRY METHOD 07/26/2024 1:04 PM EST [facility] Blood Venous blood specimen / Unknown Venipuncture / Unknown 07/26/2024 5:37 AM EST 07/26/2024 6:32 AM EST Ryanne Evans MD LAB BLOOD ORDERABLES Final Resul t Performing Organization Address [facility]/ZIP Co de Phone Number [facility] [address] [place] [address], [place] [phone] * (ABNORMAL) Lipid panel (06/05/1999) LDL/HDL Ratio [...] Documents on File Type Date Recorded Patient Family Day Care Worker Expl anation Advance Directives and Living Will [...] DIRECTIVE Health Care Decision (hx) 08/14/2019 AD VANITA DIRECTIVE * Full Code - Default (Latest [...] Perez Daughter Health Care Agent Care Teams Sales Service Coordinator Relationship Specialty Start Date End Date Physician, No Pcp PCP - General 07/25/24
--- OUTSIDE RECORDS SUMMARY | 2024-11-10 07:42 | XMS_ITS | Clinical Summary ---
Author Organization [facility], Address [address] [facility] [address] [place] [address] Phone Care Team Providers Care Pier Hand Helper Name Role Phone Maico Garcia Primary Care Provider [phone] Allergies No known active allergies Medications amLODIPine [...] Problem Noted Date Diagnosed Date Hyperkalemia 10/01/2022 senior care use of nonsteroidal anti-inflammatorie s 10/01/2022 Type [...] age to complete this topic Insurance MEDICARE [facility] MEDICARE MEDICAID [place] Care Teams Pier Hand Helper Relationship Specialty Start Date End Date Maico Garcia PA [address] [place] [id number] PCP - General Physician Supervisor Chlorine Liquefaction 08/03/22
--- OUTSIDE RECORDS SUMMARY | 2024-11-10 07:42 | XMS_ITS | Patient Health Record ---
Author Organization [facility] Address [address] [place] [place] [address] Care Team Providers Care Accounting System Expert Name Role Phone Gordo Lanier DO Primary Care Provider Emily Chauhan Unavailable [phone] James Brooks Unavailable [phone] Allergies No Known Allergies Results Component Value Reference Range Notes HEMOGLOBIN A1C (GLYCOHEMOGLO BIN) Reviewed date:09/04/2024 11:51:01 AM Interpretation: Performing Lab: Notes/Report: TOTAL HEMOGLOBIN (HGBA1C) 4.7 HEMOGLOBIN A1C (GLYCOHEMOGLO BIN) Reviewed date:12/01/2023 12:04:54 PM Interpretation: Performing Lab: Notes/Report: HEMOGLOBIN A1C % (HH) 6.1 Reason For Referral No Information Medications Medication [...] A DAY Oral for 30 Not-Taking Ergocalciferol 07840 UNIT 1 capsule Orally Once a day [...] Polyneuropathy due to type 2 diabetes mellitus (705602926) Type 2 diabetes mellitus with diabetic polyneuropathy (E11.42) Active confirmed Problem Bilateral atherosclerosis of arteries of lower limbs (disorder) (03649654171776794 ) Unspecified atherosclerosis of cahuilla arteries of extremities, bilateral legs (I70.203) Active confirmed Vital Signs Blood pressure diastolic 60 mm Hg 09/04/2024 Height 5ft 10in in 09/04/2024 Blood pressure systolic 118 mm Hg 09/04/2024 Weight 235 lbs 09/04/2024 BMI 33.72 kg/m2 09/04/2024 Procedures Procedure Date Ordered Date Performed Result Body Sit e 23827-YSWTZKD NAIL, 6 OR MORE 09/04/2024 N/A 95068-KQQY SKIN LESIONS, OVER 4 09/04/2024 N/A 27317- Removal of Foreign Body, Subcut 09/04/2024 N/A Encounters Encounter [facility] Date [facility] [address] 12/01/[facility]23 JamesHouser Tinea unguium B35.1 ; Pain in right [...] right foot M21.371 and Unspecified atherosclerosis of [place]ahu[place] arteries of extremities, bilateral legs I70.203 [facility] [address] 02/23/2024 James Brooks Tinea unguium B35.1 ; [...] right foot M21.371 and Unspecified atherosclerosis of cahuilla arteries of extremities, bilateral legs I70.[address] [address] 05/24/2024 James Brooks Tinea unguium B35.1 ; [...] right foot M21.371 and Unspecified atherosclerosis of cahuilla arteries of extremities, bilateral legs I70.[address] [address] 09/04/2024 Emily Julius Type 2 diabetes mellitus with diabetic polyneuropathy E11.42 ; Tinea unguium B35.1 ; Puncture wound with foreign body, left foot, initial encounter S91.342A and Unspecified atherosclerosis of cahuilla arteries of extremities, bilateral legs I70.[address] [address] 02/17/2024 James Brooks Assessments Encounter Date Diagnosis [...] (ICD-10 - E10.42) 09/04/2024 Unspecified atherosclerosis of cahuilla arteries of extremities, bilateral legs (ICD-10 - [...] (ICD-10 - M21.371) 02/23/2024 Unspecified atherosclerosis of cahuilla arteries of extremities, bilateral legs (ICD-10 - I70.203) 05/24/2024 Foot drop, right foot (ICD-10 - M21.371) 05/24/2024 Unspecified atherosclerosis of cahuilla arteries of extremities, bilateral legs (ICD-10 - I70.203) 12/01/2023 Unspecified atherosclerosis of cahuilla arteries of extremities, bilateral legs (ICD-10 - I70.203) Plan Of Treatment Pending Test Test Name Order Date X ray : Foot, right 3V 02/11/2018 58885-BHNJUZY NAIL, 6 OR MORE 02/01/2018 66179-VPYBZRM NAIL, 6 OR MORE 04/08/2018 29448-MNEZWXV NAIL, 6 OR MORE 07/05/2018 20719-EYUTXFJ NAIL, 6 OR MORE 09/04/2024 29317-WWEEAKV NAIL, 6 OR MORE 10/23/2014 10302-EKMJVYJ NAIL, 6 OR MORE 01/22/2015 70449-ZXUSBSI NAIL, 6 OR MORE 04/16/2015 16236-XGPZKZI NAIL, 6 OR MORE 07/12/2015 65334-HFZRWDE NAIL, 6 OR MORE 10/11/2015 23161-TEXTDGT NAIL, 6 OR MORE 01/24/2016 54090-WJAXHEF NAIL, 6 OR MORE 04/24/2016 38356-UBKXFLK NAIL, 6 OR MORE 07/24/2016 07363-UCUANVJ NAIL, 6 OR MORE 10/02/2016 76188-QQTSMGC NAIL, 6 OR MORE 12/18/2016 29445-ZEQCXMQ NAIL, 6 OR MORE 03/23/2017 84098-EZGSALL NAIL, 6 OR MORE 06/22/2017 60403-YWPXMMA NAIL, 6 OR MORE 09/21/2017 92270-MMTCLVI NAIL, 6 OR MORE 11/30/2017 11304-Yioadccv Plate 07/12/2015 93604-Mazxxefb Plate 01/22/2015 28491-Fdzqalta Plate 10/23/2014 16382-Evneqrnj Plate 04/08/2018 11108- Debride <25 sq cm 02/11/2018 85357- Debride <25 sq cm 02/23/2018 23536- Debride <25 sq cm 02/01/2018 43601-BBVAQJG SKIN/TISSUE 09/27/2019 39411-VBKUHYT SKIN/TISSUE 03/29/2019 35880-BMNN SKIN LESIONS, OVER 4 10/02/19 22 34919-GMHW SKIN LESIONS, OVER 4 09/04/20 24 76615-XKXQ SKIN LESIONS, OVER 4 10/24/19 21 17860-HMQG SKIN LESIONS, OVER 4 04/08/20 18 74101-QMYH SKIN LESIONS, OVER 4 07/05/20 18 39067-LFBV SKIN LESIONS, OVER 4 02/29/20 19 33369-BQSZ SKIN LESIONS, OVER 4 02/02/20 18 77960-QDYK SKIN LESIONS, OVER 4 03/23/20 17 19307-HEMR SKIN LESIONS, OVER 4 12/01/19 18 18020-KZFV SKIN LESIONS, OVER 4 09/21/19 18 59545-RVFF SKIN LESIONS, OVER 4 06/22/20 17 13180-QYLS SKIN LESIONS, OVER 4 12/19/19 17 81897-PVYI SKIN LESIONS, OVER 4 10/02/19 17 97996-KBDV SKIN LESIONS, OVER 4 07/24/20 16 73310-KVEW SKIN LESIONS, OVER 4 10/11/19 16 69887-MZEI SKIN LESIONS, OVER 4 04/24/20 16 93294-RHAO SKIN LESIONS, OVER 4 01/24/20 16 57156-XGGM SKIN LESIONS, 2 TO 4 07/12/20 15 98931-UFOP SKIN LESIONS, 2 TO 4 10/23/19 15 43186-YXGC SKIN LESIONS, 2 TO 4 01/23/20 15 42927-RNWL SKIN LESIONS, 2 TO 4 04/16/20 15 33914-MBRT SKIN LESIONS, 2 TO 4 01/16/20 21 74393-ADPI SKIN LESIONS, 2 TO 4 03/27/20 21 10173-JMNS SKIN LESIONS, 2 TO 4 06/23/20 21 51458-BTRK SKIN LESIONS, 2 TO 4 09/27/19 20 25660-LQIB SKIN LESIONS, 2 TO 4 12/06/19 20 62999-ZSRP SKIN LESIONS, 2 TO 4 02/28/20 20 87970-MRYD SKIN LESIONS, 2 TO 4 05/20/20 20 49969-NMHD SKIN LESIONS, 2 TO 4 08/05/20 20 48970-OIGV SKIN LESIONS, 2 TO 4 04/02/20 22 99962-FSGN SKIN LESIONS, 2 TO 4 05/31/20 19 83197-BVWKVUWP OF HEMATOMA/FLUID 019 96618-LEGAJTUW OF HEMATOMA/FLUID 015 40851-ARBIPUKV OF HEMATOMA/FLUID 016 07269-OIVALPPJ OF HEMATOMA/FLUID 017 24476-CRUYCQZF OF HEMATOMA/FLUID 018 00161- Removal of Foreign Body, Subcut 1 Next Appt Details Provider Name:Emily cross, 12/28/2024 03:00:00 PM, [address] [place], [address], Insurance Providers Payer Name Payer Address Payer Phone Subscriber Number Group Number Insured Name Patient Relationship to Insured Coverage Start Date Coverage End Date [facility] Medicare Complete [address] [address] [place] [address] [phone] [id number] Aleksandr Perez Self - patient is the [...] [facility] collapsed at home [facility] 03/2018 [facility] - Kidney Failure, had to be revived 03/29/2016
--- OUTSIDE RECORDS SUMMARY | 2024-11-10 07:42 | XMS_ITS ---
[facility] Organization [facility] Address [address] [place] [address] Care Team Providers Care Cold Roller Name Role Phone Gordo Lanier DO Primary Care Provider Emily Chauhan Unavailable [phone] BrooksJames Unavailable [phone] Allergies No Known Allergies REASON FOR VISIT [...] innersoles for 1 year Dx: Active Ergocalciferol 98567 UNIT 1 capsule Orally Once a day [...] 024 Encounters Encounter Location Date Provider Diagnosis [facility] [address] [place] [address] 05/24/2024 James Brooks Tinea unguium B35.1 ; [...] right foot M21.371 and Unspecified atherosclerosis of [place] arteries of extremities, bilateral legs I70.203 Assessments [...] (ICD-10 - M21.371) 05/24/2024 Unspecified atherosclerosis of [place] arteries of extremities, bilateral legs (ICD-10 - I70.203) Plan Of Treatment Medication Medication Name Sig Start Date Stop Date Notes Extra Depth Diabetic Shoes w ith 3 Pair Custom heat-molded multi-density innersoles for 1 year Dx: Next Appt Details Follow Up: 3 Months, Reason: Provider Name:Emily cross, 12/28/2024 03:00:00 PM, [address] [place] [address], [place], [phone], Procedure Notes * Category Sub-Category Detail Notes [...] as necessary. Patient chooses, no pharmaceutical tx (60612) Keratoma Treatment Parring or Cutting o f Benign Hyperkeratotic Lesion(s) 59948 (2-4 Lesions) - The Benign hyperkeratotic lesions, as described above were pared, and/or cut utilizing a sterile #15 blade, tissue nippers, and/or dremel Progress Notes * Aleksandr PEREZ ODOB:1950 (73 yo M)Acc No.[id number]:05/24/2024 Progress Note Patient:?Aleksandr Perez Provider:?James Brooks DPM :1950???Age:73 Y???Sex:Male Edson e:05/24/2024 Address:[place] [address] Pcp:Gordo Lanier DO Subjective: * Chief Complaints: * ??? Painful nail(s) aggrevat ed by shoes and causing difficulty standing/walking. * HPI: ???Painful Nails:?Pt States Last PCP Visit:?Date:?11/26/2023 ?Misc:?recent hospitalization at [facility] 11/11/[address] Campos --14th spinal [...] - Kidney Failure, had to be revived 03/29/2016[facility] 03/2018[facility] collapsed at home 06/2018[facility] back sx 07/2018[facility] stay, [facility] for 6 weeks 07/2019 * Family History:?Mother: [...] PO FIVE TIMES A DAY Oral Ergocalciferol 50484 UNIT Capsule 1 capsule Orally Once a [...] FIVE TIMES A DAY Oral Not-Taking/PRN Ergocalciferol 49288 UNIT Capsule 1 capsule Orally Once a [...] drop, right foot - M21.371?10.?Unspecified atherosclerosis of [place] arteries of extremities, bilateral legs - I70.203? [...] as necessary. Patient chooses, no pharmaceutical tx (23452).?Keratoma Treatment:?Parring or Cutting of Benign Hyperkeratotic Lesion(s)?60851 (2-4 Lesions) - The Benign hyperkeratotic lesions, as described above were pared, and/or cut utilizing a sterile #15 blade, tissue nippers, and/or dremel.? * Procedure Codes:?34074 DEBRI DE NAIL, 6 OR MORE, Modifiers: XS 65724 TRIM SKIN LESIONS, 2 TO 4, Modifiers: XS * Follow Up:?3 Months * Images: * Sign off status: Completed true * Provider:?James Brooks DPM Date:? 024 Generated for Demian august/Cordell/eTmarcos on:?11/10/2024 07:41 AM EST History and Physical Notes * HPI (History of Present Illness) Category Sub-Category Detail Notes Category Not es Painful Nails Misc: recent hospitali zation at [facility] 11/11/[address] Campos --14th spinal [...]
--- OUTSIDE RECORDS SUMMARY | 2024-11-10 07:42 | XMS_ITS ---
Author Organization [facility] Address [address] [place] [address] Care Team Providers Care Budget Clerk Name Role Phone Gordo Lanier DO Primary Care Provider Emily Chauhan [phone] Encounters Encounter Location Date Provider Diagnosis [address] [address] 09/04/2024 Emily Madrid Plan Of Treatment Next Appt Details Provider Name:Emily cross, 12/28/2024 03:00:00 PM, [address] [place] [address], [phone], Progress Notes * Aleksandr PEREZ ODOB:1950 (74 yo M)Acc No.[id number]:09/04/2024 Progress Note Patient:?Aleksandr PEREZ Megan Provider:?Emily Madrid DPM :1950???Age:74 Y???Sex:Male Edson e:09/04/2024 Address:[place] [address], [place], [place] Pcp:Gordo Lanier DO Subjective: * Chief Complaints: [...] Madrid DPM Date:?1 Generated for Demian august/Cordell/Robertoitting on:?11/10/2024 07:42 AM EST
--- OUTSIDE RECORDS SUMMARY | 2024-11-10 07:43 | XMS_ITS ---
Author Organization [facility] Address [address] [facility] [place] [address] Care Team Providers Care Educational Adviser Name Role Phone Gordo Lanier DO Primary Care Provider Emily Chauhan Unavailable [phone] Allergies No Known Allergies REASON FOR VISIT [...] A DAY Oral for 30 Not-Taking Ergocalciferol 62968 UNIT 1 capsule Orally Once a day [...] Polyneuropathy due to type 2 diabetes mellitus (810926286) Type 2 diabetes mellitus with diabetic polyneuropathy (E11.42) Active confirmed Vital Signs Height 5ft 10in in 09/04/2024 Weight 235 lbs 09/04/2024 BMI 33.72 kg/m2 09/04/2024 Blood pressure systolic 118 mm Hg 09/04/20 24 Blood pressure diastolic 60 mm Hg 024 Procedures Procedure Date Ordered Date Performed Result Body Sit e 86591-REFLITU NAIL, 6 OR MORE 09/04/2024 N/A 42847-BTLP SKIN LESIONS, OVER 4 09/04/2024 N/A 97889- Removal of Foreign Body, Subcut 09/04/2024 N/A Encounters Encounter Location Date Provider Diagnosis [facility] [address] [address] 09/04/2024 Emily Madrid Type 2 diabetes mellitus with diabetic polyneuropathy E11.42 ; Tinea unguium B35.1 ; Puncture wound with foreign body, left foot, initial encounter S91.342A and Unspecified atherosclerosis of [place] arteries of extremities, bilateral legs I70.203 Assessments Encounter Date Diagnosis (ICD Code) Assessment Notes Treatment Notes Treatment Clinical Notes Section Notes 09/04/2024 Type 2 diabetes mellitus with diabetic polyneuropathy (ICD-10 - E11.42) 09/04/2024 Tinea unguium (ICD-10 - B35.1) 09/04/2024 Puncture wound with foreign body, left foot, initial encounter (ICD-10 - S91.342A) 09/04/2024 Unspecified atherosclerosis of [place] arteries of extremities, bilateral legs (ICD-10 - I70.203) Plan Of Treatment Pending Test Test Name Order Date 22886-YARPCJL NAIL, 6 OR MORE 09/04/2024 15662-HBGL SKIN LESIONS, OVER 4 09/04/20 20687- Removal of Foreign Body, Subcut 1 Next Appt Details Follow Up: 4 Months, Reason: Provider Name:Emily cross, 12/28/2024 03:00:00 PM, [address] [place] [address], [phone], Procedure Notes * Category Sub-Category Detail Notes [...] discussed and dispensed, Patient tolerated procedure well (19589) Location of foreign body As per exam [...] of a nail nipper and/or dremel-type grinder operator external tool, to a more viable healthy nail plate [...] to maintain effectiveness in symptomatic relief - 76260 Keratoma Treatment Parring or Cutting o f [...] instrumentation by the physician of record - 25280 Progress Notes * MINHSUSHILAAleksandr ODOB:1950 (74 yo M)Acc No.[id number]:09/04/2024 Progress Note Patient:?Aleksandr PEREZ Megan Provider:?Emily Madrid DPM :1950???Age:74 Y???Sex:Male Edson e:09/04/2024 Address:[address] Pcp:Gordo Lanier, DO Subjective: * Chief Complaints: [...] - Kidney Failure, had to be revived 03/29/2016[facility] 03/2018[facility] home 06/2018[facility] back sx 07/2018[facility] 07[facility]2019 * Family History:?Mother: [...] PO FIVE TIMES A DAY Oral Ergocalciferol 64714 UNIT Capsule 1 capsule Orally Once a [...] FIVE TIMES A DAY Oral Not-Taking/PRN Ergocalciferol 35501 UNIT Capsule 1 capsule Orally Once a [...] foot, initial encounter - S91.342A???4.?Unspecified atherosclerosis of [place] arteries of extremities, bilateral legs - I70.203??? Plan: * Treatment: 2.?Puncture wound with forei gn body, left foot, initial encounter?Procedure: 03174- Removal of Foreign Body, Subcut * Procedures:?Debride [...] of a nail nipper and/or dremel-type grinder operator external tool, to a more viable healthy nail plate [...] to maintain effectiveness in symptomatic relief - 89987.?Foreign Body Removal:?Anesthesia?was not utilized - NEUROPATHY: patient [...] discussed and dispensed, Patient tolerated procedure well (64790).?Keratoma Treatment:?Parring or Cutting of Benign Hyperkeratotic Lesion(s)?(-57) [...] instrumentation by the physician of record - 88605.? * Procedure Codes:?60270 DEBRI DE NAIL, 6 OR MORE, Modifiers: XS 09162 REMOVAL OF FOOT FOREIGN BODY, Modifiers: XS 22426 TRIM SKIN LESIONS, OVER 4, Modifiers: XS * Follow Up:?4 Months * Images: * Sign off status: Completed true * Provider:?Emily Madrid DPM Date:? Generated for Demian august/Cordell/Boogie on:?11/10/2024 07:42 AM EST History and Physical Notes * [...]
[2024-11-10 07:49] LABS: MANUAL DIFF FLAG NO
[2024-11-10 08:48] LABS: Basophils Absolute Auto 0.1 X10*3/uL (0.0-0.2); Basophils Percent Auto 1.1 % (0-2); Eosinophils Absolute Auto 0.6 X10*3/uL (0.0-0.4); Eosinophils Percent Auto 6.1 % (0-4); Hematocrit 28.6 % (42.0-52.0); Hemoglobin 9.8 g/dl (14.0-18.0); Imm Gran Abs Auto 0.06 X10*3/uL (0.00-0.03); Imm Gran Pct Auto 0.6 % (0.0-0.4); Lymphocytes Absolute Auto 2.2 X10*3/uL (1.2-4.9); Lymphocytes Percent Auto 20.9 % (20-40); Mean Corpuscular HGB Conc 34.3 g/dl (31.0-36.0); Mean Corpuscular Hemoglobin 31.2 pg (27.0-33.0); Mean Corpuscular Volume 91.1 fL (80.0-98.0); Mean Platelet Volume 10.4 fL (9.4-12.4); Monocytes Absolute Auto 1.2 X10*3/uL (0.1-1.2); Monocytes Percent Auto 11.2 % (2-11); Neutrophils Absolute Auto 6.2 x10*3/uL (2.0-8.3); Neutrophils Percent Auto 60.1 % (45-73); Platelet Count 328 X10*3/uL (160-400); Red Blood Count 3.14 X10*6/uL (4.60-5.80); Red Cell Distribution Width 13.2 % (11.0-16.0); White Blood Count 10.4 X10*3/uL (4.8-10.8)
[2024-11-10 09:09] LABS: Anion Gap 13 (12-20); Blood Urea Nitrogen 63 mg/dL (9-16); Calcium 8.8 mg/dL (8.4-10.2); Carbon Dioxide 21 mmol/L (22-29); Chloride 112 mmol/L (96-108); Estimated Glomerular Filt Rate 27; Glucose Random 88 mg/dL (60-115); Potassium 4.3 mmol/L (3.3-5.1); Sodium 142 mmol/L (135-145)
[2024-11-13 19:04] LABS: Complement C3 122 mg/dL (82-185)
== END 2024-11-10 07:39 | disposition home or self-care (01) ==
LOC: HO.MMNH3L 07:38
PROVIDERS: Visit Provider Student in an Organized Health Care Education/Training Program
DX: I10 Essential (primary) hypertension (principal)
CPT/HCPCS: 36415; 80048; 82550; 85025; 86160

== ENCOUNTER 2024-11-29 17:17 | Emergency (ER) | payer MEDICARE, MEDICAID, SELFPAY ==
--- NOTE | ~2024-11-29 | XR_ITS ---
CLINICAL HISTORY: cough Single view of the chest. Findings: Heart size is upper limits of normal. There is mild elevation of the left hemidiaphragm. Atelectasis or mild consolidation left lower lung. No definite pleural effusion. There is mild nonspecific bronchial wall thickening. Impression: Mild elevation left hemidiaphragm. Atelectasis or mild consolidation left lower lung consider follow-up. Mild nonspecific bronchial wall thickening. This document has been electronically signed by: Tello Segura MD on 11/29/2024 18:55:21
--- NOTE | 2024-11-29 17:34 | ECG_ITS ---
Test Reason : EDEMA Blood Pressure : */* mmHG Vent. Rate : 81 BPM Atrial Rate : 81 BPM P-R Int : 316 ms QRS Dur : 88 ms QT Int : 352 ms P-R-T Axes : 118 -30 66 degrees QTcB Int : 408 ms Sinus rhythm with 1st degree A-V block Left axis deviation Pulmonary disease pattern Abnormal ECG No previous ECGs available Referred By: Mitali More Electronically Signed By: DENNIS BAILON MD
[2024-11-29 17:36] VITALS: BP 162/85; PULSE 80; RESP 16; O2SAT 98; BMI 30.4
[2024-11-29 18:47] LABS: MANUAL DIFF FLAG NO
[2024-11-29 18:49] LABS: Basophils Absolute Auto 0.1 X10*3/uL (0.0-0.2); Basophils Percent Auto 0.8 % (0-2); Eosinophils Absolute Auto 0.5 X10*3/uL (0.0-0.4); Eosinophils Percent Auto 4.3 % (0-4); Hematocrit 28.5 % (42.0-52.0); Imm Gran Abs Auto 0.04 X10*3/uL (0.00-0.03); Imm Gran Pct Auto 0.3 % (0.0-0.4); Lymphocytes Absolute Auto 2.2 X10*3/uL (1.2-4.9); Lymphocytes Percent Auto 18.4 % (20-40); Mean Corpuscular HGB Conc 35.1 g/dl (31.0-36.0); Mean Corpuscular Hemoglobin 31.5 pg (27.0-33.0); Mean Corpuscular Volume 89.9 fL (80.0-98.0); Mean Platelet Volume 9.5 fL (9.4-12.4); Monocytes Absolute Auto 1.4 X10*3/uL (0.1-1.2); Monocytes Percent Auto 11.4 % (2-11); Neutrophils Absolute Auto 7.8 x10*3/uL (2.0-8.3); Neutrophils Percent Auto 64.8 % (45-73); Platelet Count 317 X10*3/uL (160-400); Red Blood Count 3.17 X10*6/uL (4.60-5.80); Red Cell Distribution Width 12.3 % (11.0-16.0)
[2024-11-29 19:04] LABS: Alanine Aminotransferase 18 U/L (0-40); Albumin Level 3.3 g/dL (3.5-5.0); Alkaline Phosphatase 172 U/L (39-117); Anion Gap 10 (12-20); Aspartate Amino Transferase 26 U/L (5-37); Bilirubin Total 0.4 mg/dL (0.0-1.0); Blood Urea Nitrogen 44 mg/dL (9-16); Carbon Dioxide 21 mmol/L (22-29); Chloride 115 mmol/L (96-108); Creatinine Clr Calc Pharmacy 31.8; Estimated Glomerular Filt Rate 28; Glucose Random 99 mg/dL (60-115); Magnesium 1.8 mg/dL (1.6-2.6); Potassium 4.2 mmol/L (3.3-5.1); Sodium 142 mmol/L (135-145); Total Protein 6.7 g/dL (6.5-8.0)
[2024-11-29 19:08] LABS: B Type Natriuretic Peptide 25 pg/mL (<100)
[2024-11-29 19:09] LABS: Troponin-I High Sensitivity 14.1 ng/L (<3.5-35.0)
[2024-11-29 19:20] VITALS: BP 146/71; PULSE 71; RESP 14; O2SAT 98
[2024-11-29 19:25] LABS: Influenza A PCR NEGATIVE (Negative); Influenza B PCR NEGATIVE (Negative); Resp Syncy Virus RNA Qual PCR NEGATIVE (Negative); SARS COV2 PCR INHOUSE NEGATIVE (Negative)
[2024-11-29 20:44] LABS: Appearance Urine Cloudy; Color Urine Yellow; Glucose Urine UA Negative (Negative); Leukocyte Esterase Urine Large (3+) (Negative); Nitrite Urine Negative (Negative); PH 5.5 (5.0-9.0); Specific Gravity - Urine 1.015 (1.005-1.025); UMIC TRIGGER UACC YES; Urine Blood Small (1+) (Negative); Urine Ketones Negative (Negative); Urine Protein 100 (2+) mg/dL (Neg-Trace)
[2024-11-29 20:59] LABS: Bacteria Urine 4+ (None Seen); Hyaline Casts Urine 0-2 /LPF (0-2); RBC Urine 0-2 /HPF (0-2); Squamous Epithelial Cell Urine 0-2 /HPF (0-2); UACC Culture Trigger YES; WBC Urine >50 /HPF (0-5)
[2024-11-29 21:06] LABS: Troponin-I High Sensitivity 17.5 ng/L (<3.5-35.0)
[2024-11-29 22:16] VITALS: BP 149/72; PULSE 73; RESP 12; O2SAT 97
--- NOTE | 2024-11-29 22:33 | PC.NURSE ---
Patient ambulated with steady gait with walker. Patient was able to sit himself up, push himself up from sit to stand, and ambulated down hallway and back to room without difficulty. Walked with this RN & Jesus (chief clerk shelter). ADÁN Stone aware.
[2024-11-29 23:52] VITALS: BP 129/75; PULSE 73; RESP 18; TEMP 37; O2SAT 97
[2024-11-30] VITALS (9 sets, daily range): BP systolic 130–169; BP diastolic 58–77; PULSE 61–68; RESP 14–18; TEMP 36.2–36.6; O2SAT 96–99
--- NOTE | 2024-11-30 00:55 | ED_ITS ---
HPI - General Adult General Chief complaint: General Medical Stated complaint: light headed/ dizzy, edema in legs/ankles Time Seen by Provider: 11/29/24 17:34 Source: patient Limitations: no limitations History of Present Illness ED Provider: Mitali More PA-C HPI narrative: 74-year-old male with a history of dependent edema, presents from home with generalizedweakness since this morning. Denies recent cough or cold symptoms, fever, nausea, vomiting diarrhea. No dysuria. No chest pain no shortness of breath. Patient states he has chronic bilateral lower extremity swelling. Related Data Allergies Allergy/AdvReac Type Severity Reaction Status Date / Time No Known Allergies Allergy Verified 11/29/24 17:37 Review of Systems 2 Review of Systems: Yes all other systems are reviewed and are negative Constitutional: Constitutional: Reports fatigue, Denies fever(s) and Reports malaise Cardiovascular: Cardiovascular: Denies chest pain and Denies dyspnea Respiratory: Respiratory: Denies cough and Denies dyspnea Gastrointestinal: Gastrointestinal: Denies abdominal pain, Denies diarrhea, Denies nausea and Denies vomiting Genitourinary: Genitourinary: Denies dysuria Endocrine: Endocrine: Reports fatigue COUNTS INCLUDE 234 BEDS AT THE [facility] Past Medical History Attestation statement: The following information was validated with the patient. Social History Social History Smoked in Last 30 Days: No Use of substances other than those prescribed or required for medical reasons: No Advance Directives: Yes Advance Directives Information Provided: Yes Advance Directives on File: No Do you have a plan to hurt others: No Plan Physical Exam ED Vital Signs: Vital Signs - 24 hr 11/29/24 17:36 11/29/24 19:20 11/29/24 22:16 Temperature Pulse Rate 80 71 73 Respiratory Rate 16 14 12 Blood Pressure 162/85 H 146/71 H 149/72 H Pulse Oximetry 98 98 97 Oxygen Delivery Method Room Air Room Air Room Air 11/29/24 23:52 11/30/24 01:24 11/30/24 02:02 Temperature 98.6 F 98 F Pulse Rate 73 67 61 Respiratory Rate 18 15 18 Blood Pressure 129/75 143/75 H 132/68 Pulse Oximetry 97 96 97 Oxygen Delivery Method Room Air Room Air Room Air BMI result Body Mass Index 30.4 Const Other: Awake well-appearing Orientation/consciousness: patient oriented x3 Resp Effort & Inspection: normal respiratory effort Cardio Other: bilateral pitting edema noted Skin Other: warm dry no rash Neuro Other: walks with an antalgic gait with a walker General: patient oriented x3, no focal motor deficits and CN's II-XI intact bilaterally Extrem Other: again, lymphedema noted bilaterally, overlying skin is thickened, dry, shiny erythematous with the areas that are weeping and blistering Psych Other: cooperative Medications Administered Discontinued Medications Generic Name Dose Route Start Last Admin Trade Name Freq PRN Reason Stop Dose Admin Cephalexin HCl 500 mg 11/30/24 00:59 11/30/24 01:23 Cephalexin 500 Mg Capsule PO 11/30/24 01:00 500 mg ONCE ONE Administration Pregabalin 100 mg 11/30/24 01:15 11/30/24 01:23 Pregabalin 100 Mg Capsule PO 11/30/24 01:16 100 mg ONCE ONE Administration Medical Decision Making Medical Decision Making MDM Narrative: 74-year-old male with a history of dependent edema, presents from home with generalized weakness since this morning. Denies recent cough or cold symptoms, fever, nausea, vomiting diarrhea. No dysuria. No chest pain no shortness of breath. Patient states he has chronic bilateral lower extremity swelling. problem: Age history: Per patient I have considered the following differential diagnoses: Anemia, dehydration, failure to thrive, pneumonia, viral syndrome, UTI Plan: Patient here with generalized weakness, without any specific symptom. We will screen basic labs a viral panel chest x-ray and a urinalysis. Patient relays that he has difficulty performing activities of daily living, that he was living at [facility] and recently lost his housing. He may require case management and PT if there was not an underlying medical cause to admit him to the hospital. I have independently reviewed the following tests: Labs:Slight leukocytosis, stable anemia, no electrolyte abnormality creatinine at baseline, viral panel negative, urine appears infected Chest x-ray: Impression: Mild elevation left hemidiaphragm. Atelectasis or mild consolidation left lower lung consider follow-up. Mild nonspecific bronchial wall thickening. EKG: sinus rhythm first-degree AV block, rate 81, no ischemic changes no ectopy Lab Data 11/29/24 18:43 11/29/24 18:43 Labs: Lab Results 11/29/24 11/29/24 11/29/24 Range/Units 18:43 20:28 20:32 WBC 12.0 H (4.8-10.8) X10*3/uL RBC 3.17 L (4.60-5.80) X10*6/uL Hgb 10.0 L (14.0-18.0) g/dl Hct 28.5 L (42.0-52.0) % MCV 89.9 (80.0-98.0) fL MCH 31.5 (27.0-33.0) pg MCHC 35.1 (31.0-36.0) g/dl RDW 12.3 (11.0-16.0) % Plt Count 317 (160-400) X10*3/uL MPV 9.5 (9.4-12.4) fL Immature Gran % (Auto) 0.3 (0.0-0.4) % Neut % (Auto) 64.8 (45-73) % Lymph % (Auto) 18.4 L (20-40) % [place] % (Auto) 11.4 H (2-11) % Eos % (Auto) 4.3 H (0-4) % Baso % (Auto) 0.8 (0-2) % Lymph # (Auto) 2.2 (1.2-4.9) X10*3/uL [place] # (Auto) 1.4 H (0.1-1.2) X10*3/uL Eos # (Auto) 0.5 H (0.0-0.4) X10*3/uL Baso # (Auto) 0.1 (0.0-0.2) X10*3/uL Abs Immat Gran (auto) 0.04 H (0.00-0.03) X10*3/uL Absolute Neuts (auto) 7.8 (2.0-8.3) x10*3/uL Absolute Nucleated RBC 0.000 (0.0-0.012) X10*3/uL Nucleated RBC % (auto) 0.0 (0.0-0.2) /100WBC Sodium 142 (135-145) mmol/L Potassium 4.2 (3.3-5.1) mmol/L Chloride 115 H (96-108) mmol/L Carbon Dioxide 21 L (22-29) mmol/L Anion Gap 10 L (12-20) BUN 44 H (9-16) mg/dL Creatinine 2.29 H (0.5-1.4) mg/dL Estim Creat Clear Calc 31.8 Estimated GFR 28 Random Glucose 99 (60-115) mg/dL Calcium 9.0 (8.4-10.2) mg/dL Magnesium 1.8 (1.6-2.6) mg/dL Total Bilirubin 0.4 (0.0-1.0) mg/dL AST 26 (5-37) U/L ALT 18 (0-40) U/L Alkaline Phosphatase 172 H (39-117) U/L Troponin I High Sens 14.1 17.5 (<3.5-35.0) ng/L B-Natriuretic Peptide 25 (<100) pg/mL Total Protein 6.7 (6.5-8.0) g/dL Albumin 3.3 L (3.5-5.0) g/dL Urine Color Yellow Urine Appearance Cloudy Urine pH 5.5 (5.0-9.0) Ur Specific [place] 1.015 (1.005-1.025) Urine Protein 100 (2+) H (Neg-Trace) mg/dL Urine Glucose (UA) Negative (Negative) mg/dL Urine Ketones Negative (Negative) mg/dL Urine Blood Small (1+) H (Negative) Urine Nitrite Negative (Negative) Ur Leukocyte Esterase Large (3+) H (Negative) Urine RBC 0-2 (0-2) /HPF Urine WBC >50 H (0-5) /HPF Ur Squamous Epith Cells 0-2 (0-2) /HPF Urine Bacteria 4+ (None Seen) Hyaline Casts 0-2 (0-2) /LPF Influenza Type A (PCR) NEGATIVE (Negative) Influenza Type B (PCR) NEGATIVE (Negative) RSV RNA Qual (PCR) NEGATIVE (Negative) SARS-CoV-2 RNA (RT-PCR) NEGATIVE (Negative) Discharge Plan Discharge Clinical Impression: Weakness, Urinary tract infection Patient Disposition: Still a Patient Print Language: Somali
[2024-11-30] MEDS: Pregabalin 100 MG CAPSULE PO ×3 (01:23→21:12)
[2024-11-30] MEDS: cephALEXin 500 MG CAPSULE PO (01:23)
--- NOTE | 2024-11-30 04:10 | MHC.EDTECH ---
pain, requesting Tylenol, RN aware
[2024-11-30] MEDS: Acetaminophen 325 MG TABLET 650 MG PO ×2 (04:14→12:07)
--- NOTE | 2024-11-30 04:44 | PC.NURSE ---
pt requesting Tylenol for h/a, pt medicated per MAR
--- NOTE | 2024-11-30 09:21 | PC.NURSE ---
pt is alert and oriented, skin pwd, respirations even and unlabored, pt reports left leg/foot pain 5/10, bilateral lower extremities swollen/red/blisters , vs stable attempted to do the pt's med/rec to my best knowledge with the pt but the pt is stating that he has not taken some of the medications like metoprolol even though he just filled it, so called pharmacy to please double check the med/rec
--- NOTE | 2024-11-30 10:38 | PHA.MEDREC ---
Pharmacy Consult ? Medication Reconciliation Pharmacy has reviewed the medication reconciliation completed by nursing. Spoke with pt: he takes Trulicity on Sundays. He could not confirm Metoloprolol recently started on 11/09/24, this was left off the med rec. He states he does not take trazodone for sleep, and uses Ketolorlac eye drops only for his Lasik surgery coming up, this was left off the med rec.
--- NOTE | 2024-11-30 10:38 | MHC.CM.ED ---
Received case management consult overnight. Patient came to the ER due to leg edema. Work up indicated +UTI. Physical therapy eval completed. Short term rehab is recommended. Met with patient in regards to d/c planning. Patient was d/c'd from [facility] on 11/10 after being with the facility for quite a while. Patient stated he did not want to be there fpc because I enjoy my independence . Patient has been couch surfing since being d/c'd from [facility]. Patient is not interested in returning to [facility]. [facility] is not willing to offer a bed. Patient has been actively working with 2 social workers and a group named [employer] to find housing. Patient basically looking to rent a room from someone. Patient is aware and agreeable to short term rehab. Patient understands it will be about 2 weeks and has no desire to stay longer than necessary because of his independence at baseline. 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 Patient has experienced back pain since then. Patient had an apartment in [place] until 2018 when emergency surgery was needed. He was then at [facility] for 2 years. Unfortunately due to medical issues and needing to come back to hospitals he has not been able to maintain permanent living situations. Patient is agreeable to referral being broadcasted locally to all facilities contracted with patient's insurance for bed availability. Referral made in [facility]. Continue to monitor for d/c needs.
[2024-11-30] MEDS: Multivitamin TABLET 1 TAB PO (12:06)
[2024-11-30] MEDS: Atorvastatin Calcium 40 MG TABLET PO (12:06)
[2024-11-30] MEDS: clonazePAM 0.5 MG TABLET PO (12:07)
[2024-11-30] MEDS: lisinopriL 20 MG TABLET PO (12:10)
--- NOTE | 2024-11-30 12:33 | PC.NURSE ---
pt reports that his suprabuic cath is do to be changed tomorrow, Patel MCCAIN is aware of this
--- NOTE | 2024-11-30 13:31 | MHC.CM.ED ---
[facility] is able to offer a bed. [facility] and [facility] are still reviewing. There are no other bed offers within 15 miles. Met with patient with bed availability. Patient's chocies: 1)[facility] 2) [facility]. Received notification that [facility] does not have a male bed to offer. [facility] has been asked to obtain ins auth. Continue to monitor for d/c needs.
--- NOTE | 2024-11-30 17:56 | PC.NURSE ---
Pt has been resting in NAD since arrival to overflow unit. Able to make needs known. a&ox4, resp even nonlaboured. Gait steady, slow with walker. No sxs infection around suprapubic cath insertion site. Due for change tomorrow. +2 pitting edema in bilat le's with several small bullae. Awaiting str placement, likely tmrw.
[2024-12-01] MEDS: Acetaminophen 325 MG TABLET 650 MG PO ×2 (00:07→10:21)
--- NOTE | 2024-12-01 05:11 | PC.NURSE ---
Assumed care of patient. Patient c/o headache at hs. Tylenol administered as per NOV . Patient slept througout night. Vital signs stable.
[2024-12-01 05:57] VITALS: BP 126/63; PULSE 60; RESP 16; TEMP 36.8; O2SAT 97
[2024-12-01 07:53] VITALS: BP 141/67; PULSE 63; RESP 17; TEMP 36.6; O2SAT 97
--- NOTE | 2024-12-01 09:08 | MHC.CM.ED ---
Patient remains in ER overflow. Insurance auth has been obtained by Jill Shahid. Patient can leave at 11am. [facility] booked. Med nec with chart. Patient, Susie RN and Penelope MCCAIN aware. Continue to monitor for d/c needs.
[2024-12-01] MEDS: Multivitamin TABLET 1 TAB PO (09:53)
[2024-12-01] MEDS: Atorvastatin Calcium 40 MG TABLET PO (09:53)
[2024-12-01] MEDS: cefuroxime axetiL 250 MG TABLET PO (09:54)
[2024-12-01] MEDS: Pregabalin 100 MG CAPSULE PO (09:54)
[2024-12-01 09:56] VITALS: BP 141/67
[2024-12-01] MEDS: lisinopriL 20 MG TABLET PO (09:56)
--- NOTE | 2024-12-01 11:07 | PC.NURSE ---
Pt A+OX3; vss; medicated per orders for BLAIR with some improvement reported by PT; bedside report gv to EMS for transport to rehab; all belongings with pt at time of transport
[2024-12-01 11:10] VITALS: BP 141/67; PULSE 64; RESP 16; TEMP 36.6; O2SAT 96
--- NOTE | 2024-12-05 19:03 | ED.GENADULT ---
HPI - General Adult General Chief complaint: General Medical Time Seen by Provider: 11/29/24 17:34 Related Data Home Medications ?Medication ?Instructions ?Recorded ?Confirmed acetaminophen 325 mg tablet 650 mg PO Q6H PRN Pain 11/30/24 11/30/24 atorvastatin 40 mg tablet 40 mg PO DAILY 11/30/24 11/30/24 carisoprodol 350 mg tablet 350 mg PO BID PRN pain 11/30/24 11/30/24 clonazepam 0.5 mg tablet 0.5 mg PO BID PRN Anxiety 11/30/24 11/30/24 dulaglutide 0.75 mg/0.5 mL 0.75 mg subcut CHEW 11/30/24 11/30/24 subcutaneous pen injector (Trulicity) lisinopril 20 mg tablet 20 mg PO DAILY 11/30/24 11/30/24 multivitamin 1 tab PO DAILY 11/30/24 11/30/24 pregabalin 100 mg capsule 100 mg PO TID 11/30/24 11/30/24 Allergies Allergy/AdvReac Type Severity Reaction Status Date / Time No Known Allergies Allergy Verified 11/29/24 17:37 [facility] Social History Social History Advance Directives Date on File: 11/30/25 Physical Exam ED Vital Signs: BMI result Body Mass Index 30.4 Course Reevaluation(s) Reevaluation #1: NOTE in ERROR meant to be addendum from previous visit please note this was not an initial visit - MARCIA MCCAIN to call SNF and address new culture - start on macrobid 12/05/24 829am The patient's urine culture resulted today growing Enterococcus fasciitis as well as staph aureus. The only antibiotic on this that is sensitive to both would be Macrobid otherwise would need to do dual antibiotic therapy patient's kidney function could handle Macrobid. Patient has been discharged he is now at goal on [place] he was not placed on medication but diagnosed with UTI we will forward results to them to address. May Lopez PA-C 12/05/24 Time: 19:04 Medications Administered Discontinued Medications Generic Name Dose Route Start Last Admin Trade Name Freq PRN Reason Stop Dose Admin Acetaminophen 650 mg 11/30/24 04:11 11/30/24 04:14 Acetaminophen 325 Mg Tablet PO 11/30/24 04:12 650 mg ONCE ONE Administration Acetaminophen 650 mg 11/30/24 11:57 12/01/24 10:21 Acetaminophen 325 Mg Tablet PO 650 mg QID PRN Administration Pain, Mild 1-3,fever,headache Atorvastatin Calcium 40 mg 11/30/24 11:45 12/01/24 09:53 Atorvastatin Calcium 40 Mg Tablet PO 40 mg DAILY NICOLASA Administration Cefuroxime Axetil 250 mg 12/01/24 09:00 12/01/24 09:54 Cefuroxime Axetil 250 Mg Tablet PO 12/08/24 08:59 250 mg BID NICOLASA Administration Cephalexin HCl 500 mg 11/30/24 00:59 11/30/24 01:23 Cephalexin 500 Mg Capsule PO 11/30/24 01:00 500 mg ONCE ONE Administration Clonazepam 0.5 mg 11/30/24 11:32 11/30/24 12:07 Clonazepam 0.5 Mg Tablet PO 0.5 mg BID PRN Administration Anxiety Lisinopril 20 mg 11/30/24 11:45 12/01/24 09:56 Lisinopril 20 Mg Tablet PO 20 mg DAILY NICOLASA Administration Protocol Multivitamins/Vitamin C 1 tab 11/30/24 11:45 12/01/24 09:53 Multivitamin Tablet PO 1 tab DAILY NICOLASA Administration Pregabalin 100 mg 11/30/24 01:15 11/30/24 01:23 Pregabalin 100 Mg Capsule PO 11/30/24 01:16 100 mg ONCE ONE Administration Pregabalin 100 mg 11/30/24 15:00 12/01/24 09:54 Pregabalin 100 Mg Capsule PO 100 mg TID NICOLASA Administration Medical Decision Making Lab Data 11/29/24 18:43 11/29/24 18:43 Labs: Lab Results 11/29/24 11/29/24 11/29/24 Range/Units 18:43 20:28 20:32 WBC 12.0 H (4.8-10.8) X10*3/uL RBC 3.17 L (4.60-5.80) X10*6/uL Hgb 10.0 L (14.0-18.0) g/dl Hct 28.5 L (42.0-52.0) % MCV 89.9 (80.0-98.0) fL MCH 31.5 (27.0-33.0) pg MCHC 35.1 (31.0-36.0) g/dl RDW 12.3 (11.0-16.0) % Plt Count 317 (160-400) X10*3/uL MPV 9.5 (9.4-12.4) fL Immature Gran % (Auto) 0.3 (0.0-0.4) % Neut % (Auto) 64.8 (45-73) % Lymph % (Auto) 18.4 L (20-40) % Saunders % (Auto) 11.4 H (2-11) % Eos % (Auto) 4.3 H (0-4) % Baso % (Auto) 0.8 (0-2) % Lymph # (Auto) 2.2 (1.2-4.9) X10*3/uL Saunders # (Auto) 1.4 H (0.1-1.2) X10*3/uL Eos # (Auto) 0.5 H (0.0-0.4) X10*3/uL Baso # (Auto) 0.1 (0.0-0.2) X10*3/uL Abs Immat Gran (auto) 0.04 H (0.00-0.03) X10*3/uL Absolute Neuts (auto) 7.8 (2.0-8.3) x10*3/uL Absolute Nucleated RBC 0.000 (0.0-0.012) X10*3/uL Nucleated RBC % (auto) 0.0 (0.0-0.2) /100WBC Sodium 142 (135-145) mmol/L Potassium 4.2 (3.3-5.1) mmol/L Chloride 115 H (96-108) mmol/L Carbon Dioxide 21 L (22-29) mmol/L Anion Gap 10 L (12-20) BUN 44 H (9-16) mg/dL Creatinine 2.29 H (0.5-1.4) mg/dL Estim Creat Clear Calc 31.8 Estimated GFR 28 Random Glucose 99 (60-115) mg/dL Calcium 9.0 (8.4-10.2) mg/dL Magnesium 1.8 (1.6-2.6) mg/dL Total Bilirubin 0.4 (0.0-1.0) mg/dL AST 26 (5-37) U/L ALT 18 (0-40) U/L Alkaline Phosphatase 172 H (39-117) U/L Troponin I High Sens 14.1 17.5 (<3.5-35.0) ng/L B-Natriuretic Peptide 25 (<100) pg/mL Total Protein 6.7 (6.5-8.0) g/dL Albumin 3.3 L (3.5-5.0) g/dL Urine Color Yellow Urine Appearance Cloudy Urine pH 5.5 (5.0-9.0) Ur Specific [place] 1.015 (1.005-1.025) Urine Protein 100 (2+) H (Neg-Trace) mg/dL Urine Glucose (UA) Negative (Negative) mg/dL Urine Ketones Negative (Negative) mg/dL Urine Blood Small (1+) H (Negative) Urine Nitrite Negative (Negative) Ur Leukocyte Esterase Large (3+) H (Negative) Urine RBC 0-2 (0-2) /HPF Urine WBC >50 H (0-5) /HPF Ur Squamous Epith Cells 0-2 (0-2) /HPF Urine Bacteria 4+ (None Seen) Hyaline Casts 0-2 (0-2) /LPF Influenza Type A (PCR) NEGATIVE (Negative) Influenza Type B (PCR) NEGATIVE (Negative) RSV RNA Qual (PCR) NEGATIVE (Negative) SARS-CoV-2 RNA (RT-PCR) NEGATIVE (Negative) Discharge Plan Discharge Clinical Impression: Weakness, Urinary tract infection Patient Disposition: Still a Patient Transfer Details: Transfer to [facility] Prescriptions: No Action clonazepam 0.5 mg tablet 0.5 mg PO BID PRN (Reason: Anxiety) carisoprodol 350 mg tablet 350 mg PO BID PRN (Reason: pain) atorvastatin 40 mg tablet 40 mg PO DAILY lisinopril 20 mg tablet 20 mg PO DAILY pregabalin 100 mg capsule 100 mg PO TID Trulicity 0.75 mg/0.5 mL pen injector 0.75 mg subcut CHEW multivitamin Tablet 1 tab PO DAILY acetaminophen 325 mg Tablet 650 mg PO Q6H PRN (Reason: Pain) Referrals: [facility] [Outside] Interventions: ED Discharge Assessment Last Done: 12/01/24 11:10 Discharge Date/Time: 12/01/24 11:11 Print Language: [place] Citizen
== END 2024-12-01 11:11 | disposition still patient (30) ==
PROVIDERS: Physician Assistant Medical; Emergency Provider Emergency Medicine
DX: R53.1 Weakness (principal); N39.0 Urinary tract infection, site not specified; B95.2 Enterococcus as the cause of diseases classified elsewhere; B95.61 Methicillin susceptible Staphylococcus aureus infection as the cause of diseases classified elsewhere; R60.0 Localized edema; Z03.818 Encounter for observation for suspected exposure to other biological agents ruled out; Z79.85 Long-term (current) use of injectable non-insulin antidiabetic drugs; Z79.899 Other long term (current) drug therapy
CPT/HCPCS: 0241U; 36415; 71045; 80053; 81001; 83735; 83880; 84484; 85025; 87086; 87088; 87186; 93005; 97162; 99285

== ENCOUNTER → 2024-11-29 17:34 | Outpatient (BNV) | payer MEDICARE, MEDICAID, SELFPAY | PROVIDERS: Emergency Provider Emergency Medicine; Visit Provider Internal Medicine Cardiovascular Disease | DX: I44.0 Atrioventricular block, first degree (principal); J98.4 Other disorders of lung | CPT/HCPCS: 93010 ==

== ENCOUNTER → 2024-11-29 18:08 | Outpatient (BNV) | payer MEDICARE, MEDICAID, SELFPAY | PROVIDERS: Visit Provider Radiology Diagnostic Radiology | DX: R05.9 Cough, unspecified (principal) | CPT/HCPCS: 71045 ==